=== PATIENT | female | born 1990 | race Caucasian/White ===

== ENCOUNTER 2016-05-13 10:51 | Emergency (ER) | payer OTHER ==
[~2016-05-13 10:51] MED LIST: ACET50TAOT PO; ANUS2.5C2 TOP; BREO1INH INH; DIPH50CA PO; DOCU10ELUD PO; IBUP600T26 PO; MOM30SS PO; MOTR200T44 PO; PROA1AER INH; TYLE325T5 PO; VALT500T PO
[2016-05-13] MEDS ORDERED: NORCO, ANEXSIA 5/325MG TABLET (HYDROcodone/ACETAMINOPHEN) As Ordered ONE (11:38)
--- NOTE | 2016-05-13 12:38 | REP ---
THORACIC SPINE, FOUR VIEWS: HISTORY: Trauma. There is no acute fracture or subluxation. The intervertebral discs are normal in height. There is minimal scoliosis of the upper thoracic spine convex to the right. IMPRESSION: There is no acute fracture or subluxation. Signed by Brett Arshad MD 05/13/2016 12:50 P
--- NOTE | 2016-05-13 12:51 | EDDOCDS ---
Physician Documentation [facility] Name: Matilde Anguiano Age: 25 yrs Sex: Female : 1990 Arrival Date: 05/13/2016 Time: 10:51 Bed PD Private MD: Xiao Black Disposition: 05/13/16 12:44 Discharged to Home/Self Care. Impression: Fall due to ice and snow, Contusion of back wall of thorax. - Condition is Stable. - Discharge Instructions: Contusion. - Prescriptions for Ultram 50 mg Oral Tablet - take 1 tablet by ORAL route every 6 hours As needed MDD: 4 tabs; 12 tablet. - Medication Reconciliation, Work Release Form - 1 day form. - Follow up: Xiao Black; When: Call to arrange an appointment; Reason: Wound/Symptom Recheck, Recheck today's complaints, Worsening of conditions, Continuance of care. - Problem is new. - Symptoms have improved. Historical: - Allergies: Amoxicillin (Rash); Cefzil (Rash); Pediazole (Rash); Suprax (Rash); - Home Meds: 1. albuterol sulfate 90 mcg/actuation Inhl HFAA 2 puffs every 4-6 hours as needed 2. Arnuity Ellipta inhalation Unknown inhalation - PMHx: Asthma; Herpes; - PSHx: Appendectomy; - Social history: Smoking status: Patient uses tobacco products, current every day smoker. No barriers to communication noted, The patient speaks fluent Greenlandic, Speaks appropriately for age. - Family history: Not pertinent. - : The pt / caregiver states he / she is not on anticoagulants. Home medication list is obtained from the patient. - Exposure Risk Screening:: None identified. 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 6 in. (167.64 cm) (R); Pain 6/10; 10:52 Body Mass Index 38.74 (108.86 kg, 167.64 cm) ct3 MDM: 11:32 HYDROcodone-acetaminophen 5 mg-325 mg 2 tabs PO once ordered. cc10 11:33 Spine, Thoracic 3 Views Ordered. EDMS 11:46 Financial registration complete. va Administered Medications: 11:40 Drug: HYDROcodone-acetaminophen 2 tabs [hydrocodone 5 mg-acetaminophen 325 mg tablet (2 yanethk tabs)] Route: PO; Signatures: Dispatcher [employer] EDND [place]io Anne RN RN ml6 Kylah Chase RN RN Kit Beasley PA-C PATiffanie cc10 Glenny Aiken Jean RN jmk MTDD
--- NOTE | 2016-05-13 12:51 | EDDOCDS ---
Nurse's Notes [facility] Name: Matilde Anguiano Age: 25 yrs Sex: Female : 1990 Arrival Date: 05/13/2016 Time: 10:51 Bed PD Private MD: Xiao Black Diagnosis: Fall due to ice and snow;Contusion of back wall of thorax Presentation: 05/13 11:02 Presenting complaint: Patient states: "I fell on my back in my driveway this morning." ead pt c/o upper back pain that radiates down. Denies hitting head or LOC with fall. Acute neurological deficits are not present. Mechanism of Injury: Fall fell from standing. Adult Sepsis Screening: The patient does not have new or worsening altered mentation. Patient's respiratory rate is less than 22. Systolic blood pressure is greater than 100. Patient has a qSOFA score of 0- Negative Sepsis Screen. Suicide/Homicide risk assessment- the patient denies having any suicidal and/or homicidal ideations and does not present with any other emotional, behavioral or mental health complaints. Status: Patient is not a supervisor volunteer services or dependent. Transition of care: patient was not received from another setting of care. 11:02 Acuity: ANGELICA Level 4 ead 11:02 Method Of Arrival: Walkin/Carried/Asstd ead Triage Assessment: 11:04 General: Appears in no apparent distress, Behavior is appropriate for age, cooperative. ead Pain: Location: back Pain currently is 6 out of 10 on a pain scale. HIV screening NA for this visit Offered previously. Neurological: Level of Consciousness is awake, alert, obeys commands, Oriented to person, place, time. Respiratory: Airway is patent Respiratory effort is even, unlabored. Musculoskeletal: Reports pain in back. 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 albuterol sulfate 90 mcg/actuation Inhl HFAA 2 puffs every 4-6 hours as needed 2. Arnuity Ellipta inhalation Unknown inhalation - PMHx: Asthma; Herpes; - PSHx: Appendectomy; - Social history: Smoking status: Patient uses tobacco products, current every day smoker. No barriers to communication noted, The patient speaks fluent Trinidadian, Speaks appropriately for age. - Family history: Not pertinent. - : The pt / caregiver states he / she is not on anticoagulants. Home medication list is obtained from the patient. - Exposure Risk Screening:: None identified. Screenin:49 Screening information is obtained from the patient. Fall risk: No risks identified. ml6 Assistance ADL's: requires no assistance with activities of daily living. Abuse/DV Screen: The patient / caregiver reports he/she is: not in a situation that causes fear, pain or injury. Nutritional screening: No deficits noted. Advance Directives: Currently, there is no health care proxy. home support is adequate. Assessment: 12:48 General: Appears in no apparent distress, Behavior is appropriate for age, cooperative. ml6 Pain: Denies pain. Neurological: No deficits noted. Level of Consciousness is awake, alert, Oriented to person, place, time, Blasting Contract Miner are equal bilaterally Moves all extremities. Gait is steady. Cardiovascular: No deficits noted. Capillary refill < 3 seconds is brisk in bilateral fingers toes Heart tones S1 S2 present. Respiratory: No deficits noted. Airway is patent Respiratory effort is even, unlabored, Respiratory pattern is regular, symmetrical, Breath sounds are clear bilaterally. GI: No deficits noted. Vital Signs: 10:52 BP 143 / 63; Pulse 79; Resp 18; Temp 98.6(O); Pulse Ox 100% on R/A; Weight 108.86 kg ct3 (R); Height 5 ft. 6 in. (167.64 cm) (R); Pain 6/10; 10:52 Body Mass Index 38.74 (108.86 kg, 167.64 cm) ct3 Vitals: 10:52 Log In Time: May 13, 2016 at 10:50. ct3 ED Course: 10:52 Patient visited by Chelo Chakraborty PCA. ct3 10:52 Xiao Black is Private Physician. ct3 10:52 Patient moved to Waiting ct3 10:53 Patient moved to Pre RCE ct3 11:03 Triage Initiated ead 11:05 Patient moved to Triage 3 ead 11:27 [facility] cc10 11:27 Trevon Flynn MD is Attending Physician. cc10 11:27 Patient visited by Kit Brown PA-C. cc10 11:27 Patient visited by Kit Brown PA-C. cc10 11:40 Patient moved to TR1 ar3 12:36 Patient moved to PD2 / ml6 12:39 Spine, Thoracic 3 Views Returned. EDMS 12:43 Xiao Black is Referral Physician. cc10 12:49 The patient / caregiver is instructed regarding the plan of care and ED course. ml6 12:49 No IV's were initiated during this patient's visit. No procedures done that require ml6 assistance. Administered Medications: 11:40 Drug: HYDROcodone-acetaminophen 2 tabs [hydrocodone 5 mg-acetaminophen 325 mg tablet (2 jmk tabs)] Route: PO; Order Results: Radiology Order: Spine, Thoracic 3 Views Test: Spine, Thoracic 3 Views REASON FOR EXAMINATION: Trauma; ; THORACIC SPINE, FOUR VIEWS:; ; HISTORY: Trauma.; ; There is no acute fracture or subluxation. The intervertebral discs are normal in; height. There is minimal scoliosis of the upper thoracic spine convex to the; right.; ; IMPRESSION:; There is no acute fracture or subluxation.; ; ; ; Unreviewed; Outcome: 12:44 Discharge ordered by Provider. cc10 12:49 Discharge Assessment: patient administered narcotics - no. The following High Risk ml6 Discharge criteria are identified: None. Discharged to home ambulatory, with friend. Condition: stable. Discharge instructions given to. No special radiology studies were completed. Property :Personal belongings accompany Pt. 12:51 Patient left the ED. ml6 Signatures: Dispatcher [employer] EDNV Tom Tuttle RN RN jmk Lowe, Matthew, RN RN ml6 Liset Estrella, ANALYTICS SENIOR MANAGER ANALYTICS SENIOR MANAGER ar3 Chelo Chakraborty, ANALYTICS SENIOR MANAGER ANALYTICS SENIOR MANAGER ct3 Kylah Chase,RN Kit Manning PA-C PA-C cc10 MTDD
--- NOTE | 2016-05-15 13:52 | EDDOCDS ---
Physician Documentation [facility] Name: Matilde Anguiano Age: 25 yrs Sex: Female : 1990 Arrival Date: 05/13/2016 Time: 10:51 Bed PD Private MD: Xiao Black Disposition: 05/13/16 12:44 Discharged to Home/Self Care. Impression: Fall due to ice and snow, Contusion of back wall of thorax. - Condition is Stable. - Discharge Instructions: Contusion. - Prescriptions for Ultram 50 mg Oral Tablet - take 1 tablet by ORAL route every 6 hours As needed MDD: 4 tabs; 12 tablet. - Medication Reconciliation, Work Release Form - 1 day form. - Follow up: Xiao Black; When: Call to arrange an appointment; Reason: Wound/Symptom Recheck, Recheck today's complaints, Worsening of conditions, Continuance of care. - Problem is new. - Symptoms have improved. Historical: - Allergies: Amoxicillin (Rash); Cefzil (Rash); Pediazole (Rash); Suprax (Rash); - Home Meds: 1. albuterol sulfate 90 mcg/actuation Inhl HFAA 2 puffs every 4-6 hours as needed 2. Arnuity Ellipta inhalation Unknown inhalation - PMHx: Asthma; Herpes; - PSHx: Appendectomy; - Social history: Smoking status: Patient uses tobacco products, current every day smoker. No barriers to communication noted, The patient speaks fluent Luxembourger, Speaks appropriately for age. - Family history: Not pertinent. - : The pt / caregiver states he / she is not on anticoagulants. Home medication list is obtained from the patient. - Exposure Risk Screening:: None identified. LICENSED FINAL EXPENSE AGENTS: 05/13 11:04 LMP 04/22/2016 ead Vital Signs: 10:52 BP 143 / 63; Pulse 79; Resp 18; Temp 98.6(O); Pulse Ox 100% on R/A; Weight 108.86 kg / ct3 240 lbs (R); Height 5 ft. 6 in. (167.64 cm) (R); Pain 6/10; 10:52 Body Mass Index 38.74 (108.86 kg, 167.64 cm) ct3 MDM: 11:32 HYDROcodone-acetaminophen 5 mg-325 mg 2 tabs PO once ordered. cc10 11:33 Spine, Thoracic 3 Views Ordered. EDMS 11:46 Financial registration complete. az 13:23 [facility] Payment Agreement was scanned into [employer] and attached to record. az 15:39 T-Sheet-- Draft Copy was scanned into [employer] and attached to record. klr Administered Medications: 11:40 Drug: HYDROcodone-acetaminophen 2 tabs [hydrocodone 5 mg-acetaminophen 325 mg tablet (2 jmk tabs)] Route: PO; Signatures: Dispatcher [employer] EDGA [place] Anne, RN RN ml6 Kylah Chase RN RN Kit Beasley, PA-C PA-C cc10 Glenny Aiken Kathie klr Knapp, Jean RN jmk The chart was reviewed and I authenticate all verbal orders and agree with the evaluation and treatment provided.Attachments: 13:23 [facility] Payment Agreement az 15:39 T-Sheet-- Draft Copy klr Chart Complete MTDD
--- NOTE | 2016-05-15 13:52 | EDDOCDS ---
Nurse's Notes [facility] Name: Matilde Anguiano Age: 25 yrs Sex: Female : 1990 Arrival Date: 05/13/2016 Time: 10:51 Bed PD Private MD: Xiao Black Diagnosis: Fall due to ice and snow;Contusion of back wall of thorax Presentation: 05/13 11:02 Presenting complaint: Patient states: "I fell on my back in my driveway this morning." ead pt c/o upper back pain that radiates down. Denies hitting head or LOC with fall. Acute neurological deficits are not present. Mechanism of Injury: Fall fell from standing. Adult Sepsis Screening: The patient does not have new or worsening altered mentation. Patient's respiratory rate is less than 22. Systolic blood pressure is greater than 100. Patient has a qSOFA score of 0- Negative Sepsis Screen. Suicide/Homicide risk assessment- the patient denies having any suicidal and/or homicidal ideations and does not present with any other emotional, behavioral or mental health complaints. Status: Patient is not a legal service specialist or dependent. Transition of care: patient was not received from another setting of care. 11:02 Acuity: ANGELICA Level 4 ead 11:02 Method Of Arrival: Walkin/Carried/Asstd ead Triage Assessment: 11:04 General: Appears in no apparent distress, Behavior is appropriate for age, cooperative. ead Pain: Location: back Pain currently is 6 out of 10 on a pain scale. HIV screening NA for this visit Offered previously. Neurological: Level of Consciousness is awake, alert, obeys commands, Oriented to person, place, time. Respiratory: Airway is patent Respiratory effort is even, unlabored. Musculoskeletal: Reports pain in back. 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 albuterol sulfate 90 mcg/actuation Inhl HFAA 2 puffs every 4-6 hours as needed 2. Arnuity Ellipta inhalation Unknown inhalation - PMHx: Asthma; Herpes; - PSHx: Appendectomy; - Social history: Smoking status: Patient uses tobacco products, current every day smoker. No barriers to communication noted, The patient speaks fluent Macedonian, Speaks appropriately for age. - Family history: Not pertinent. - : The pt / caregiver states he / she is not on anticoagulants. Home medication list is obtained from the patient. - Exposure Risk Screening:: None identified. Screenin:49 Screening information is obtained from the patient. Fall risk: No risks identified. ml6 Assistance ADL's: requires no assistance with activities of daily living. Abuse/DV Screen: The patient / caregiver reports he/she is: not in a situation that causes fear, pain or injury. Nutritional screening: No deficits noted. Advance Directives: Currently, there is no health care proxy. home support is adequate. Assessment: 12:48 General: Appears in no apparent distress, Behavior is appropriate for age, cooperative. ml6 Pain: Denies pain. Neurological: No deficits noted. Level of Consciousness is awake, alert, Oriented to person, place, time, Physical Design Engineer are equal bilaterally Moves all extremities. Gait is steady. Cardiovascular: No deficits noted. Capillary refill < 3 seconds is brisk in bilateral fingers toes Heart tones S1 S2 present. Respiratory: No deficits noted. Airway is patent Respiratory effort is even, unlabored, Respiratory pattern is regular, symmetrical, Breath sounds are clear bilaterally. GI: No deficits noted. Vital Signs: 10:52 BP 143 / 63; Pulse 79; Resp 18; Temp 98.6(O); Pulse Ox 100% on R/A; Weight 108.86 kg ct3 (R); Height 5 ft. 6 in. (167.64 cm) (R); Pain 6/10; 10:52 Body Mass Index 38.74 (108.86 kg, 167.64 cm) ct3 Vitals: 10:52 Log In Time: May 13, 2016 at 10:50. ct3 ED Course: 10:52 Patient visited by Chelo Chakraborty PCA. ct3 10:52 Xiao Black is Private Physician. ct3 10:52 Patient moved to Waiting ct3 10:53 Patient moved to Pre RCE ct3 11:03 Triage Initiated ead 11:05 Patient moved to Triage 3 ead 11:27 Kit [facility] cc10 11:27 Trevon Flynn MD is Attending Physician. cc10 11:27 Patient visited by Kit Brown PA-C. cc10 11:27 Patient visited by Kit Brown PA-C. cc10 11:40 Patient moved to TR1 ar3 12:36 Patient moved to PD2 / ml6 12:39 Spine, Thoracic 3 Views Returned. EDMS 12:43 Xiao Black is Referral Physician. cc10 12:49 The patient / caregiver is instructed regarding the plan of care and ED course. ml6 12:49 No IV's were initiated during this patient's visit. No procedures done that require ml6 assistance. 13:23 [facility] Payment Agreement was scanned into [employer] and attached to record. de 15:39 T-Sheet-- Draft Copy was scanned into [employer] and attached to record. klr Administered Medications: 11:40 Drug: HYDROcodone-acetaminophen 2 tabs [hydrocodone 5 mg-acetaminophen 325 mg tablet (2 jmk tabs)] Route: PO; Order Results: Radiology Order: Spine, Thoracic 3 Views Test: Spine, Thoracic 3 Views REASON FOR EXAMINATION: Trauma; THORACIC SPINE, FOUR VIEWS:; ; HISTORY: Trauma.; ; There is no acute fracture or subluxation. The intervertebral discs are normal in; height. There is minimal scoliosis of the upper thoracic spine convex to the; right.; ; IMPRESSION:; ; There is no acute fracture or subluxation.; ; ; Signed by; Brett Arshad MD 05/13/2016 12:50 P; Outcome: 12:44 Discharge ordered by Provider. cc10 12:49 Discharge Assessment: patient administered narcotics - no. The following High Risk ml6 Discharge criteria are identified: None. Discharged to home ambulatory, with friend. Condition: stable. Discharge instructions given to. No special radiology studies were completed. Property :Personal belongings accompany Pt. 12:51 Patient left the ED. ml6 Signatures: [facility]patcher [facility] ED[facility] Tom Tuttle RN RN jmk Lowe, Matthew, RN RN ml6 Liset Estrella, SUPERVISOR TUBING SUPERVISOR TUBING ar3 Chelo Chakraborty, SUPERVISOR TUBING SUPERVISOR TUBING ct3 Kylah Chase RN RN ead Coniski, Colin, PA-C PA-C cc10 Glenny Aiken Kathie klr Chart Complete MTDD
--- NOTE | 2016-05-15 13:52 | EDDOCDS ---
Physician Documentation [facility] Name: Matilde Anguiano Age: 25 yrs Sex: Female : 1990 Arrival Date: 05/13/2016 Time: 10:51 Bed PD Private MD: Xiao Black Disposition: 05/13/16 12:44 Discharged to Home/Self Care. Impression: Fall due to ice and snow, Contusion of back wall of thorax. - Condition is Stable. - Discharge Instructions: Contusion. - Prescriptions for Ultram 50 mg Oral Tablet - take 1 tablet by ORAL route every 6 hours As needed MDD: 4 tabs; 12 tablet. - Medication Reconciliation, Work Release Form - 1 day form. - Follow up: Xiao Black; When: Call to arrange an appointment; Reason: Wound/Symptom Recheck, Recheck today's complaints, Worsening of conditions, Continuance of care. - Problem is new. - Symptoms have improved. Historical: - Allergies: Amoxicillin (Rash); Cefzil (Rash); Pediazole (Rash); Suprax (Rash); - Home Meds: 1. albuterol sulfate 90 mcg/actuation Inhl HFAA 2 puffs every 4-6 hours as needed 2. Arnuity Ellipta inhalation Unknown inhalation - PMHx: Asthma; Herpes; - PSHx: Appendectomy; - Social history: Smoking status: Patient uses tobacco products, current every day smoker. No barriers to communication noted, The patient speaks fluent Salvadorean, Speaks appropriately for age. - Family history: Not pertinent. - : The pt / caregiver states he / she is not on anticoagulants. Home medication list is obtained from the patient. - Exposure Risk Screening:: None identified. 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 6 in. (167.64 cm) (R); Pain 6/10; 10:52 Body Mass Index 38.74 (108.86 kg, 167.64 cm) ct3 MDM: 11:32 HYDROcodone-acetaminophen 5 mg-325 mg 2 tabs PO once ordered. cc10 11:33 Spine, Thoracic 3 Views Ordered. EDMS 11:46 Financial registration complete. az 13:23 [facility] Payment Agreement was scanned into [employer] and attached to record. az 15:39 T-Sheet-- Draft Copy was scanned into [employer] and attached to record. klr Administered Medications: 11:40 Drug: HYDROcodone-acetaminophen 2 tabs [hydrocodone 5 mg-acetaminophen 325 mg tablet (2 jmk tabs)] Route: PO; Signatures: Dispatcher [employer] EDWA [place] Anne, RN RN ml6 Kylah Chase RN RN Kit Beasley, PA-C PA-C cc10 Glenny Aiken Kathie klr Knapp, Jean RN jmk The chart was reviewed and I authenticate all verbal orders and agree with the evaluation and treatment provided.Attachments: 13:23 [facility] Payment Agreement az 15:39 T-Sheet-- Draft Copy klr Chart Complete MTDD
== END 2016-05-13 12:51 | disposition home or self-care (01) ==
LOC: M ED 10:51
DX: S20.229A Contusion of unspecified back wall of thorax, initial encounter (principal); W00.0XXA Fall on same level due to ice and snow, initial encounter; Y92.019 Unspecified place in single-family (private) house as the place of occurrence of the external cause; Y93.9 Activity, unspecified; Y99.9 Unspecified external cause status; J45.909 Unspecified asthma, uncomplicated; Z72.0 Tobacco use; Z88.0 Allergy status to penicillin; Z88.1 Allergy status to other antibiotic agents

== ENCOUNTER → 2016-05-20 | Outpatient (CLI) | payer OTHER ==
--- NOTE | 2016-05-20 13:20 | REP ---
Clinical: Lower back pain. Technique: AP and lateral views of the lumbosacral spine. Findings: Alignment and lordosis maintained. Mild hypertrophic facet changes at the L5-S1 level cannot be excluded and underlying spondylolysis cannot be excluded. There is no evidence for acute fracture / compression injury or subluxation. Impression: Hypertrophic facet changes at L5-S1 may reflect underlying chronic spondylolysis. Otherwise normal alignment and lordosis. Signed by Jose Ribeiro MD 05/20/2016 01:11 P
== END ==
LOC: M RAD 12:38
PROVIDERS: ATTEND Nurse Practitioner Adult Health
DX: S30.0XXD Contusion of lower back and pelvis, subsequent encounter (principal); M54.5 Low back pain; M25.551 Pain in right hip; M51.36 Other intervertebral disc degeneration, lumbar region; Y92.9 Unspecified place or not applicable; Y93.89 Activity, other specified; Y99.8 Other external cause status; X58.XXXD Exposure to other specified factors, subsequent encounter

== ENCOUNTER → 2016-05-31 | Outpatient (CLI) | payer OTHER ==
--- NOTE | 2016-06-01 08:57 | REP ---
LUMBAR SPINE WITHOUT CONTRAST: HISTORY: Back pain. There is no disc bulge or herniation at the L1-2 through L3-4 and L5-S1 levels. The nerves exit the neural foramina without compression. A diffuse disc bulge and small central disc protrusion are present at the L4-5 level. There is minimal compression of the thecal sac. The L4 nerves exit the neural foramina without compression. The conus medullaris is normal in appearance terminating at the level of the L1-2 intervertebral disc. Normal signal intensity is present in the lumbar intervertebral discs and vertebral bodies. A 1.5 cm cyst is present in the right kidney. A cystic structure is present in the left pelvis. This is incompletely visualized. IMPRESSION: 1. Diffuse disc bulge and small central disc protrusion at the L4-5 level with minimal thecal sac compression. 2. 1.5 cm right renal cyst. 3. There is a cystic structure in the left pelvis that is incompletely seen. Ultrasound of the kidneys and pelvis may be helpful for further evaluation. Signed by Brett Arshad MD 06/03/2016 08:41 A
== END ==
LOC: M RAD 14:33
PROVIDERS: ATTEND Nurse Practitioner Adult Health
DX: S30.0XXD Contusion of lower back and pelvis, subsequent encounter (principal); M54.5 Low back pain; M25.551 Pain in right hip; N28.1 Cyst of kidney, acquired; N94.89 Other specified conditions associated with female genital organs and menstrual cycle

== ENCOUNTER 2016-07-09 12:20 | Emergency (ER) | payer OTHER ==
[~2016-07-09] VITALS: Ht 167.6 cm; Wt 108.9 kg
[2016-07-09 16:19] VITALS: BP 155/72
[2016-07-09] MEDS ORDERED: ZANA4CAP PO (16:29)
[2016-07-09] MEDS ORDERED: MOBI7.5T10 PO (16:29)
[2016-07-09] MEDS ORDERED: PRED20TA PO (16:29)
[2016-07-09] MEDS ORDERED: PERC5TAB6 PO (16:29)
[2016-07-09] MEDS ORDERED: NAPROXEN 250 MG TAB PO ONE (16:30)
== END 2016-07-09 16:39 | disposition home or self-care (01) ==
LOC: M ED 13:24
DX: M54.5 Low back pain (principal); G89.29 Other chronic pain; J45.909 Unspecified asthma, uncomplicated; F17.200 Nicotine dependence, unspecified, uncomplicated; Z88.1 Allergy status to other antibiotic agents; Z88.0 Allergy status to penicillin; Z88.8 Allergy status to other drugs, medicaments and biological substances; Z79.51 Long term (current) use of inhaled steroids

== ENCOUNTER → 2016-08-02 | Outpatient (CLI) | payer OTHER ==
[~2016-08-02] MED LIST changes: +MOBI7.5T10 PO; +PERC5TAB6 PO; +PRED20TA PO; +ZANA4CAP PO
--- NOTE | 2016-08-13 01:44 | ECWPNPC ---
PATIENT NAME: CEDRICK QUARLES : 1990 GENDER: FEMALE VISIT DATE: 08/02/2016 DISCHARGE DATE: 08/02/16 1306 VISIT LOCKED DATE TIME: PHYSICIAN: TRUDY LOUIS RESOURCE: TRUDY LOUIS REASON FOR APPOINTMENT 1. LOW BACK PAIN HISTORY OF PRESENT ILLNESS 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 OF NIXON TRAORE NP FOR LOW BACK PAIN THAT RADIATES DOWN RIGHT POSTERIOR LEG.THIS BEGAN AFTER FALLING ON ICE GOING DOWN STAIRS IN MAY 2016.DESCRIBES PAIN CONSTANT LOW BACK ACHE WITH INTERMITTENT RIGHT POSTERIOR LEG PAIN.PAIN IS AGGREVATED BY PROLONGED SITTING,WALKING AND LIFTING.PAIN IS RELIEVED BY LAYING DOWN AND IBUPROFEN OR TYLENOL.NO PRIOR TREATMENTS.RATING PAIN VAS 8/10.NO BOWEL OR BLADDER INCONTINENCE .NO RECENT FEVER ,ILLNESS OR SUDDEN WEIGHT LOSS. SCREENING :NO FALLS IN THE PAST YEAR PAIN SCREENING: PATIENT HAS A COMPLAINT OF ACUTE OR CHRONIC PAIN :YES CURRENT MEDICATIONS TAKING VENTOLIN HFA 108 (90 BASE) MCG/ACT AEROSOL SOLUTION 2 PUFFS NEEDED INHALATION EVERY 4 HRS TAKING ARNUITY ELLIPTA 200 MCG/ACT AEROSOL POWDER BREATH ACTIVATED 1 PUFF INHALATION ONCE A DAY TAKING FLUTICASONE FUROATE 200 MCG/ACT AEROSOL POWDER BREATH ACTIVATED 1 PUFF INHALATION ONCE A DAY PRN TAKING IBUPROFEN 800 MG TABLET 1 TABLET WITH FOOD OR MILK ORALLY THREE TIMES DAILY NEEDED TAKING TYLENOL EXTRA STRENGTH 500 MG TABLET 2 TABLETS NEEDED ORALLY EVERY 6 HRS DISCONTINUED VALTREX 500 MG TABLET 2 TABLETS ORALLY EVERY 12 HRS DISCONTINUED METAMUCIL 0.52 GM CAPSULE 2 CAPSULES WITH 8 OUNCES OF LIQUID ORALLY THREE TIMES A DAY DISCONTINUED VALACYCLOVIR HCL 500 MG TABLET 2 TABLETS ORALLY EVERY 12 HRS DISCONTINUED CETIRIZINE HCL 10 MG TABLET 1 TABLET ORALLY ONCE A DAY DISCONTINUED PSYLLIUM 0.52 GM CAPSULE 2 CAPSULES WITH 8 OUNCES OF LIQUID ORALLY BID DISCONTINUED METHOCARBAMOL 750 MG TABLET 1 TABLET ORALLY BEFORE BEDTIME DISCONTINUED HYDROCODONE-ACETAMINOPHEN 5-325 MG TABLET 1 TABLET NEEDED ORALLY EVERY 6 HRS DISCONTINUED TIZANIDINE HCL 4 MG TABLET 1 TABLET NEEDED ORALLY THREE TIMES A DAY DISCONTINUED NABUMETONE 500 MG TABLET ORALLY BID MEDICATION LIST REVIEWED AND RECONCILED WITH THE PATIENT PAST MEDICAL HISTORY BACK AND NECK PAIN VAGINAL HERPIES ASTHMA ALLERGIES CEFZIL: RASH: ALLERGY SUPRAX: RASH: ALLERGY AMOXICILLIN: RASH: ALLERGY PEDIZOLE: RASH: ALLERGY SURGICAL HISTORY APPENDECTOMY 2004 FAMILY HISTORY FATHER: ALIVE 62 YRS, DIAGNOSED WITH DIABETES, OTHER MOTHER: ALIVE 46 YRS, DIAGNOSED WITH OTHER 3 SON(S) , 1 DAUGHTER(S) - HEALTHY. FATHER--ASTHMAMOTHER--ASTHMAOLDEST SON--ADHD. SOCIAL HISTORY GENERAL: TOBACCO USE ARE YOU A:CURRENT SMOKER HOW MANY CIGARETTES A DAY DO YOU SMOKE?6-10 HOW SOON AFTER YOU WAKE UP DO YOU SMOKE YOUR FIRST CIGARETTE?31-60 MIN HOW OFTEN DO YOU SMOKE CIGARETTES?EVERY DAY PATIENT COUNSELED ON THE DANGERS OF TOBACCO USE AND URGED TO QUIT:08/02/2016 ARE YOU INTERESTED IN QUITTING?NOT READY TO QUIT COUNSELED THE PATIENT ON SMOKING EFFECTS, EDUCATION [id number]/2017 ALCOHOL SCREENING POINTS0 INTERPRETATIONNEGATIVE RECREATIONAL DRUG USE DRUG USE?YES HOW OFTEN AND HOW MUCH? MARIJUANA-- 1 Q NIGHT CAFFEINE CAFFEINE USE?YES HOW OFTEN AND HOW MUCH? 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 EXERCISE: NO REGULAR EXERCISE. MARITAL STATUS: . OTHERS AT HOME: SPOUSE, CHILDREN. PETS: NONE. YARSANI [id number] SCIENTOLOGY LANGUAGE LANGUAGES SPOKEN:[place] ISLANDER EDUCATION LEVEL OF EDUCATION: GED LEARNING BARRIERS / SPECIAL NEEDS BARRIERS TO LEARNING?NO HEARING IMPAIRED?NO VISION IMPAIRED?YES :CORRECTIVE LENSES COGNITIVELY IMPAIRED?NO READINESS TO LEARN?YES LEARNING PREFERENCES?NO LEARNING CAPABILITIES PRESENT?YES EMOTIONAL BARRIERS?NO SPECIAL DEVICES?NO TROLLEY CAR OPERATOR NEEDED?NO PAIN CLINIC PFS, CLERGY, PUBLIC HEALTH REFERRALS PFS REFERRAL NEEDED?NO CLERGY REFERRAL NEEDED?NO PUBLIC HEALTH REFERRAL NEEDED?NO ADVANCED DIRECTIVES HEALTH CARE PROXY?NO WOULD YOU LIKE MORE INFORMATION?NO DO YOU HAVE A DNR?NO WOULD YOU LIKE MORE INFORMATION?NO LIVING WILL?NO WOULD YOU LIKE MORE INFORMATION?NO POWER OF DESIGN VERIFICATION ENGINEER?NO WOULD YOU LIKE MORE INFORMATION?NO PLAN OF CARE FOR THE PAIN CENTER REVIEWED WITH PT. AND SHE VERBALIZED UNDERSTANDING. HOSPITALIZATION/MAJOR DIAGNOSTIC PROCEDURE PNEUMONIA-SEVERAL TIMES CHILD APPENDECTOMY 2004 REVIEW OF SYSTEMS CONSTITUTIONAL: ANY CHANGE IN YOUR MEDICAL CONDITION? NO . CHILLS NO . FEVER NO . INFECTION: DO YOU HAVE NEW INFECTIONS? NO . DO YOU HAVE HISTORY OF MRSA? NO . MUSCULOSKELETAL: ANY NEW PATTERNS OF PAIN OR NUMBNESS? YES, PAST WEEK HAS NOTICED STIFFNESS IN HER NECK--THIS GETS BETTER THE DAY GOES ON. NUMBNESS IN RIGHT ARM--SHE FEELS THIS IS RELATED TO THE WAY SHE SLEEPS . SYTEMIC LUPUS NO . GASTROENTEROLOGY: ANY NEW CHANGE IN BOWEL CONTROL? NO . BARRETTS ESOPHAGUS NO . CIRRHOSIS NO . HEPATITIS NO . LIVER FAILURE NO . ACID REFLUX NO . UNEXPLAINED WEIGHT LOSS NO . GENITOURINARY: ANY NEW CHANGE IN BLADDER CONTROL? NO . IS THERE A CHANCE YOU COULD BE ? NO . HEMATOLOGY/LYMPH: DO YOU TAKE ANY BLOOD THINNERS? (FOR EXAMPLE- COUMADIN, PLAVIX, AGGRENOX, PLATEL, PRADAXA, OR XARELTO) NO . WHEN WAS YOUR LAST DOSE? DATE: TIME: . LOW PLATELET COUNT NO . SICKLE CELL DISEASE NO . VON WILLIEBRANDS NO . FACTOR V LEIDEN NO . THALLASEMIA NO . ANEMIA NO . EASY BRUISING NO . NEUROLOGY: HAVE YOU FALLEN IN THE PAST 6 MONTHS? YES, IN MAY. SLIPPED ON ICE SINCE THAT TIME SHE HAS BACK PAIN. . ANY NEW EXTREMITY NUMBNESS OR WEAKNESS? NO . HEAD INJURY NO . DEMENTIA NO . CEREBRAL PALSY NO . MULTIPLE SCLEROSIS NO . DIZZINESS NO . HEADACHE HISTORY OF MIGRAINES A TEENAGER . STROKES NO . VERTIGO NO . CARDIOLOGY: DO YOU HAVE A PACEMAKER OR DEFIBRILLATOR? NO . ANGINA NO . HEART ATTACK NO . HEART SURGERY NO . CONGESTIVE HEART FAILURE/FLUID OVERLOAD NO . CHEST PAIN NO . HIGH BLOOD PRESSURE NO . IRREGULAR HEART BEAT NO . RESPIRATORY: HAVE YOU BEEN SICK IN THE PAST WEEK? NO . FEVER NO . FLU LIKE SYMPTOMS? NO . CPAP NO . BYPAP NO . ASTHMA YES . EMPHYSEMA NO . CHRONIC LUNG DISEASES NO . SHORTNESS OF BREATH ON EXERTION NO . COUGH NO . SNORING YES, NEVER BEEN TESTED FOR JAMES . INTEGUMENTARY: DO YOU HAVE ANY RASHES OR OPEN SORES? NO . ALLERGIC/IMMUNO: ARE YOU ALLERGIC TO SHELLFISH OR IV DYE? NO . ANY NEW ALLERGIES? NO . PSYCHIATRIC: DO YOU HAVE THOUGHTS OF HURTING YOURSELF OR SOMEONE ELSE? NO . ARE YOU ABUSED, NEGLECTED, OR IN AN UNSAFE ENVIRONMENT? NO . ENDOCRINOLOGY: ARE YOU DIABETIC? NO . THYROID DISORDER NO . OTHER: DO YOU NEED ANY PRESCRIPTIONS? NO . IF YES, PLEASE LIST: ____ . ANY NEW PROBLEMS WITH YOUR MEDICATIONS? NO . WHEN DID YOU LAST EAT? ____ . WHEN DID YOU LAST DRINK? ____ . WHAT DID YOU LAST DRINK? ____ . NAME OF PERSON DRIVING YOU HOME? ____ . DO YOU HAVE ANY OTHER QUESTIONS OR CONCERNS WANTS SOMETHING FOR PAIN RELIEF . REVIEWED BY: PROVIDER: TRUDY LOGAN . VITAL SIGNS WT 257.2 LBS, HT 67", BMI 40.28 INDEX, BP 134/61 MM HG, HR 92 /MIN, RR 18 /MIN, TEMP 98.1 F, OXYGEN SAT % 98%, NA INITIALS TL 1136, REVIEWED BY: AD. EXAMINATION GENERAL EXAMINATION: GENERAL APPEARANCE:NO ACUTE DISTRESS. HEENT:PUPILS EQUAL, ROUND, REACTIVE TO LIGHT (PERRL), CLEAR CONJUCTIVA, NORMOCEPHALIC. LUNGS:LUNG [place] ARE CLEAR TO AUSCULTATION BILATERALLY. GOOD MOVEMENT OF AIR. HEART:HEART SOUNDS ARE NORMAL, RHYTHM IS REGULAR, NO MURMUR. ABDOMEN:NORMAL WITHOUT TENDERNESS, MASSES, OR MEGALY. DIAGNOSTIC DATA-MRI L/S [id number]-REVIEWED. LUMBAR SPINE/LOWER BACK: INSPECTION:NORMAL CURVATURE OF SPINE. PALPATION:VERTEBRAL SPINE TENDERNESS, MODERATE SI JOINT TENDERNESS. MOTOR SYSTEM:5/5 BLE. SENSORY EXAM:NORMAL BILATERAL LE. GAIT:NORMAL. ASSESSMENTS PROTRUSION OF LUMBAR INTERVERTEBRAL DISC - M51.26 (PRIMARY) LUMBAR RADICULOPATHY - M54.16 TREATMENT PROTRUSION OF LUMBAR INTERVERTEBRAL DISC CAUDAL/LUMBAR EPIDURALTRUDY LOUIS 08/02/2016 12:55:29 PM > LESI L4/5 NOTES: WHAT IS LUMBAR EPIDURAL INJECTION? MATERIAL WAS PRINTED,LUMBAR EPIDURAL INJECTION: YOUR PROCEDURE MATERIAL WAS PRINTED,LUMBAR EPIDURAL INJECTION: YOUR PROCEDURE MATERIAL WAS PRINTED. OTHERS NOTES: LUMBAR EPIDURAL INJECTION: RECOVERY AT HOME MATERIAL WAS PRINTED,WHAT IS LUMBAR EPIDURAL INJECTION? MATERIAL WAS PRINTED,LUMBAR EPIDURAL INJECTION: YOUR PROCEDURE MATERIAL WAS PRINTED. PREVENTIVE MEDICINE PAIN CLINIC TEACHING: PROCEDURE TEACHING LUMBAR EPIDURAL STEROID INJECTION INSTRUCTIONS REVIEWED WITH PT. VERBALIZED UNDERSTANDING.. PROCEDURE CODES FA211 ESTABILISHED PATIENT [facility] FACILITY CHARGE DISPOSITION & COMMUNICATION FOLLOW UP 2WK POST (REASON: L4/5 LESI) ELECTRONICALLY SIGNED BY DESMOND BROWN ON 08/12/2016 AT 01:49 PM EDT DISCLAIMER : THIS IS A VISIT SUMMARY EXTRACTED FROM THE [employer] CHART. IT IS NOT A COPY OF THE [employer] PROGRESS NOTE. MARIA EUGENIA
== END | disposition home or self-care (01) ==
LOC: M PAIN 11:20
PROVIDERS: ATTEND Nurse Practitioner Family
DX: G89.29 Other chronic pain (principal); M51.26 Other intervertebral disc displacement, lumbar region; M54.16 Radiculopathy, lumbar region; J45.909 Unspecified asthma, uncomplicated; A60.09 Herpesviral infection of other urogenital tract; Z79.899 Other long term (current) drug therapy; Z79.51 Long term (current) use of inhaled steroids; Z88.0 Allergy status to penicillin; Z88.1 Allergy status to other antibiotic agents; Z88.8 Allergy status to other drugs, medicaments and biological substances; F17.210 Nicotine dependence, cigarettes, uncomplicated

== ENCOUNTER → 2016-08-05 | Outpatient (CLI) | payer OTHER ==
--- NOTE | 2016-08-06 03:52 | REP ---
Clinical: Possible ovarian cyst . Technique: Transabdominal pelvic ultrasound followed by transvaginal examination for better evaluation of the endometrium and adnexa with color Doppler evaluation of the ovaries. Findings: Bladder is unremarkable and measures 11.9 x 10.2 x 7.1 cm . Normal anteverted uterus measures 11.1 x 4.1 x 5.4 cm . The endometrial complex measures 2.4 mm thickness. No discrete uterine or endometrial abnormalities are appreciated. Bilateral ovaries are normal in appearance and vascularity without evidence for torsion. Right ovary measures 2.9 x 1.3 x 3.57 ; R I = 0.48. Left ovary measures the 2.6 x 1.9 x 1.8; R I = 0.58. No pelvic fluid or adnexal mass lesions per . Impression: 1. Normal pelvic ultrasound. No ovarian cysts. Signed by Jose Ribeiro MD 08/06/2016 03:42 A
--- NOTE | 2016-08-06 04:05 | REP ---
Clinical: Right renal cyst. Technique: Real time kinney scale ultrasound examination using curved array transducer. Findings: Bilateral kidneys are normal in contour, size, echogenicity, and reniform shape without hydronephrosis, nephrolithiasis, or mass lesion. No perinephric fluid collections are identified. Right kidney measures 11.4 x 6.5 x 4.5 cm with 1.4 relatively simple appearing lower pole cyst. Left kidney measures 11.0 x 5.7 x 6.2 cm without cyst. Bladder is collapsed. Impression: 1.4 cm simple appearing right lower pole cyst Signed by Jose Ribeiro MD 08/06/2016 03:56 A
== END ==
LOC: M RAD 09:11
PROVIDERS: ATTEND Nurse Practitioner Adult Health
DX: N28.1 Cyst of kidney, acquired (principal); I89.8 Other specified noninfective disorders of lymphatic vessels and lymph nodes

== ENCOUNTER → 2016-08-16 | Outpatient (CLI) | payer OTHER ==
[~2016-08-16] MED LIST changes: +ISOVUE-M 300 61% 15ML VIAL (Q9967) As Ordered ONE; +LIDOCAINE 1% SDV INJ 30 ML VIAL As Ordered ONE; +diazePAM 5 MG TAB As Ordered ONE; +methylPREDNISolone SUSP 40 MG/ML (DEPO-medrol) VIAL (J1030) As Ordered ONE; +oxyCODONE 5MG TAB As Ordered ONE
--- NOTE | 2016-08-16 14:00 | REP ---
PARTIAL LUMBAR SPINE SERIES: Six views. HISTORY: Injection procedure for pain. 17 seconds of fluoroscopy time is reported. FINDINGS: A sequence of six fluoroscopically obtained last image hold spot radiographs of the lumbosacral junction document needle position and contrast injection associated with lumbar spine injection procedure. Signed by Jose David Guadalupe MD 08/16/2016 03:06 P
--- NOTE | 2016-08-24 23:36 | ECWPNPC ---
PATIENT NAME: CEDRICK QUARLES : 1990 GENDER: FEMALE VISIT DATE: 08/16/2016 DISCHARGE DATE: 08/16/16 1315 VISIT LOCKED DATE TIME: PHYSICIAN: JOYCE SANCHEZ RESOURCE: JOYCE SANCHEZ REASON FOR APPOINTMENT 1. LE HISTORY OF PRESENT ILLNESS HISTORY OF PRESENT ILLNESS: PAIN THE PATIENT DESCRIBES THE PAIN... FALL RISK SCREENING: SCREENING :ONE FALL WITHOUT INJURY IN THE PAST YEAR CURRENT MEDICATIONS TAKING VENTOLIN HFA 108 (90 BASE) MCG/ACT AEROSOL SOLUTION 2 PUFFS NEEDED INHALATION EVERY 4 HRS, NOTES: @2100 TAKING ARNUITY ELLIPTA 200 MCG/ACT AEROSOL POWDER BREATH ACTIVATED 1 PUFF INHALATION ONCE A DAY, NOTES: 0130 TAKING FLUTICASONE FUROATE 200 MCG/ACT AEROSOL POWDER BREATH ACTIVATED 1 PUFF INHALATION ONCE A DAY PRN, NOTES: FEW MONTHS AGO TAKING IBUPROFEN 800 MG TABLET 1 TABLET WITH FOOD OR MILK ORALLY THREE TIMES DAILY NEEDED, NOTES: 08/15/16@0900 TAKING TYLENOL EXTRA STRENGTH 500 MG TABLET 2 TABLETS NEEDED ORALLY EVERY 6 HRS, NOTES: 3 DAYS AGO MEDICATION LIST REVIEWED AND RECONCILED WITH THE PATIENT PAST MEDICAL HISTORY BACK AND NECK PAIN VAGINAL HERPIES ASTHMA ALLERGIES CEFZIL: RASH: ALLERGY SUPRAX: RASH: ALLERGY AMOXICILLIN: RASH: ALLERGY PEDIZOLE: RASH: ALLERGY REVIEW OF SYSTEMS CONSTITUTIONAL: ANY CHANGE IN YOUR MEDICAL CONDITION? NO . CHILLS NO . FEVER NO . INFECTION: DO YOU HAVE NEW INFECTIONS? NO . DO YOU HAVE HISTORY OF MRSA? NO . MUSCULOSKELETAL: ANY NEW PATTERNS OF PAIN OR NUMBNESS? NO . GASTROENTEROLOGY: ANY NEW CHANGE IN BOWEL CONTROL? NO . GENITOURINARY: ANY NEW CHANGE IN BLADDER CONTROL? NO . IS THERE A CHANCE YOU COULD BE ? NO . HEMATOLOGY/LYMPH: DO YOU TAKE ANY BLOOD THINNERS? (FOR EXAMPLE- COUMADIN, PLAVIX, AGGRENOX, PLATEL, PRADAXA, OR XARELTO) NO . WHEN WAS YOUR LAST DOSE? DATE: TIME: . NEUROLOGY: HAVE YOU FALLEN IN THE PAST 6 MONTHS? YES . ANY NEW EXTREMITY NUMBNESS OR WEAKNESS? NO . CARDIOLOGY: DO YOU HAVE A PACEMAKER OR DEFIBRILLATOR? NO . RESPIRATORY: HAVE YOU BEEN SICK IN THE PAST WEEK? NO . FEVER NO . FLU LIKE SYMPTOMS? NO . COUGH NO . INTEGUMENTARY: DO YOU HAVE ANY RASHES OR OPEN SORES? NO . ALLERGIC/IMMUNO: ARE YOU ALLERGIC TO SHELLFISH OR IV DYE? NO . ANY NEW ALLERGIES? NO . PSYCHIATRIC: DO YOU HAVE THOUGHTS OF HURTING YOURSELF OR SOMEONE ELSE? NO . ARE YOU ABUSED, NEGLECTED, OR IN AN UNSAFE ENVIRONMENT? NO . ENDOCRINOLOGY: ARE YOU DIABETIC? NO . OTHER: DO YOU NEED ANY PRESCRIPTIONS? NO . IF YES, PLEASE LIST: ____ . ANY NEW PROBLEMS WITH YOUR MEDICATIONS? NO . WHEN DID YOU LAST EAT? ____0100 . WHEN DID YOU LAST DRINK? ____0100 . WHAT DID YOU LAST DRINK? ____COKE A . NAME OF PERSON DRIVING YOU HOME? ____FATHER . DO YOU HAVE ANY OTHER QUESTIONS OR CONCERNS [place] . REVIEWED BY: PROVIDER: . VITAL SIGNS WT 259.8 LBS, HT 67", BMI 40.69 INDEX, BP 120/69 MM HG, HR 90 /MIN, RR 18 /MIN, TEMP 97.6 F, OXYGEN SAT % 99%, NA INITIALS TL 1107, REVIEWED BY: VD. ASSESSMENTS INTERVERTEBRAL DISC DISORDERS WITH RADICULOPATHY, LUMBAR REGION - M51.16 (PRIMARY) PROCEDURES PRE PROCEDURE DIAGNOSIS LUMBAR DISC DISORDER WITH RADICULOPATHY POST PROCEDURE DIAGNOSIS LUMBAR DISC DISORDER WITH RADICULOPATHY PROCEDURE LUMBAR EPIDURAL STEROID INJECTION UNDER FLUOROSCOPIC GUIDANCE SURGEON DR. JOYCE SANCHEZ UNIFORM MAKER NONE ANESTHESIA LOCAL PRE PROCEDURE NOTE THE PATIENT HAS A HISTORY OF CHRONIC LOW BACK PAIN. I EVALUATE THE PATIENT AND REVIEWED THE CHART. I WENT OVER THE RISKS, ALTERNATIVES, AND BENEFITS ASSOCIATED WITH THIS PROCEDURE. THE PATIENT WOULD LIKE TO PROCEED AND GIVE CONSENT TO PERFORMED THE PROCEDURE. THE PATIENT DENIES UNEXPLAINABLE WEIGHT LOSS, FEVER, CHILLS, OR NEW CHANGES IN URINARY OR BOWEL CONTROL DESCRIPTION OF PROCEDURE THE PATIENT WAS BROUGHT TO THE PROCEDURE ROOM AND PLACED IN THE PRONE POSITION. THE LUMBOSACRAL AREA WAS CLEANED WITH BETADINE SOLUTION AND DRAPED ASEPTICALLY. THE PROCEDURE WAS DONE UNDER STERILE CONDITIONS. I CHECKED LATERALITY AND THE LEVEL WHERE THE PROCEDURE WAS GOING TO BE PERFORMED WITH THE PATIENT AND THE SUPPORTING STAFF AT THE MOMENT OF THE TIME OUT IN THE PROCEDURE ROOM. UNDER FLUOROSCOPIC GUIDANCE, THE TARGET POINT WAS SELECTED AT THE INTERLAMINAR LEVEL OF L4-L5. LIDOCAINE WAS USED TO NUMB THE SKIN AND THE SUBCUTANEOUS TISSUE BELOW IT. EPIDURAL TUOHY NEEDLE, 17-GAUGE, WAS ADVANCED UNDER FLUOROSCOPIC GUIDANCE AND FOLLOWING PATIENT FEEDBACK UNTIL THE EPIDURAL SPACE WAS REACHED, 7 CM DEEP INTO THE SKIN BY THE LOSS OF RESISTANCE TECHNIQUE. ISOVUE M DYE 30%, 0.25 ML, WAS INJECTED SHOWING ADEQUATE SPREAD OF THE DYE. THEN, A SOLUTION OF 3 ML OF NORMAL SALINE WITH DEPO-MEDROL 60 MG WAS INJECTED SLOWLY FOLLOWING PATIENT FEEDBACK. THERE WAS NO EVIDENCE OF BLOOD, PARESTHESIA OR CEREBROSPINAL FLUID DURING THE PROCEDURE. THE PATIENT WAS SENT TO THE RECOVERY ROOM. THE PATIENT WAS MOVING THE EXTREMITIES AND DOING WELL. THERE WAS NO COMPLICATION DURING THE PROCEDURE. FLUOROSCOPY TIME WAS 17 SECONDS POST PROCEDURE NOTE THE PATIENT WILL BE SEEN IN A FOLLOW UP IN THE NEXT FEW WEEKS. INSTRUCTIONS WERE GIVEN, QUESTIONS WERE ANSWERED, AND THE PATIENT EXPRESSED UNDERSTANDING AND AGREES WITH THE PLAN. I, LITA FARRELL, DOCUMENTED THE ABOVE INFORMATION ACTING A SCRIBE FOR DR. SANCHEZ. I HAVE REVIEWED THE ABOVE DOCUMENT, WRITTEN BY LITA FARRELL SCRIBE AND I VERIFY THAT IT IS ACCURATE DIAGNOSTIC IMAGING [facility] FLUORO GUIDE SPINE INJECTION (PAIN)[id number] PROCEDURE CODES 31384 LUMBAR/SACRAL W/ IMAGING 6045F RADXPS IN END [id number] PXD DISPOSITION & COMMUNICATION FOLLOW UP 3 WEEKS ELECTRONICALLY SIGNED BY JOYCE SANCHEZ MD ON 08/24/2016 AT 07:04 PM EDT DISCLAIMER : THIS IS A VISIT SUMMARY EXTRACTED FROM THE [employer] CHART. IT IS NOT A COPY OF THE [employer] PROGRESS NOTE. MTDD
== END | disposition home or self-care (01) ==
LOC: M PAIN 11:00
PROVIDERS: ATTEND Anesthesiology
DX: G89.29 Other chronic pain (principal); M51.16 Intervertebral disc disorders with radiculopathy, lumbar region; J45.909 Unspecified asthma, uncomplicated; A60.09 Herpesviral infection of other urogenital tract; Z79.899 Other long term (current) drug therapy; Z79.51 Long term (current) use of inhaled steroids; Z88.0 Allergy status to penicillin; Z88.1 Allergy status to other antibiotic agents; Z88.8 Allergy status to other drugs, medicaments and biological substances
CPT/HCPCS: 62323; J1030; Q9967

== ENCOUNTER → 2016-08-20 | Outpatient (CLI) | payer OTHER ==
[~2016-08-20] MED LIST changes: -ISOVUE-M 300 61% 15ML VIAL (Q9967) As Ordered ONE; -LIDOCAINE 1% SDV INJ 30 ML VIAL As Ordered ONE; -diazePAM 5 MG TAB As Ordered ONE; -methylPREDNISolone SUSP 40 MG/ML (DEPO-medrol) VIAL (J1030) As Ordered ONE; -oxyCODONE 5MG TAB As Ordered ONE
--- NOTE | 2016-08-20 23:17 | ECWPNPC ---
PATIENT NAME: CEDRICK QUARLES : 1990 GENDER: FEMALE VISIT DATE: 08/20/2016 DISCHARGE DATE: 08/20/16 09 VISIT LOCKED DATE TIME: PHYSICIAN: TRUDY LOUIS RESOURCE: TRUDY LOUIS REASON FOR APPOINTMENT 1. RIGHT FOOT NUMBENSS HISTORY OF PRESENT ILLNESS HISTORY OF PRESENT ILLNESS: PAIN THE PATIENT DESCRIBES THE PAIN... 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 FOR LOW BACK PAIN THAT RADIATES DOWN RIGHT POSTERIOR LEG.BEING SEEN ON AN URGENT BASIS.HAD LESI 5 DAYS AGO HERE.DID GOOD FOR 24HR THEN PAIN RETURNED.ALSO DESRIBES RIGHT FOOT NUMBNESS.NO FEVER OR BOWEL OR BLADDER INCONTINENCE.RATING PAIN VAS 8/10.THIS BEGAN AFTER FALLING ON ICE GOING DOWN STAIRS IN MAY 2016.DESCRIBES PAIN CONSTANT LOW BACK ACHE WITH INTERMITTENT RIGHT POSTERIOR LEG PAIN.PAIN IS AGGREVATED BY PROLONGED SITTING,WALKING AND LIFTING.PAIN IS RELIEVED BY LAYING DOWN AND IBUPROFEN OR TYLENOL.NO PRIOR TREATMENTS.RATING PAIN VAS 8/10.NO BOWEL OR BLADDER INCONTINENCE .NO RECENT FEVER ,ILLNESS OR SUDDEN WEIGHT LOSS. SCREENING :NO FALLS IN THE PAST YEAR :NO FALLS IN THE PAST YEAR CURRENT MEDICATIONS TAKING VENTOLIN HFA 108 (90 BASE) MCG/ACT AEROSOL SOLUTION 2 PUFFS NEEDED INHALATION EVERY 4 HRS, NOTES: @2100 TAKING ARNUITY ELLIPTA 200 MCG/ACT AEROSOL POWDER BREATH ACTIVATED 1 PUFF INHALATION ONCE A DAY, NOTES: 0130 TAKING FLUTICASONE FUROATE 200 MCG/ACT AEROSOL POWDER BREATH ACTIVATED 1 PUFF INHALATION ONCE A DAY PRN, NOTES: FEW MONTHS AGO TAKING IBUPROFEN 800 MG TABLET 1 TABLET WITH FOOD OR MILK ORALLY THREE TIMES DAILY NEEDED, NOTES: 08/15/16@0900 TAKING TYLENOL EXTRA STRENGTH 500 MG TABLET 2 TABLETS NEEDED ORALLY EVERY 6 HRS, NOTES: 3 DAYS AGO MEDICATION LIST REVIEWED AND RECONCILED WITH THE PATIENT PAST MEDICAL HISTORY BACK AND NECK PAIN VAGINAL HERPIES ASTHMA ALLERGIES CEFZIL: RASH: ALLERGY SUPRAX: RASH: ALLERGY AMOXICILLIN: RASH: ALLERGY PEDIZOLE: RASH: ALLERGY SURGICAL HISTORY APPENDECTOMY 2005 HOSPITALIZATION/MAJOR DIAGNOSTIC PROCEDURE PNEUMONIA-SEVERAL TIMES CHILD APPENDECTOMY 2004 REVIEW OF SYSTEMS CONSTITUTIONAL: ANY CHANGE IN YOUR MEDICAL CONDITION? NO . CHILLS NO . FEVER NO . INFECTION: DO YOU HAVE NEW INFECTIONS? NO . DO YOU HAVE HISTORY OF MRSA? NO . MUSCULOSKELETAL: ANY NEW PATTERNS OF PAIN OR NUMBNESS? YES. PT STATES SHE HAD A LE ON 08/16/16 HERE WITH US. SINCE THEN PT REPORTS NEW NUMBNESS IN HER RIGHT FOOT. PAINIS THE SAME IN RIGHT LEG 11/14. . GASTROENTEROLOGY: ANY NEW CHANGE IN BOWEL CONTROL? NO . GENITOURINARY: ANY NEW CHANGE IN BLADDER CONTROL? NO . IS THERE A CHANCE YOU COULD BE ? NO . HEMATOLOGY/LYMPH: DO YOU TAKE ANY BLOOD THINNERS? (FOR EXAMPLE- COUMADIN, PLAVIX, AGGRENOX, PLATEL, PRADAXA, OR XARELTO) NO . WHEN WAS YOUR LAST DOSE? DATE: TIME: . NEUROLOGY: HAVE YOU FALLEN IN THE PAST 6 MONTHS? YES. PT REPORTS FALLING ON ICE 05/2016 . ANY NEW EXTREMITY NUMBNESS OR WEAKNESS? NO . CARDIOLOGY: DO YOU HAVE A PACEMAKER OR DEFIBRILLATOR? NO . RESPIRATORY: HAVE YOU BEEN SICK IN THE PAST WEEK? NO . FEVER NO . FLU LIKE SYMPTOMS? NO . COUGH NO . INTEGUMENTARY: DO YOU HAVE ANY RASHES OR OPEN SORES? NO . ALLERGIC/IMMUNO: ARE YOU ALLERGIC TO SHELLFISH OR IV DYE? NO . ANY NEW ALLERGIES? NO . PSYCHIATRIC: DO YOU HAVE THOUGHTS OF HURTING YOURSELF OR SOMEONE ELSE? NO . ARE YOU ABUSED, NEGLECTED, OR IN AN UNSAFE ENVIRONMENT? NO . ENDOCRINOLOGY: ARE YOU DIABETIC? NO . OTHER: DO YOU NEED ANY PRESCRIPTIONS? NO . IF YES, PLEASE LIST: ____ . ANY NEW PROBLEMS WITH YOUR MEDICATIONS? NO . WHEN DID YOU LAST EAT? ____ . WHEN DID YOU LAST DRINK? ____ . WHAT DID YOU LAST DRINK? ____ . NAME OF PERSON DRIVING YOU HOME? ____ . DO YOU HAVE ANY OTHER QUESTIONS OR CONCERNS NO . REVIEWED BY: PROVIDER: TRUDY LOGAN . VITAL SIGNS WT 250 LBS, HT 67", BMI 39.15 INDEX, BP 124/67 MM HG, HR 84 /MIN, RR 16 /MIN, TEMP 97.1 F, OXYGEN SAT % 100%, SAFE IN ENV? (Y/N) Y, NA INITIALS SC 09:00, REVIEWED BY: EM. EXAMINATION GENERAL EXAMINATION: GENERAL APPEARANCE:NO ACUTE DISTRESS. HEENT:PUPILS EQUAL, ROUND, REACTIVE TO LIGHT (PERRL), CLEAR CONJUCTIVA, NORMOCEPHALIC. LUNGS:LUNG [place] ARE CLEAR TO AUSCULTATION BILATERALLY. GOOD MOVEMENT OF AIR. HEART:HEART SOUNDS ARE NORMAL, RHYTHM IS REGULAR, NO MURMUR. ABDOMEN:NORMAL WITHOUT TENDERNESS, MASSES, OR MEGALY. DIAGNOSTIC DATA-MRI L/S [id number]-REVIEWED. ASSESSMENTS PROTRUSION OF LUMBAR INTERVERTEBRAL DISC - M51.26 (PRIMARY) LUMBAR RADICULOPATHY - M54.16 SACROILIAC JOINT PAIN - M53.3 TREATMENT PROTRUSION OF LUMBAR INTERVERTEBRAL DISC NOTES: I WILL REQUEST RIGHT SIJ. PROCEDURE CODES FA211 ESTABILISHED PATIENT [facility] CHARGE DISPOSITION & COMMUNICATION FOLLOW UP 2WK POST CX MY F/U (REASON: I WILL REQUEST RIGHT SIJI WILL REQUEST RIGHT SIJ) ELECTRONICALLY SIGNED BY DESMOND BROWN ON 08/20/2016 AT 03:17 PM EDT DISCLAIMER : THIS IS A VISIT SUMMARY EXTRACTED FROM THE [employer] CHART. IT IS NOT A COPY OF THE [employer] PROGRESS NOTE. MARIA EUGENIA
== END | disposition home or self-care (01) ==
LOC: M PAIN 08:40
PROVIDERS: ATTEND Nurse Practitioner Family
DX: G89.29 Other chronic pain (principal); M51.26 Other intervertebral disc displacement, lumbar region; M54.16 Radiculopathy, lumbar region; M53.3 Sacrococcygeal disorders, not elsewhere classified; J45.909 Unspecified asthma, uncomplicated; A60.09 Herpesviral infection of other urogenital tract; Z88.0 Allergy status to penicillin; Z88.8 Allergy status to other drugs, medicaments and biological substances

== ENCOUNTER 2016-09-03 12:31 | Outpatient (RCR) | payer MEDICAID, OTHER, SELFPAY ==
[~2016-09-03 12:31] MED LIST changes: +MOBI4TAB PO; -MOBI7.5T10 PO; +PERC5TAB12 PO; -PERC5TAB6 PO; -PROA1AER INH; +PROAAER10 INH
[2017-02-11] MEDS ORDERED: IBUP-1022 PO (09:31)
[2017-02-11] MEDS ORDERED: VALT500T PO (09:31)
[2017-02-11] MEDS ORDERED: ARNU1INH3 IN (09:31)
[2017-02-11] MEDS ORDERED: ACET30TAB PO (09:51)
[2017-02-11] MEDS ORDERED: CLEO300C2 PO (09:51)
[2017-02-11] MEDS ORDERED: VALA1TAB2 PO (09:51)
[2017-02-11] MEDS ORDERED: GABA-282 PO (09:51)
== END 2016-09-04 ==
LOC: M PT 12:31
PROVIDERS: ATTEND Nurse Practitioner Adult Health
DX: Z51.89 Encounter for other specified aftercare (principal); M54.5 Low back pain

== ENCOUNTER 2016-10-02 13:45 | Outpatient (RCR) | payer MEDICAID ==
[2017-02-11] MEDS ORDERED: VALT500T PO (09:31)
[2017-02-11] MEDS ORDERED: IBUP-1022 PO (09:31)
[2017-02-11] MEDS ORDERED: ARNU1INH3 IN (09:31)
[2017-02-11] MEDS ORDERED: CLEO300C2 PO (09:51)
[2017-02-11] MEDS ORDERED: GABA-282 PO (09:51)
[2017-02-11] MEDS ORDERED: VALA1TAB2 PO (09:51)
[2017-02-11] MEDS ORDERED: ACET30TAB PO (09:51)
== END 2016-10-04 ==
LOC: M PT 13:45
PROVIDERS: ATTEND Nurse Practitioner Adult Health
DX: Z51.89 Encounter for other specified aftercare (principal); S30.0XXA Contusion of lower back and pelvis, initial encounter; X58.XXXA Exposure to other specified factors, initial encounter; Y92.89 Other specified places as the place of occurrence of the external cause; Y93.89 Activity, other specified; Y99.8 Other external cause status

== ENCOUNTER → 2016-10-03 | Outpatient (CLI) | payer MEDICAID, OTHER ==
[~2016-10-03] MED LIST changes: +ACET30TAB PO; +ARNU1INH3 IN; +CLEO300C2 PO; +GABA-282 PO; +IBUP-1022 PO; +ISOVUE-M 300 61% 15ML VIAL (Q9967) As Ordered ONE; +LIDOCAINE 1% SDV INJ 30 ML VIAL As Ordered ONE; +VALA1TAB2 PO; +diazePAM 5 MG TAB As Ordered ONE; +methylPREDNISolone SUSP 40 MG/ML (DEPO-medrol) VIAL (J1030) As Ordered ONE; +oxyCODONE 5MG TAB As Ordered ONE
--- NOTE | 2016-10-03 13:37 | REP ---
PARTIAL LUMBAR SPINE SERIES: Two views. HISTORY: Back pain. 17 seconds of fluoroscopy time is reported. FINDINGS: A sequence of two last image hold fluoro spot images of the lumbosacral junction document needle position and contrast injection associated with lumbar epidural injection procedure. Signed by Jose David Guadalupe MD 10/03/2016 03:34 P
--- NOTE | 2016-10-08 23:23 | ECWPNPC ---
PATIENT NAME: CEDRICK QUARLES : 1990 GENDER: FEMALE VISIT DATE: 10/03/2016 DISCHARGE DATE: 10/03/16 1203 VISIT LOCKED DATE TIME: PHYSICIAN: JOYCE SANCHEZ RESOURCE: JOYCE SANCHEZ REASON FOR APPOINTMENT 1. SIJ HISTORY OF PRESENT ILLNESS HISTORY OF PRESENT ILLNESS: PAIN THE PATIENT DESCRIBES THE PAIN... FALL RISK SCREENING: SCREENING :NO FALLS IN THE PAST YEAR CURRENT MEDICATIONS TAKING VENTOLIN HFA 108 (90 BASE) MCG/ACT AEROSOL SOLUTION 2 PUFFS NEEDED INHALATION EVERY 4 HRS, NOTES: 10/02/16 2300 TAKING ARNUITY ELLIPTA 200 MCG/ACT AEROSOL POWDER BREATH ACTIVATED 1 PUFF INHALATION ONCE A DAY, NOTES: 10/02/16 2300 TAKING FLUTICASONE FUROATE 200 MCG/ACT AEROSOL POWDER BREATH ACTIVATED 1 PUFF INHALATION ONCE A DAY PRN, NOTES: FEW MONTHS AGO TAKING IBUPROFEN 800 MG TABLET 1 TABLET WITH FOOD OR MILK ORALLY THREE TIMES DAILY NEEDED, NOTES: 09/30/16 1200 TAKING TYLENOL EXTRA STRENGTH 500 MG TABLET 2 TABLETS NEEDED ORALLY EVERY 6 HRS, NOTES: LAST WEEK MEDICATION LIST REVIEWED AND RECONCILED WITH THE PATIENT PAST MEDICAL HISTORY BACK AND NECK PAIN VAGINAL HERPIES ASTHMA ALLERGIES CEFZIL: RASH: ALLERGY SUPRAX: RASH: ALLERGY AMOXICILLIN: RASH: ALLERGY PEDIZOLE: RASH: ALLERGY SURGICAL HISTORY APPENDECTOMY 2004 HOSPITALIZATION/MAJOR DIAGNOSTIC PROCEDURE PNEUMONIA-SEVERAL TIMES CHILD APPENDECTOMY 2004 REVIEW OF SYSTEMS REVIEWED BY: PROVIDER: . CONSTITUTIONAL: ANY CHANGE IN YOUR MEDICAL CONDITION? NO . CHILLS NO . FEVER NO . INFECTION: DO YOU HAVE NEW INFECTIONS? NO . DO YOU HAVE HISTORY OF MRSA? NO . MUSCULOSKELETAL: ANY NEW PATTERNS OF PAIN OR NUMBNESS? NO . GASTROENTEROLOGY: ANY NEW CHANGE IN BOWEL CONTROL? NO . GENITOURINARY: ANY NEW CHANGE IN BLADDER CONTROL? NO . IS THERE A CHANCE YOU COULD BE ? NO . HEMATOLOGY/LYMPH: DO YOU TAKE ANY BLOOD THINNERS? (FOR EXAMPLE- COUMADIN, PLAVIX, AGGRENOX, PLATEL, PRADAXA, OR XARELTO) NO . WHEN WAS YOUR LAST DOSE? DATE: TIME: . NEUROLOGY: HAVE YOU FALLEN IN THE PAST 6 MONTHS? YES, FELL ON ICE . ANY NEW EXTREMITY NUMBNESS OR WEAKNESS? NO . CARDIOLOGY: DO YOU HAVE A PACEMAKER OR DEFIBRILLATOR? NO . RESPIRATORY: HAVE YOU BEEN SICK IN THE PAST WEEK? NO . FEVER NO . FLU LIKE SYMPTOMS? NO . COUGH NO . INTEGUMENTARY: DO YOU HAVE ANY RASHES OR OPEN SORES? NO . ALLERGIC/IMMUNO: ARE YOU ALLERGIC TO SHELLFISH OR IV DYE? NO . ANY NEW ALLERGIES? NO . PSYCHIATRIC: DO YOU HAVE THOUGHTS OF HURTING YOURSELF OR SOMEONE ELSE? NO . ARE YOU ABUSED, NEGLECTED, OR IN AN UNSAFE ENVIRONMENT? NO . ENDOCRINOLOGY: ARE YOU DIABETIC? NO . OTHER: DO YOU NEED ANY PRESCRIPTIONS? NO . IF YES, PLEASE LIST: ____ . ANY NEW PROBLEMS WITH YOUR MEDICATIONS? NO . WHEN DID YOU LAST EAT? 10/02/162299 . WHEN DID YOU LAST DRINK? 10/02/162299 . WHAT DID YOU LAST DRINK? COKE . NAME OF PERSON DRIVING YOU HOME? JULY . DO YOU HAVE ANY OTHER QUESTIONS OR CONCERNS NO . VITAL SIGNS WT 266.2 LBS, HT 67", BMI 41.69 INDEX, BP 120/76 MM HG, HR 93 /MIN, RR 16 /MIN, TEMP 96.5 F, OXYGEN SAT % 98%, NA INITIALS TL 1034. ASSESSMENTS INTERVERTEBRAL DISC DISORDERS WITH RADICULOPATHY, LUMBOSACRAL REGION - M51.17 (PRIMARY) PROCEDURES PRE PROCEDURE DIAGNOSIS LUMBOSACRAL DISC DISORDER WITH RADICULOPATHY, LUMBOSACRAL RADICULOPATHY POST PROCEDURE DIAGNOSIS LUMBOSACRAL DISC DISORDER WITH RADICULOPATHY , LUMBOSACRAL RADICULOPATHY PROCEDURE L5-S1 LUMBAR EPIDURAL STEROID INJECTION UNDER FLUOROSCOPIC GUIDANCE SURGEON DR. JOYCE SANCHEZ CHIEF OF FIELD OPERATIONS NONE ANESTHESIA LOCAL PRE PROCEDURE NOTE THE PATIENT HAS A HISTORY OF CHRONIC LOW BACK PAIN. I EVALUATE THE PATIENT AND REVIEWED THE CHART. I WENT OVER THE RISKS, ALTERNATIVES, AND BENEFITS ASSOCIATED WITH THIS PROCEDURE. THE PATIENT WOULD LIKE TO PROCEED AND GIVE CONSENT TO PERFORMED THE PROCEDURE. THE PATIENT DENIES UNEXPLAINABLE WEIGHT LOSS, FEVER, CHILLS, OR NEW CHANGES IN URINARY OR BOWEL CONTROL. DESCRIPTION OF PROCEDURE THE PATIENT WAS BROUGHT TO THE PROCEDURE ROOM AND PLACED IN THE PRONE POSITION. THE LUMBOSACRAL AREA WAS CLEANED WITH BETADINE SOLUTION AND DRAPED ASEPTICALLY. THE PROCEDURE WAS DONE UNDER STERILE CONDITIONS. I CHECKED LATERALITY AND THE LEVEL WHERE THE PROCEDURE WAS GOING TO BE PERFORMED WITH THE PATIENT AND THE SUPPORTING STAFF AT THE MOMENT OF THE TIME OUT IN THE PROCEDURE ROOM. UNDER FLUOROSCOPIC GUIDANCE, THE TARGET POINT WAS SELECTED AT THE INTERLAMINAR LEVEL OF L5-S1. LIDOCAINE WAS USED TO NUMB THE SKIN AND THE SUBCUTANEOUS TISSUE BELOW IT. EPIDURAL TUOHY NEEDLE, 17-GAUGE, WAS ADVANCED UNDER FLUOROSCOPIC GUIDANCE AND FOLLOWING PATIENT FEEDBACK UNTIL THE EPIDURAL SPACE WAS REACHED, 7 CM DEEP INTO THE SKIN BY THE LOSS OF RESISTANCE TECHNIQUE. ISOVUE M DYE 30%, 0.25 ML, WAS INJECTED SHOWING ADEQUATE SPREAD OF THE DYE. THEN, A SOLUTION OF 3 ML OF NORMAL SALINE WITH DEPO-MEDROL 60 MG WAS INJECTED SLOWLY FOLLOWING PATIENT FEEDBACK. THERE WAS NO EVIDENCE OF BLOOD, PARESTHESIA OR CEREBROSPINAL FLUID DURING THE PROCEDURE. THE PATIENT WAS SENT TO THE RECOVERY ROOM. THE PATIENT WAS MOVING THE EXTREMITIES AND DOING WELL. THERE WAS NO COMPLICATION DURING THE PROCEDURE. FLUOROSCOPY TIME WAS 17 SECONDS. POST PROCEDURE NOTE THE PATIENT WILL BE SEEN IN A FOLLOW UP IN THE NEXT FEW WEEKS. INSTRUCTIONS WERE GIVEN, QUESTIONS WERE ANSWERED, AND THE PATIENT EXPRESSED UNDERSTANDING AND AGREES WITH THE PLAN. I, NICKY MESSER, DOCUMENTED THE ABOVE INFORMATION ACTING A SCRIBE FOR DR. SANCHEZ. I HAVE REVIEWED THE ABOVE DOCUMENT, WRITTEN BY NICKY MESSER SCRIBE AND I VERIFY THAT IT IS ACCURATE DIAGNOSTIC IMAGING [facility] FLUORO GUIDE SPINE INJECTION (PAIN)[id number] PROCEDURE CODES 50963 LUMBAR/SACRAL W/ IMAGING 6045F RADXPS IN END [id number] PXD DISPOSITION & COMMUNICATION FOLLOW UP 3 WEEKS ELECTRONICALLY SIGNED BY JOYCE SANCHEZ MD ON 10/08/2016 AT 09:54 PM EDT DISCLAIMER : THIS IS A VISIT SUMMARY EXTRACTED FROM THE [employer] CHART. IT IS NOT A COPY OF THE [employer] PROGRESS NOTE. MTDD
== END | disposition home or self-care (01) ==
LOC: M PAIN 10:20
PROVIDERS: ATTEND Anesthesiology
DX: G89.29 Other chronic pain (principal); M51.17 Intervertebral disc disorders with radiculopathy, lumbosacral region; J45.909 Unspecified asthma, uncomplicated; A60.09 Herpesviral infection of other urogenital tract; Z79.899 Other long term (current) drug therapy; Z88.0 Allergy status to penicillin; Z88.8 Allergy status to other drugs, medicaments and biological substances

== ENCOUNTER → 2016-10-03 | Outpatient (CLI) | payer MEDICAID, OTHER ==
[~2016-10-03] MED LIST changes: -ISOVUE-M 300 61% 15ML VIAL (Q9967) As Ordered ONE; -LIDOCAINE 1% SDV INJ 30 ML VIAL As Ordered ONE; -diazePAM 5 MG TAB As Ordered ONE; -methylPREDNISolone SUSP 40 MG/ML (DEPO-medrol) VIAL (J1030) As Ordered ONE; -oxyCODONE 5MG TAB As Ordered ONE
--- NOTE | 2016-10-08 23:02 | ECWPNPC ---
PATIENT NAME: CEDRICK QUARLES : 1990 GENDER: FEMALE VISIT DATE: 10/03/2016 DISCHARGE DATE: 10/03/16 1343 VISIT LOCKED DATE TIME: PHYSICIAN: JOYCE SANCHEZ RESOURCE: JOYCE SANCHEZ REASON FOR APPOINTMENT 1. LOW BACK PAIN HISTORY OF PRESENT ILLNESS HISTORY OF PRESENT ILLNESS: PAIN THE PATIENT DESCRIBES THE PAIN... 26 YEAR OLD FEMALE PATIENT WITH HISTORY OF CHRONIC LOW BACK PAIN. PATIENT DESCRIBES THE PAIN ACHING, STANDING, SITTING AND HAVING IT ALL THE TIME WITH A PAIN SCORE OF 7/10. PATIENT STATES THAT SHE HAS PAIN THAT RADIATES DOWN THE LEGS. MRS. QUARLES REPORTS THAT SHE HAS HAD A LUMBAR EPIDURAL IN THE PAST WHERE THE PAIN INCREASED FOR A WEEK BUT THEN DECREASED SIGNIFICANTLY AFTER. PATIENT IS CURRENTLY USING IBUPROFEN FOR PAIN MANAGEMENT. PATIENT DENIES UNEXPLAINABLE WEIGHT LOSS, FEVER, CHILLS, NEW CHANGES ON HER URINARY OR BOWEL CONTROL. FALL RISK SCREENING: SCREENING :NO FALLS IN THE PAST YEAR CURRENT MEDICATIONS TAKING VENTOLIN HFA 108 (90 BASE) MCG/ACT AEROSOL SOLUTION 2 PUFFS NEEDED INHALATION EVERY 4 HRS, NOTES: 10/02/16 2300 TAKING ARNUITY ELLIPTA 200 MCG/ACT AEROSOL POWDER BREATH ACTIVATED 1 PUFF INHALATION ONCE A DAY, NOTES: 10/02/16 2300 TAKING FLUTICASONE FUROATE 200 MCG/ACT AEROSOL POWDER BREATH ACTIVATED 1 PUFF INHALATION ONCE A DAY PRN, NOTES: FEW MONTHS AGO TAKING IBUPROFEN 800 MG TABLET 1 TABLET WITH FOOD OR MILK ORALLY THREE TIMES DAILY NEEDED, NOTES: 09/30/16 1200 TAKING TYLENOL EXTRA STRENGTH 500 MG TABLET 2 TABLETS NEEDED ORALLY EVERY 6 HRS, NOTES: LAST WEEK MEDICATION LIST REVIEWED AND RECONCILED WITH THE PATIENT PAST MEDICAL HISTORY BACK AND NECK PAIN VAGINAL HERPIES ASTHMA ALLERGIES CEFZIL: RASH: ALLERGY SUPRAX: RASH: ALLERGY AMOXICILLIN: RASH: ALLERGY PEDIZOLE: RASH: ALLERGY REVIEW OF SYSTEMS REVIEWED BY: PROVIDER: . CONSTITUTIONAL: ANY CHANGE IN YOUR MEDICAL CONDITION? NO . CHILLS NO . FEVER NO . INFECTION: DO YOU HAVE NEW INFECTIONS? NO . DO YOU HAVE HISTORY OF MRSA? NO . MUSCULOSKELETAL: ANY NEW PATTERNS OF PAIN OR NUMBNESS? NO . GASTROENTEROLOGY: ANY NEW CHANGE IN BOWEL CONTROL? NO . GENITOURINARY: ANY NEW CHANGE IN BLADDER CONTROL? NO . IS THERE A CHANCE YOU COULD BE ? NO . HEMATOLOGY/LYMPH: DO YOU TAKE ANY BLOOD THINNERS? (FOR EXAMPLE- COUMADIN, PLAVIX, AGGRENOX, PLATEL, PRADAXA, OR XARELTO) NO . WHEN WAS YOUR LAST DOSE? DATE: TIME: . NEUROLOGY: HAVE YOU FALLEN IN THE PAST 6 MONTHS? YES . ANY NEW EXTREMITY NUMBNESS OR WEAKNESS? NO . CARDIOLOGY: DO YOU HAVE A PACEMAKER OR DEFIBRILLATOR? NO . RESPIRATORY: HAVE YOU BEEN SICK IN THE PAST WEEK? NO . FEVER NO . FLU LIKE SYMPTOMS? NO . COUGH NO . INTEGUMENTARY: DO YOU HAVE ANY RASHES OR OPEN SORES? NO . ALLERGIC/IMMUNO: ARE YOU ALLERGIC TO SHELLFISH OR IV DYE? NO . ANY NEW ALLERGIES? NO . PSYCHIATRIC: DO YOU HAVE THOUGHTS OF HURTING YOURSELF OR SOMEONE ELSE? NO . ARE YOU ABUSED, NEGLECTED, OR IN AN UNSAFE ENVIRONMENT? NO . ENDOCRINOLOGY: ARE YOU DIABETIC? NO . OTHER: DO YOU NEED ANY PRESCRIPTIONS? NO . IF YES, PLEASE LIST: ____ . ANY NEW PROBLEMS WITH YOUR MEDICATIONS? NO . WHEN DID YOU LAST EAT? ____ . WHEN DID YOU LAST DRINK? ____ . WHAT DID YOU LAST DRINK? ____ . NAME OF PERSON DRIVING YOU HOME? ____ . DO YOU HAVE ANY OTHER QUESTIONS OR CONCERNS NO . VITAL SIGNS WT 262.2 LBS, HT 67", BMI 41.06 INDEX, BP 120/76 MM HG, HR 93 /MIN, RR 16 /MIN, TEMP 97.0 F, OXYGEN SAT % 98%, NA INITIALS TL 1220. EXAMINATION : PATIENT IS ALERT O X 3 AND COOPERATIVE. TENDERNESS IN THE LOWER BACK AND THE PARASPINAL MUSCLE GROUP. MRI DONE ON 05/31/16 OF THE LUMBAR SPINE SHOWS A DISC PROTRUSION L4-L5. ASSESSMENTS INTERVERTEBRAL DISC DISORDERS WITH RADICULOPATHY, LUMBAR REGION - M51.16 (PRIMARY) TREATMENT INTERVERTEBRAL DISC DISORDERS WITH RADICULOPATHY, LUMBAR REGION START HYDROCODONE-ACETAMINOPHEN TABLET, 5-325 MG, 1 TABLET NEEDED, ORALLY, DAILY MDD1, 7 DAY(S), 7, REFILLS 0 NOTES: WE DISCUSSED SEVERAL ISSUES WITH MRS. QUARLES'S PAIN MANAGEMENT CASE. AT THIS TIME THE PATIENT REPORTS HAVING GOOD RELIEF FROM THE LUMBAR EPIDURAL BUT HAD A WEEK OF SEVERE PAIN IMMEDIATELY AFTER THE INJECTION. I WOULD LIKE TO PROCEED WITH A LUMBAR EPIDURAL DUE TO THE DISC PROTRUSION AND LEG PAIN. PATIENT WILL RECEIVE A WEEK OF HYDROCODONE FOR THE POST PROCEDURE PAIN. WE REVIEWED THE ISTOP. PATIENT DENIES ABUSE OF ANY MEDICATION, DENIES USE OF ILLEGAL SUBSTANCES, AND STATES SHE IS ONLY USING THE MEDICATION FOR PAIN MANAGEMENT. MRS. QUARLES WILL RETURN IN 3 WEEKS TO DISCUSS HOW THE INJECTION WENT WITH TRUDY LOGAN. INSTRUCTIONS WERE GIVEN, QUESTIONS WERE ANSWERED, PATIENT REPORTS UNDERSTANDING AND AGREES WITH THE PLAN. I, LITA FARRELL, DOCUMENTED THE ABOVE INFORMATION ACTING A SCRIBE FOR DR. SANCHEZ. I HAVE REVIEWED THE ABOVE DOCUMENT, WRITTEN BY LITA GUERREROIBGiorgi AND I VERIFY THAT IT IS ACCURATE. PROCEDURE CODES FA211 ESTABILISHED PATIENT [facility] FACILITY CHARGE G8427 DOC MEDS VERIFIED W/PT OR RE G8730 PAIN ASSESS POS TOOL F/U PLAN DOC DISPOSITION & COMMUNICATION FOLLOW UP 3 WEEKS ELECTRONICALLY SIGNED BY JOYCE SANCHEZ MD ON 10/08/2016 AT 09:37 PM EDT DISCLAIMER : THIS IS A VISIT SUMMARY EXTRACTED FROM THE [employer] CHART. IT IS NOT A COPY OF THE [employer] PROGRESS NOTE. MARIA EUGENIA
== END | disposition home or self-care (01) ==
LOC: M PAIN 12:00
PROVIDERS: ATTEND Anesthesiology
DX: G89.29 Other chronic pain (principal); M51.16 Intervertebral disc disorders with radiculopathy, lumbar region; J45.909 Unspecified asthma, uncomplicated; A60.09 Herpesviral infection of other urogenital tract; Z79.899 Other long term (current) drug therapy; Z88.0 Allergy status to penicillin; Z88.8 Allergy status to other drugs, medicaments and biological substances

== ENCOUNTER → 2016-10-18 | Outpatient (CLI) | payer OTHER ==
--- NOTE | 2016-11-07 00:41 | ECWPNPC ---
PATIENT NAME: CEDRICK QUARLES : 1990 GENDER: FEMALE VISIT DATE: 10/18/2016 DISCHARGE DATE: 10/18/16 1531 VISIT LOCKED DATE TIME: PHYSICIAN: TRUDY LOUIS RESOURCE: TRUDY LOUIS REASON FOR APPOINTMENT 1. POST LESI HISTORY OF PRESENT ILLNESS HISTORY OF PRESENT ILLNESS: PAIN THE PATIENT DESCRIBES THE PAIN... HERE FOR POST PROCEDURE F/U.HAD LESI ON 10-03-16.REPORTING >50% IMPROVEMENT IN LOW BACK PAIN AND RESOLUTION OF RIGHT LEG PAIN.RATING PAIN VAS 4/10.DESCRIBES PAIN INTERMITTENT SHARP AND ACHING PAIN. FALL RISK SCREENING: SCREENING :NO FALLS IN THE PAST YEAR CURRENT MEDICATIONS TAKING VENTOLIN HFA 108 (90 BASE) MCG/ACT AEROSOL SOLUTION 2 PUFFS NEEDED INHALATION EVERY 4 HRS, NOTES: 10/02/16 2300 TAKING ARNUITY ELLIPTA 200 MCG/ACT AEROSOL POWDER BREATH ACTIVATED 1 PUFF INHALATION ONCE A DAY, NOTES: 10/02/16 2300 TAKING FLUTICASONE FUROATE 200 MCG/ACT AEROSOL POWDER BREATH ACTIVATED 1 PUFF INHALATION ONCE A DAY PRN, NOTES: FEW MONTHS AGO TAKING IBUPROFEN 800 MG TABLET 1 TABLET WITH FOOD OR MILK ORALLY THREE TIMES DAILY NEEDED, NOTES: 09/30/16 1200 TAKING TYLENOL EXTRA STRENGTH 500 MG TABLET 2 TABLETS NEEDED ORALLY EVERY 6 HRS, NOTES: LAST WEEK NOT-TAKING HYDROCODONE-ACETAMINOPHEN 5-325 MG TABLET 1 TABLET NEEDED ORALLY DAILY MDD1 MEDICATION LIST REVIEWED AND RECONCILED WITH THE PATIENT PAST MEDICAL HISTORY BACK AND NECK PAIN VAGINAL HERPIES ASTHMA ALLERGIES CEFZIL: RASH: ALLERGY SUPRAX: RASH: ALLERGY AMOXICILLIN: RASH: ALLERGY PEDIZOLE: RASH: ALLERGY SURGICAL HISTORY APPENDECTOMY 2004 HOSPITALIZATION/MAJOR DIAGNOSTIC PROCEDURE PNEUMONIA-SEVERAL TIMES CHILD APPENDECTOMY 2004 REVIEW OF SYSTEMS REVIEWED BY: PROVIDER: TRUDY LOGAN . CONSTITUTIONAL: ANY CHANGE IN YOUR MEDICAL CONDITION? NO . CHILLS NO . FEVER NO . INFECTION: DO YOU HAVE NEW INFECTIONS? NO . DO YOU HAVE HISTORY OF MRSA? NO . MUSCULOSKELETAL: ANY NEW PATTERNS OF PAIN OR NUMBNESS? YES, LEFT LEG PAIN. PT STATES LESI DOEN 10/03/16. PRE PROCEDURE PAIN WAS 6/10 AND PAIN RADIATED DOWN RIGHT LEG. POST PROCEDURE PAIN 0/10, SLOWLY CREEPING TO 4/10 WITH PAIN RADIATING DOWN LEFT LEG INSTEAD OF RIGHT. . GASTROENTEROLOGY: ANY NEW CHANGE IN BOWEL CONTROL? NO . GENITOURINARY: ANY NEW CHANGE IN BLADDER CONTROL? NO . IS THERE A CHANCE YOU COULD BE ? NO . HEMATOLOGY/LYMPH: DO YOU TAKE ANY BLOOD THINNERS? (FOR EXAMPLE- COUMADIN, PLAVIX, AGGRENOX, PLATEL, PRADAXA, OR XARELTO) NO . WHEN WAS YOUR LAST DOSE? DATE: TIME: . NEUROLOGY: HAVE YOU FALLEN IN THE PAST 6 MONTHS? YES, ON ICE . ANY NEW EXTREMITY NUMBNESS OR WEAKNESS? NO . CARDIOLOGY: DO YOU HAVE A PACEMAKER OR DEFIBRILLATOR? NO . RESPIRATORY: HAVE YOU BEEN SICK IN THE PAST WEEK? NO . FEVER NO . FLU LIKE SYMPTOMS? NO . COUGH NO . INTEGUMENTARY: DO YOU HAVE ANY RASHES OR OPEN SORES? NO . ALLERGIC/IMMUNO: ARE YOU ALLERGIC TO SHELLFISH OR IV DYE? NO . ANY NEW ALLERGIES? NO . PSYCHIATRIC: DO YOU HAVE THOUGHTS OF HURTING YOURSELF OR SOMEONE ELSE? NO . ARE YOU ABUSED, NEGLECTED, OR IN AN UNSAFE ENVIRONMENT? NO . ENDOCRINOLOGY: ARE YOU DIABETIC? NO . OTHER: DO YOU NEED ANY PRESCRIPTIONS? NO . IF YES, PLEASE LIST: ____ . ANY NEW PROBLEMS WITH YOUR MEDICATIONS? NO . WHEN DID YOU LAST EAT? ____ . WHEN DID YOU LAST DRINK? ____ . WHAT DID YOU LAST DRINK? ____ . NAME OF PERSON DRIVING YOU HOME? ____ . DO YOU HAVE ANY OTHER QUESTIONS OR CONCERNS NO . VITAL SIGNS WT 265.6 LBS, HT 67", BMI 41.59 INDEX, BP 134/69 MM HG, HR 97 /MIN, RR 16 /MIN, TEMP 97.5 F, OXYGEN SAT % 99%, SAFE IN ENV? (Y/N) Y, NA INITIALS TL 1506, REVIEWED BY: EM. EXAMINATION GENERAL EXAMINATION: GENERAL APPEARANCE:NO ACUTE DISTRESS. HEENT:PUPILS EQUAL, ROUND, REACTIVE TO LIGHT (PERRL), CLEAR CONJUCTIVA, NORMOCEPHALIC. LUNGS:LUNG CHINCHILLA ARE CLEAR TO AUSCULTATION BILATERALLY. GOOD MOVEMENT OF AIR. HEART:HEART SOUNDS ARE NORMAL, RHYTHM IS REGULAR, NO MURMUR. BACK:NO TENDERNESS, UNREMARKABLE. DIAGNOSTIC DATA-MRI L/S [id number]-REVIEWED. ASSESSMENTS PROTRUSION OF LUMBAR INTERVERTEBRAL DISC - M51.26 (PRIMARY) LUMBAR RADICULOPATHY - M54.16 TREATMENT PROTRUSION OF LUMBAR INTERVERTEBRAL DISC NOTES: PATIENT WAS ADVISED TO START A WALKING PROGRAM TO STRENGTHEN LUMBAR PARASPINAL MUSCLES AND IMPROVE MOBILITY. THEY WERE ADVISED THAT THIS WILL IMPROVE WEIGHT LOSS AND ALSO DEPRESSION/FIBROMYALGIA SYMPTOMS. ADVISED TO WALK 10 MINUTES EVERY OTHER DAY ON A FLAT SURFACE. EMPHASIZED THE IMPORTANCE OF DOING THIS CONSISTANTLY AND NOT SPORATICALLY TO AVOID INJURY. STRONG ADVISED NOT TO DO MORE THAN 10 MINUTES EVERY OTHER DAY FOR THE FIRST 4 WEEKS. PROCEDURE CODES FA211 ESTABILISHED PATIENT [facility] CHARGE DISPOSITION & COMMUNICATION FOLLOW UP 2 MONTHS ELECTRONICALLY SIGNED BY DESMOND BROWN ON 11/06/2016 AT 07:14 PM EDT DISCLAIMER : THIS IS A VISIT SUMMARY EXTRACTED FROM THE [employer] CHART. IT IS NOT A COPY OF THE [employer] PROGRESS NOTE. MARIA EUGENIA
== END | disposition home or self-care (01) ==
LOC: M PAIN 15:00
PROVIDERS: ATTEND Nurse Practitioner Family
DX: G89.29 Other chronic pain (principal); M51.26 Other intervertebral disc displacement, lumbar region; M54.16 Radiculopathy, lumbar region; J45.909 Unspecified asthma, uncomplicated; A60.09 Herpesviral infection of other urogenital tract; Z79.899 Other long term (current) drug therapy; Z79.51 Long term (current) use of inhaled steroids; Z88.0 Allergy status to penicillin; Z88.8 Allergy status to other drugs, medicaments and biological substances

== ENCOUNTER 2016-10-29 15:15 | Outpatient (RCR) | payer OTHER ==
[~2016-10-29 15:15] MED LIST changes: -ACET30TAB PO; -ARNU1INH3 IN; -CLEO300C2 PO; -GABA-282 PO; -IBUP-1022 PO; -VALA1TAB2 PO
[2017-02-11] MEDS ORDERED: ARNU1INH3 IN (09:31)
[2017-02-11] MEDS ORDERED: IBUP-1022 PO (09:31)
[2017-02-11] MEDS ORDERED: VALT500T PO (09:31)
[2017-02-11] MEDS ORDERED: GABA-282 PO (09:51)
[2017-02-11] MEDS ORDERED: ACET30TAB PO (09:51)
[2017-02-11] MEDS ORDERED: VALA1TAB2 PO (09:51)
[2017-02-11] MEDS ORDERED: CLEO300C2 PO (09:51)
== END 2016-11-04 ==
LOC: M PT 15:15
PROVIDERS: ATTEND Nurse Practitioner Adult Health
DX: Z51.89 Encounter for other specified aftercare (principal); S30.0XXD Contusion of lower back and pelvis, subsequent encounter; S20.221D Contusion of right back wall of thorax, subsequent encounter; X58.XXXA Exposure to other specified factors, initial encounter; Y92.89 Other specified places as the place of occurrence of the external cause; Y99.8 Other external cause status

== ENCOUNTER → 2017-02-07 | Outpatient (CLI) | payer OTHER ==
[~2017-02-07] MED LIST changes: +ACET30TAB PO; +ARNU1INH3 IN; +CLEO300C2 PO; +GABA-282 PO; +IBUP-1022 PO; +VALA1TAB2 PO
--- NOTE | 2017-02-25 02:10 | ECWPNPC ---
PATIENT NAME: CEDRICK QUARLES : 1990 GENDER: FEMALE VISIT DATE: 02/07/2017 DISCHARGE DATE: 02/07/17 1040 VISIT LOCKED DATE TIME: PHYSICIAN: TRUDY LOUIS RESOURCE: TRUDY LOUIS REASON FOR APPOINTMENT 1. BACK HISTORY OF PRESENT ILLNESS HISTORY OF PRESENT ILLNESS: HERE FOR F/U OF CHRONIC LOW BACK PAIN WITH LEFT LEG RADICULAR SYMPTOMS.PAIN HAS RETURNED AND HAS BEEN WORSE LATELY.SHE IS HAVING TO DO ALOT OF WORK AROUND HOUSE.RATING PAIN VAS 6/10.DESCRIBES PAIN CONSTANT,BURNING AND ACHING.DISCUSSED MEDICATION AND TREATMENT OPTIONS. PAIN THE PATIENT DESCRIBES THE PAIN... FALL RISK SCREENING: SCREENING :NO FALLS IN THE PAST YEAR CURRENT MEDICATIONS TAKING VENTOLIN HFA 108 (90 BASE) MCG/ACT AEROSOL SOLUTION 2 PUFFS NEEDED INHALATION EVERY 4 HRS TAKING ARNUITY ELLIPTA 200 MCG/ACT AEROSOL POWDER BREATH ACTIVATED 1 PUFF INHALATION ONCE A DAY TAKING FLUTICASONE FUROATE 200 MCG/ACT AEROSOL POWDER BREATH ACTIVATED 1 PUFF INHALATION ONCE A DAY PRN TAKING IBUPROFEN 800 MG TABLET 1 TABLET WITH FOOD OR MILK ORALLY THREE TIMES DAILY NEEDED TAKING TYLENOL EXTRA STRENGTH 500 MG TABLET 2 TABLETS NEEDED ORALLY EVERY 6 HRS TAKING VALTREX 500 MG TABLET 2 TABLETS ORALLY EVERY 12 HRS UNKNOWN HYDROCODONE-ACETAMINOPHEN 5-325 MG TABLET 1 TABLET NEEDED ORALLY DAILY MDD1 MEDICATION LIST REVIEWED AND RECONCILED WITH THE PATIENT PAST MEDICAL HISTORY BACK AND NECK PAIN VAGINAL HERPIES ASTHMA ALLERGIES CEFZIL: RASH: ALLERGY SUPRAX: RASH: ALLERGY AMOXICILLIN: RASH: ALLERGY PEDIZOLE: RASH: ALLERGY SURGICAL HISTORY APPENDECTOMY 2004 SOCIAL HISTORY GENERAL: TOBACCO USE ARE YOU A:CURRENT SMOKER ARE YOU INTERESTED IN QUITTING?NOT READY TO QUIT COUNSELED THE PATIENT ON SMOKING EFFECTS, EDUCATION [id number]/28/2017 HOW MANY CIGARETTES A DAY DO YOU SMOKE?6-10 HOW SOON AFTER YOU WAKE UP DO YOU SMOKE YOUR FIRST CIGARETTE?31-60 MIN HOW OFTEN DO YOU SMOKE CIGARETTES?EVERY DAY PATIENT COUNSELED ON THE DANGERS OF TOBACCO USE AND URGED TO QUIT:02/07/2017 GAVE INFO ON THE NEXT NO SMOKING CLASS IN NOV ALCOHOL SCREENING DID YOU HAVE A DRINK CONTAINING ALCOHOL IN THE PAST YEAR?NO POINTS0 INTERPRETATIONNEGATIVE RECREATIONAL DRUG USE DRUG USE?YES HOW OFTEN AND HOW MUCH? MARIJUANA-- 1 Q NIGHT CAFFEINE CAFFEINE USE?YES HOW OFTEN AND HOW MUCH? 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 EXERCISE: NO REGULAR EXERCISE. MARITAL STATUS: . OTHERS AT HOME: SPOUSE, CHILDREN. PETS: NONE. DENOMINATIONAL [id number] MU-ISM LANGUAGE LANGUAGES SPOKEN:MALTESE EDUCATION LEVEL OF EDUCATION: GED LEARNING BARRIERS / SPECIAL NEEDS BARRIERS TO LEARNING?NO HEARING IMPAIRED?NO VISION IMPAIRED?YES :CORRECTIVE LENSES COGNITIVELY IMPAIRED?NO READINESS TO LEARN?YES LEARNING PREFERENCES?NO LEARNING CAPABILITIES PRESENT?YES EMOTIONAL BARRIERS?NO SPECIAL DEVICES?NO FURNITURE ASSEMBLY SUPERVISOR NEEDED?NO PAIN CLINIC PFS, CLERGY, PUBLIC HEALTH REFERRALS PFS REFERRAL NEEDED?NO CLERGY REFERRAL NEEDED?NO PUBLIC HEALTH REFERRAL NEEDED?NO ADVANCE DIRECTIVES HEALTH CARE PROXY?NO WOULD YOU LIKE MORE INFORMATION?NO DO YOU HAVE A DNR?NO WOULD YOU LIKE MORE INFORMATION?NO LIVING WILL?NO WOULD YOU LIKE MORE INFORMATION?NO POWER OF MANUFACTURING PROJECT ENGINEER?NO WOULD YOU LIKE MORE INFORMATION?NO HOSPITALIZATION/MAJOR DIAGNOSTIC PROCEDURE PNEUMONIA-SEVERAL TIMES CHILD APPENDECTOMY 2004 REVIEW OF SYSTEMS REVIEWED BY: PROVIDER: TRUDY LOGAN . CONSTITUTIONAL: ANY CHANGE IN YOUR MEDICAL CONDITION? FEELS THAT HER BACK HAS CHANGED SINCE OCTOBER AND SHE HAS TO DO ALL THE LABOR AROUND THE HOUSE . CHILLS NO . FEVER NO . INFECTION: DO YOU HAVE NEW INFECTIONS? NO . DO YOU HAVE HISTORY OF MRSA? NO . MUSCULOSKELETAL: ANY NEW PATTERNS OF PAIN OR NUMBNESS? YES, PAIN HAS MOVED INTO THE LEFT SIDE NOW WITH CONSTANT BURNING AND THROBBING . GASTROENTEROLOGY: ANY NEW CHANGE IN BOWEL CONTROL? NO . GENITOURINARY: ANY NEW CHANGE IN BLADDER CONTROL? NO . IS THERE A CHANCE YOU COULD BE ? NO . HEMATOLOGY/LYMPH: DO YOU TAKE ANY BLOOD THINNERS? (FOR EXAMPLE- COUMADIN, PLAVIX, AGGRENOX, PLATEL, PRADAXA, OR XARELTO) NO . WHEN WAS YOUR LAST DOSE? DATE: TIME: . NEUROLOGY: HAVE YOU FALLEN IN THE PAST 6 MONTHS? NO . ANY NEW EXTREMITY NUMBNESS OR WEAKNESS? NO . CARDIOLOGY: DO YOU HAVE A PACEMAKER OR DEFIBRILLATOR? NO . RESPIRATORY: HAVE YOU BEEN SICK IN THE PAST WEEK? NO . FEVER NO . FLU LIKE SYMPTOMS? NO . COUGH NO . INTEGUMENTARY: DO YOU HAVE ANY RASHES OR OPEN SORES? NO . ALLERGIC/IMMUNO: ARE YOU ALLERGIC TO SHELLFISH OR IV DYE? NO . ANY NEW ALLERGIES? NO . PSYCHIATRIC: DO YOU HAVE THOUGHTS OF HURTING YOURSELF OR SOMEONE ELSE? NO . ARE YOU ABUSED, NEGLECTED, OR IN AN UNSAFE ENVIRONMENT? NO . ENDOCRINOLOGY: ARE YOU DIABETIC? NO . OTHER: DO YOU NEED ANY PRESCRIPTIONS? NO . IF YES, PLEASE LIST: ____ . ANY NEW PROBLEMS WITH YOUR MEDICATIONS? NO . WHEN DID YOU LAST EAT? ____ . WHEN DID YOU LAST DRINK? ____ . WHAT DID YOU LAST DRINK? ____ . NAME OF PERSON DRIVING YOU HOME? ____ . DO YOU HAVE ANY OTHER QUESTIONS OR CONCERNS YES, WANTS SOMETHING TO MANAGE THE PAIN THRU THE DAY . VITAL SIGNS WT 270 LBS, HT 67", BMI 42.28 INDEX, BP 132/63 MM HG, HR 89 /MIN, RR 16 /MIN, TEMP 97.0 F, OXYGEN SAT % 98%, NA INITIALS TL 1003, REVIEWED BY: NL. EXAMINATION GENERAL EXAMINATION: GENERAL APPEARANCE:NO ACUTE DISTRESS. HEENT:PUPILS EQUAL, ROUND, REACTIVE TO LIGHT (PERRL), CLEAR CONJUCTIVA, NORMOCEPHALIC. LUNGS:LUNG CHINCHILLA ARE CLEAR TO AUSCULTATION BILATERALLY. GOOD MOVEMENT OF AIR. HEART:HEART SOUNDS ARE NORMAL, RHYTHM IS REGULAR, NO MURMUR. BACK:MULTIPLE AREAS OF TENDER SPOTS OVER PARASPINALS WITH WORSE AREA OVER L/S SPINE. DIAGNOSTIC DATA-MRI L/S [id number]-REVIEWED. ASSESSMENTS PROTRUSION OF LUMBAR INTERVERTEBRAL DISC - M51.26 (PRIMARY) LUMBAR RADICULOPATHY - M54.16 TREATMENT PROTRUSION OF LUMBAR INTERVERTEBRAL DISC START CYMBALTA CAPSULE DELAYED RELEASE PARTICLES, 30 MG, 1 CAPSULE, ORALLY, ONCE A DAY, 30 DAY(S), 30 CAPSULE, REFILLS 1 PROCEDURE CODES FA211 ESTABILISHED PATIENT [facility] CHARGE DISPOSITION & COMMUNICATION FOLLOW UP 6 WEEKS ELECTRONICALLY SIGNED BY DESMOND BROWN ON 02/24/2017 AT 12:29 PM EST DISCLAIMER : THIS IS A VISIT SUMMARY EXTRACTED FROM THE [employer] CHART. IT IS NOT A COPY OF THE [facility] PROGRESS NOTE. MARIA EUGENIA
== END ==
LOC: M PAIN 09:45
PROVIDERS: ATTEND Nurse Practitioner Family
DX: G89.29 Other chronic pain (principal); M51.26 Other intervertebral disc displacement, lumbar region; M54.16 Radiculopathy, lumbar region; J45.909 Unspecified asthma, uncomplicated; F17.210 Nicotine dependence, cigarettes, uncomplicated; Z88.1 Allergy status to other antibiotic agents; Z88.8 Allergy status to other drugs, medicaments and biological substances; Z79.899 Other long term (current) drug therapy

== ENCOUNTER → 2017-03-21 | Outpatient (REF) | payer OTHER | LOC: M LAB REF 17:26 | PROVIDERS: ATTEND Advanced Practice Midwife | DX: Z12.4 Encounter for screening for malignant neoplasm of cervix (principal) ==

== ENCOUNTER → 2017-04-11 | Outpatient (CLI) | payer OTHER | LOC: M PAIN 09:30 | DX: M51.26 Other intervertebral disc displacement, lumbar region (principal); M54.16 Radiculopathy, lumbar region; M53.3 Sacrococcygeal disorders, not elsewhere classified; G89.29 Other chronic pain; J45.909 Unspecified asthma, uncomplicated; F17.210 Nicotine dependence, cigarettes, uncomplicated; Z79.899 Other long term (current) drug therapy; Z88.0 Allergy status to penicillin; Z88.1 Allergy status to other antibiotic agents; Z88.8 Allergy status to other drugs, medicaments and biological substances | CPT/HCPCS: G0463 ==

== ENCOUNTER → 2017-06-05 | Outpatient (CLI) | payer OTHER ==
[~2017-06-05] MED LIST changes: -ACET30TAB PO; -ACET50TAOT PO; -ANUS2.5C2 TOP; -ARNU1INH3 IN; -BREO1INH INH; +BUPIVACAINE HCL 0.25% 30 ML VIAL As Ordered; -CLEO300C2 PO; -DIPH50CA PO; -DOCU10ELUD PO; -GABA-282 PO; -IBUP-1022 PO; -IBUP600T26 PO; +ISOVUE-M 300 61% 15ML VIAL (Q9967) As Ordered; +LIDOCAINE 1% SDV INJ 30 ML VIAL As Ordered; -MOBI4TAB PO; -MOM30SS PO; -MOTR200T44 PO; -PERC5TAB12 PO; -PRED20TA PO; -PROAAER10 INH; +TRIAMCINOLONE ACETONIDE SUSP 40 MG/ML VIAL (J3301) As Ordered; -TYLE325T5 PO; -VALA1TAB2 PO; -VALT500T PO; -ZANA4CAP PO; +diazePAM 5 MG TAB As Ordered; +oxyCODONE 5MG TAB As Ordered
== END | disposition home or self-care (01) ==
LOC: M PAIN 09:30
DX: G89.29 Other chronic pain (principal); M46.1 Sacroiliitis, not elsewhere classified; J45.909 Unspecified asthma, uncomplicated; A60.09 Herpesviral infection of other urogenital tract; Z79.899 Other long term (current) drug therapy; Z79.51 Long term (current) use of inhaled steroids; Z88.0 Allergy status to penicillin; Z88.1 Allergy status to other antibiotic agents; Z88.8 Allergy status to other drugs, medicaments and biological substances; F17.210 Nicotine dependence, cigarettes, uncomplicated
CPT/HCPCS: J3301

== ENCOUNTER 2017-06-26 09:52 | Emergency (ER) | payer OTHER | END 2017-06-26 11:50 | disposition home or self-care (01) | LOC: M ED 09:52 | DX: S29.012A Strain of muscle and tendon of back wall of thorax, initial encounter (principal); X58.XXXA Exposure to other specified factors, initial encounter; Y92.89 Other specified places as the place of occurrence of the external cause; M62.830 Muscle spasm of back; J45.909 Unspecified asthma, uncomplicated; F17.210 Nicotine dependence, cigarettes, uncomplicated; Z79.51 Long term (current) use of inhaled steroids | CPT/HCPCS: 99282 ==

== ENCOUNTER → 2018-09-22 | Outpatient (CLI) | payer OTHER ==
[~2018-09-22] MED LIST changes: +ACET-716 PO; +ACET500T15 PO; +ANUS2.5C2 TOP; +ARNU1INH3 IN; +BREO1INH INH; -BUPIVACAINE HCL 0.25% 30 ML VIAL As Ordered; +CLEO300C2 PO; +DIPH50CA PO; +DOCU5LIQ PO; +GABA-843 PO; +IBUP-1022 PO; +IBUP600T26 PO; -ISOVUE-M 300 61% 15ML VIAL (Q9967) As Ordered; -LIDOCAINE 1% SDV INJ 30 ML VIAL As Ordered; +MOBI4TAB PO; +MOM30SS PO; +MOTR200T44 PO; +PERC5TAB12 PO; +PRED20TA PO; +PROAAER10 INH; +ROBA500T PO; -TRIAMCINOLONE ACETONIDE SUSP 40 MG/ML VIAL (J3301) As Ordered; +TYLE325T5 PO; +VALA1TAB2 PO; +VALT500T PO; +ZANA4CAP PO; -diazePAM 5 MG TAB As Ordered; -oxyCODONE 5MG TAB As Ordered
--- NOTE | 2018-09-22 14:07 | REP ---
First trimester obstetric ultrasound for dating and viability, stat request: There is an intrauterine gestational sac with a pole. There is cardiac activity. heart rate is 169 beats per minute. There is no subchorionic hematoma. The pole crown-rump length is 1.9 cm corresponding to 8 weeks 3 days gestational age/HENRIK 05/01/2019. Gestational age by LMP is 7 weeks 6 days/HENRIK 05/05/2019. Right ovary: The right ovary is normal size measuring 2.4 x 3.2 x 2.3 cm. There is no dominant mass or cyst. There is vascular flow with the Doppler resistive index of the parenchymal arteries measuring 0.52 Left ovary: The left ovary is normal size measuring 2.9 by a 3.5 x 1.7 cm. There is vascular flow in the left ovary with the Doppler resistive index of the parenchymal arteries measuring 0.65. There is no free fluid in the pelvis. Electronically Signed by Hernandez Liu MD 09/22/2018 01:59 P
== END ==
LOC: M RAD 13:01
PROVIDERS: ATTEND Nurse Practitioner Adult Health
DX: Z36.89 Encounter for other specified antenatal screening (principal); Z3A.08 8 weeks gestation of pregnancy

== ENCOUNTER 2018-10-17 13:37 | Emergency (ER) | payer OTHER ==
[~2018-10-17] VITALS: Ht 167.6 cm; Wt 113.6 kg
[2018-10-17 14:41] LABS: BASO % 0.5 % (0.0-1.0); EOS # 0.3 10^3/uL (0.0-0.50); EOS % 3.9 % (0.0-3.0); HEMATOCRIT 41.6 % (36.0-47.0); LYMPH # 1.8 10^3/uL (1.5-6.5); LYMPH % 21.9 % (24.0-44.0); MEAN CORPUSCULAR HEMOGLOBIN 30.2 pg (27.0-33.0); MEAN CORPUSCULAR HGB CONC 33.7 g/dl (32.0-36.5); MEAN CORPUSCULAR VOLUME 89.7 fl (80.0-96.0); MONO # 0.3 10^3/uL (0.0-0.8); MONO % 4.1 % (0.0-5.0); NEUTROPHILS # 5.8 10^3/uL (1.8-7.7); NEUTROPHILS % 69.2 % (36.0-66.0); PLATELET COUNT, AUTOMATED 316 10^3/uL (150-450); RED BLOOD COUNT 4.64 10^6/uL (4.00-5.40); WHITE BLOOD COUNT 8.3 10^3/uL (4.0-10.0)
[2018-10-17 15:05] LABS: BLOOD UREA NITROGEN 10 MG/DL (7-18); CALCIUM LEVEL 9.3 MG/DL (8.5-10.1); CARBON DIOXIDE LEVEL 27 MEQ/L (21-32); CHLORIDE LEVEL 108 MEQ/L (98-107); CREATININE FOR GFR 0.82 MG/DL (0.55-1.30); GLOMERULAR FILTRATION RATE > 60.0 (>60); GLUCOSE, FASTING 83 MG/DL (70-100); HCG, SERUM QUANTITATIVE 321 MIU/ML; POTASSIUM SERUM 3.5 MEQ/L (3.5-5.1); SODIUM LEVEL 142 MEQ/L (136-145)
[2018-10-17 17:15] VITALS: BP 128/83
--- NOTE | 2018-10-18 07:37 | REP ---
Pelvic sonography: History: Vaginal bleeding. Status post . Question retained products of conception. Findings: Transabdominal and transvaginal scanning are performed. Uterine dimensions are 10.7 x 6.1 x 6.8 cm. Endometrial echo is 2.6 cm thick and heterogeneous. There is hyperemic flow surrounding the heterogeneous endometrium. There are cystic changes in the fundal endometrium. We cannot exclude retained products of conception here. Visualized bladder otto are smooth. No myometrial mass is observed. The left ovary could not be visualized either transabdominally or transvaginally. Right ovarian dimensions are normal at 2.7 x 1.6 x 1.5 cm. Right ovary is high within the pelvis. Its Doppler flow is normal, resistive index is 0.58. Impression: Hyperemic Doppler flow around heterogeneously thickened fundal endometrium. Cannot exclude retained products of conception. Electronically Signed by Jose David Guadalupe MD 10/18/2018 09:39 A
--- NOTE | 2018-10-19 12:01 | ED PDOC ---
Post-Departure Follow-Up dr wilhelm faxed formal report of pelvic us Trevon Mckeon MD Oct 19, 2018 12:01
== END 2018-10-17 17:16 | disposition home or self-care (01) ==
LOC: M ED 13:37
DX: N93.8 Other specified abnormal uterine and vaginal bleeding (principal); Z87.59 Personal history of other complications of pregnancy, childbirth and the puerperium; M54.9 Dorsalgia, unspecified; Z72.0 Tobacco use; Z79.899 Other long term (current) drug therapy; Z88.8 Allergy status to other drugs, medicaments and biological substances; Z88.0 Allergy status to penicillin

== ENCOUNTER 2018-10-21 10:05 | Day surgery (SDC) | payer OTHER ==
[~2018-10-21] VITALS: Ht 167.6 cm; Wt 114.0 kg
[2018-10-21] MEDS ORDERED: LR 1,000 ML IV ONE (10:45)
[2018-10-21] MEDS ORDERED: MIDAZOLAM INJ 2 MG/2 ML VIAL (J2250) As Ordered ONE (11:22)
[2018-10-21] MEDS ORDERED: fentaNYL 100 MCG/2 ML INJECTION (J3010) As Ordered ONE (11:22)
[2018-10-21] MEDS ORDERED: PROPOFOL 500 MG/50 ML VIAL As Ordered ONE (11:22)
[2018-10-21] MEDS ORDERED: ONDANSETRON 4MG/2ML VIAL (J2405) As Ordered ONE (12:15)
[2018-10-21] MEDS ORDERED: LIDOCAINE 2% INJ 100 MG/5 ML SDV (FOR ANES.) As Ordered ONE (12:15)
[2018-10-21] MEDS ORDERED: KETAMINE HCL 200 MG/20 ML VIAL As Ordered ONE (13:08)
[2018-10-21] MEDS ORDERED: LIDOCAINE 1% MDV 20ML VIAL As Ordered ONE (13:13)
[2018-10-21] MEDS ORDERED: IBUP-1022 PO (13:53)
[2018-10-21] MEDS ORDERED: ORTH1TAB8 PO (13:53)
[2018-10-21] MEDS ORDERED: PERCOCET 5MG/325MG TAB As Ordered ONE (14:09)
[2018-10-21] MEDS ORDERED: PERCOCET 5MG/325MG TAB PO PRN (14:15)
[2018-10-21] MEDS ORDERED: fentaNYL 100 MCG/2 ML INJECTION (J3010) IV PRN (14:15)
[2018-10-21] MEDS ORDERED: LR 1,000 ML IV SCH (14:15)
[2018-10-21] MEDS ORDERED: ONDANSETRON 4MG/2ML VIAL (J2405) IV PRN (14:15)
[2018-10-21] MEDS ORDERED: HYDROMORPHONE HCL 0.5 MG/ 0.5 ML SYRINGE (J1170 PER 1) IV PRN (14:15)
[2018-10-21 14:49] VITALS: BP 135/63
[2018-10-21] MEDS ORDERED: DOXYCYCLINE HYCLATE 100 MG TAB PO ONE (15:00)
--- NOTE | 2018-10-22 14:44 | RO ---
DATE OF PROCEDURE: 10/21/2018 PREPROCEDURE DIAGNOSIS: Retained products of conception. POSTPROCEDURE DIAGNOSIS: Retained products of conception. PROCEDURE: Suction dilation and curettage. SURGEON: Dr. Bertha Faye. INTERNATIONAL CONTROLLER: Dr. Kylah Holloway, PGY-3 ANESTHESIA: Monitored anesthesia care (MAC) plus local. FLUIDS: 600 mL. ESTIMATED BLOOD LOSS: 50 mL. URINE OUTPUT: 200 mL. SPECIMENS: Products of conception. COMPLICATIONS: None. FINDINGS: Normal vagina, cervix, uterus and ovaries and tubes. Uterus sounded to approximately 9 cm; gritty uterine texture noted at the end of the case. INDICATION: This is a 28-year-old G6, P4, who underwent a medication approximately 3 weeks ago. She had presented for followup with persistent vaginal bleeding and an ultrasound demonstrates likely retained products of conception, so she presents for a dilation and curettage. DESCRIPTION OF PROCEDURE: The patient was met and greeted in the preoperative holding area where all questions were answered and informed consent was reviewed. She was then taken to the operating room where MAC anesthesia was administered and found to be adequate. She was prepped and draped in the normal sterile fashion in the dorsal lithotomy position. A time-out procedure was performed. A sterile speculum was inserted into the vagina with good visualization of the cervix. A single-tooth tenaculum was used to grasped the anterior lip of the cervix. A cervical block was performed with 10 mL of lidocaine injected at both the 4 -o'clock and 8 -o'clock positions. The cervix was then dilated sequentially using the Ignacio dilators and an 8 mm cannula was inserted and suction curettage was performed until a gritty texture was noted. Several passes were also made with a sharp curet prior to completion. The tenaculum was removed from the cervix and hemostasis was excellent. All instruments were removed from the vagina. The patient was awakened from anesthesia without difficulty and tolerated the procedure well. She was transferred to the recovery room in stable condition. All counts were correct. Dr. Faye was present and scrubbed for the entire procedure. [facility]
== END 2018-10-21 14:53 | disposition home or self-care (01) ==
LOC: M SDC 10:05
PROVIDERS: ATTEND Obstetrics & Gynecology
DX: O73.1 Retained portions of placenta and membranes, without hemorrhage (principal); J45.909 Unspecified asthma, uncomplicated; F17.210 Nicotine dependence, cigarettes, uncomplicated; Z88.0 Allergy status to penicillin
CPT/HCPCS: 59820; 88305; J2250; J2405; J3010

== ENCOUNTER → 2019-02-12 | Outpatient (CLI) | payer OTHER ==
[~2019-02-12] MED LIST changes: +ORTH1TAB8 PO
[2019-02-12 17:30] LABS: BASO % 0.4 % (0.0-1.0); EOS # 0.2 10^3/uL (0.0-0.5); EOS % 2.7 % (0.0-3.0); HEMATOCRIT 35.8 % (36.0-47.0); HEMOGLOBIN 11.4 g/dl (12.0-15.5); LYMPH # 1.8 10^3/uL (1.5-5.0); LYMPH % 21.3 % (24.0-44.0); MEAN CORPUSCULAR HEMOGLOBIN 27.7 pg (27.0-33.0); MEAN CORPUSCULAR HGB CONC 31.8 g/dl (32.0-36.5); MEAN CORPUSCULAR VOLUME 87.1 fl (80.0-96.0); MONO # 0.6 10^3/uL (0.0-0.8); MONO % 6.9 % (0.0-5.0); NEUTROPHILS # 5.8 10^3/uL (1.5-8.5); NEUTROPHILS % 68.3 % (36.0-66.0); PLATELET COUNT, AUTOMATED 306 10^3/uL (150-450); RED BLOOD COUNT 4.11 10^6/uL (4.00-5.40); WHITE BLOOD COUNT 8.5 10^3/uL (4.0-10.0)
[2019-02-12 18:41] LABS: CHLAMYDIA DNA AMPLIFICATION NEGATIVE (NEGATIVE); GC DNA AMPLIFICATION NEGATIVE (NEGATIVE)
[2019-02-15 14:01] LABS: HEPATITIS C VIRUS ABY INDEX 0.1 INDEX (<0.8); HIV 1&2 SCREEN CENTAUR NEGATIVE (NEGATIVE); RUBELLA IgG QUALITATIVE IMMUNE (IMMUNE)
== END ==
LOC: M SMT 14:15
PROVIDERS: ATTEND Advanced Practice Midwife
DX: Z34.81 Encounter for supervision of other normal pregnancy, first trimester (principal)

== ENCOUNTER 2019-02-17 09:14 | Emergency (ER) | payer OTHER ==
[~2019-02-17] VITALS: Ht 167.6 cm; Wt 116.2 kg
[2019-02-17 09:14] VITALS: BP 145/69
[2019-02-17] MEDS ORDERED: QVAR40AE12 (09:18)
[2019-02-17] MEDS ORDERED: LIDOCAINE W/EPINEPHRINE 1% 20ML VIAL SC ONE (09:45)
[2019-02-17] MEDS ORDERED: CLEO300C2 PO (09:56)
== END 2019-02-17 10:12 | disposition home or self-care (01) ==
LOC: M ED 09:14
DX: O99.711 Diseases of the skin and subcutaneous tissue complicating pregnancy, first trimester (principal); L02.416 Cutaneous abscess of left lower limb; O99.511 Diseases of the respiratory system complicating pregnancy, first trimester; J45.909 Unspecified asthma, uncomplicated; O99.89 Other specified diseases and conditions complicating pregnancy, childbirth and the puerperium; M54.9 Dorsalgia, unspecified; Z3A.12 12 weeks gestation of pregnancy; O99.331 Smoking (tobacco) complicating pregnancy, first trimester; F17.210 Nicotine dependence, cigarettes, uncomplicated; Z88.0 Allergy status to penicillin; Z88.1 Allergy status to other antibiotic agents; Z79.51 Long term (current) use of inhaled steroids

== ENCOUNTER → 2019-02-22 | Outpatient (REF) | payer OTHER ==
[~2019-02-22] MED LIST changes: +QVAR40AE12
== END ==
LOC: M LAB REF 13:34
PROVIDERS: ATTEND Advanced Practice Midwife
DX: O99.331 Smoking (tobacco) complicating pregnancy, first trimester (principal)

== ENCOUNTER → 2019-03-22 | Outpatient (CLI) | payer OTHER ==
[~2019-03-22] MED LIST changes: -VALA1TAB2 PO; +VALA1TAB64 PO
== END ==
LOC: M PLALAB 11:13
PROVIDERS: ATTEND Advanced Practice Midwife
DX: Z13.79 Encounter for other screening for genetic and chromosomal anomalies (principal)

== ENCOUNTER → 2019-03-29 | Outpatient (CLI) | payer OTHER ==
--- NOTE | 2019-03-29 12:17 | REP ---
OB ULTRASOUND: Real-time sonographic evaluation of the gravid uterus performed. There is a single living intrauterine gestation with an estimated gestational age 18 weeks 2 days, EDC 08/28/2019. Today's measurements indicate appropriate growth. Biometry and Growth: BPD 36 mm = 17 weeks 1 day, 5th percentile HC 149 mm = 18 weeks 0 days, 38th percentile AC 131 mm = 18 weeks 4 days, 56th percentile FL 27 mm = 18 weeks 0 days, 44th percentile HC/AC ratio 1.14 within normal range. Estimated weight 232 grams 45th percentile. SEEN/GROSSLY UNREMARKABLE Lateral ventricles Yes Posterior fossa Yes Upper lip No Four-chamber heart No LVOT No RVOT No Stomach Yes Cord insertion Yes Three vessel cord Yes Kidneys Yes Bladder Yes Spine Yes Cervical length: Closed and measures 3.8 cm in length. heart rate: 143 beats per minute. position: Breech. Placenta: Posterior and grade 1 with no previa or abruption. Amniotic fluid: Within normal limits. Electronically Signed by Hernandez Hou MD 03/29/2019 01:24 P
== END ==
LOC: M RAD 10:08
PROVIDERS: ATTEND Advanced Practice Midwife
DX: Z34.91 Encounter for supervision of normal pregnancy, unspecified, first trimester (principal)

== ENCOUNTER → 2019-04-20 | Outpatient (CLI) | payer OTHER | LOC: M WHC 10:38 | PROVIDERS: ATTEND Advanced Practice Midwife | DX: Z34.92 Encounter for supervision of normal pregnancy, unspecified, second trimester (principal) ==

== ENCOUNTER 2019-04-29 14:59 | Emergency (ER) | payer OTHER ==
[~2019-04-29] VITALS: Ht 167.6 cm; Wt 116.8 kg
[2019-04-29 14:59] VITALS: BP 147/67
[2019-04-29] MEDS ORDERED: TYLENOL 1000 MG (15:07)
[2019-04-29] MEDS ORDERED: PRENTAB9 PO (17:24)
== END 2019-04-29 17:07 | disposition admitted as inpatient to this hospital (09) ==
LOC: M ED 14:59
DX: M54.5 Low back pain (principal); Z53.21 Procedure and treatment not carried out due to patient leaving prior to being seen by health care provider

== ENCOUNTER 2019-04-29 17:09 | Outpatient (CLI) | payer OTHER ==
[~2019-04-29] VITALS: Ht 167.6 cm; Wt 117.4 kg
[~2019-04-29 17:09] MED LIST changes: +TYLENOL 1000 MG
[2019-04-29] MEDS ORDERED: PRENTAB9 PO (17:24)
[2019-04-29 17:34] VITALS: BP 105/55
[2019-04-29] MEDS ORDERED: ACETAMINOPHEN 500 MG TAB As Ordered ONE (20:07)
[2019-04-29] MEDS ORDERED: ACETAMINOPHEN 500 MG TAB PO ONE (20:15)
== END 2019-04-29 20:00 | disposition home or self-care (01) ==
LOC: M LDO 17:09
PROVIDERS: ATTEND Obstetrics & Gynecology
DX: O26.892 Other specified pregnancy related conditions, second trimester (principal); R10.2 Pelvic and perineal pain; M54.9 Dorsalgia, unspecified; Z3A.22 22 weeks gestation of pregnancy

== ENCOUNTER → 2019-05-11 | Outpatient (CLI) | payer OTHER ==
[~2019-05-11] MED LIST changes: +PRENTAB9 PO
--- NOTE | 2019-05-12 05:35 | REP ---
Clinical: Anatomical evaluation. Comparison: 03/29/2019 . Findings: Examination demonstrates a single live intrauterine in breech/transverse presentation. motion is identified by technologist. Placenta is noted posterior and grade I without evidence for placenta previa or abruption. Amniotic fluid volume is normal. Cervix measures 5.7 cm in length and appears closed. No evidence for nuchal cord. Gestational age by LMP 24 weeks 3 days with HENRIK 08/28/2019 . Gestational age by current measurements 24 weeks 3 day with HENRIK 08/28/2019 . FHR equals 152 beats per minute. Estimated weight 753 grams ( 60th percentile). Anatomical assessment demonstrates normal structures including facial features, lungs, four-chamber heart/ventricular outflow tracts. Impression: Single live intrauterine in breech/transverse presentation demonstrating appropriate interval growth. 2. In conjunction with prior examination anatomical assessment is complete and normal. Electronically Signed by Jose Ribeiro MD 05/12/2019 05:26 A
== END ==
LOC: M RAD 09:01
PROVIDERS: ATTEND Advanced Practice Midwife
DX: Z34.92 Encounter for supervision of normal pregnancy, unspecified, second trimester (principal)

== ENCOUNTER → 2019-06-08 | Outpatient (CLI) | payer OTHER ==
[~2019-06-08] MED LIST changes: +VALA1TAB5 PO; -VALA1TAB64 PO
[2019-06-08 14:42] LABS: HEMATOCRIT 32.3 % (36.0-47.0); HEMOGLOBIN 10.5 g/dl (12.0-15.5); MEAN CORPUSCULAR HEMOGLOBIN 27.8 pg (27.0-33.0); MEAN CORPUSCULAR HGB CONC 32.5 g/dl (32.0-36.5); MEAN CORPUSCULAR VOLUME 85.4 fl (80.0-96.0); PLATELET COUNT, AUTOMATED 312 10^3/uL (150-450); RED BLOOD COUNT 3.78 10^6/uL (4.00-5.40); WHITE BLOOD COUNT 8.8 10^3/uL (4.0-10.0)
== END ==
LOC: M LAB 12:36
PROVIDERS: ATTEND Advanced Practice Midwife
DX: Z34.82 Encounter for supervision of other normal pregnancy, second trimester (principal)

== ENCOUNTER → 2019-07-27 | Outpatient (REF) | payer OTHER | LOC: M SFHCWAGY 16:51 | PROVIDERS: ATTEND Advanced Practice Midwife | DX: Z3A.35 35 weeks gestation of pregnancy (principal) ==

== ENCOUNTER → 2019-07-30 | Outpatient (REF) | payer OTHER | LOC: M PLALAB 15:22 | PROVIDERS: ATTEND Advanced Practice Midwife | DX: Z3A.35 35 weeks gestation of pregnancy (principal) ==

== ENCOUNTER → 2019-08-03 | Outpatient (CLI) | payer OTHER ==
--- NOTE | 2019-08-03 18:16 | REP ---
Clinical: Growth evaluation. Comparison: 05/11/2019 . Findings: Examination demonstrates a single live intrauterine in cephalic presentation. motion is identified by technologist. Placenta is noted posterior and grade I I without evidence for placenta previa or abruption. Amniotic fluid volume is normal. Cervix measures 3.3 cm in length and appears closed. No evidence for nuchal cord. Gestational age by LMP 36 weeks 3 days with HENRIK 08/28/2019 . Gestational age by current measurements 37 weeks 3 days with HENRIK 08/21/2019 . FHR equals 138 beats per minute. Estimated weight by current biometrical measurements 3405 grams (82nd percentile). Anatomical assessment demonstrates no obvious abnormalities. Impression: Single live advanced gestation in cephalic presentation demonstrating appropriate interval growth and estimated weight. No gross abnormalities are identified.
== END ==
LOC: M WHC 08:30
PROVIDERS: ATTEND Advanced Practice Midwife
DX: O99.213 Obesity complicating pregnancy, third trimester (principal); E66.9 Obesity, unspecified; Z3A.36 36 weeks gestation of pregnancy

== ENCOUNTER 2019-08-21 10:56 | Inpatient (IN) | payer OTHER ==
[~2019-08-21] VITALS: Ht 167.6 cm; Wt 121.4 kg
[2019-08-21] VITALS (34 sets, daily range): BP systolic 105–132; BP diastolic 54–72
[2019-08-21] MEDS ORDERED: ARNU1INH PO (11:26)
[2019-08-21] MEDS ORDERED: LACTATED RINGER'S 1000 ML IV STA (11:29)
[2019-08-21] MEDS ORDERED: OXYTOCIN DRIP 30 UNITS in IV 1 EA IV SCH (12:00)
[2019-08-21 12:15] LABS: HEMATOCRIT 30.5 % (36.0-47.0); HEMOGLOBIN 9.8 g/dl (12.0-15.5); MEAN CORPUSCULAR HEMOGLOBIN 26.1 pg (27.0-33.0); MEAN CORPUSCULAR HGB CONC 32.1 g/dl (32.0-36.5); MEAN CORPUSCULAR VOLUME 81.3 fl (80.0-96.0); PLATELET COUNT, AUTOMATED 306 10^3/uL (150-450); RED BLOOD COUNT 3.75 10^6/uL (4.00-5.40)
[2019-08-21] MEDS: LR 1,000 ML IV SCH ×2 (12:34→17:01)
[2019-08-21] MEDS ORDERED: VALT500T PO (12:55)
[2019-08-21] MEDS ORDERED: FENTANYL 2MCG/ML ROPIVACAINE 0.2% IN 0.9% NACL 100ML IVBAG As Ordered ONE (19:15)
[2019-08-21] MEDS ORDERED: ONDANSETRON 4MG/2ML VIAL IV PRN (20:10)
[2019-08-21] MEDS ORDERED: EPIDURAL/PCA KEYS XX PRN (20:10)
[2019-08-21] MEDS ORDERED: FENTANYL/ROPIVACAINE/NACL BAG 100 ML EPIDURAL SCH (20:10)
[2019-08-21] MEDS ORDERED: diphenhydrAMINE 50MG/ML VIAL (J1200) IV PRN (20:10)
[2019-08-21] MEDS ORDERED: LACTATED RINGER'S 1000 ML IV PRN (20:10)
[2019-08-21] MEDS ORDERED: ePHEDrine SULFATE 25 MG/5 ML(5MG/ML) SYRINGE IV PRN (20:10)
[2019-08-21] MEDS ORDERED: REFRIGERATOR IV KEYS XX PRN (20:10)
[2019-08-21] MEDS ORDERED: EPIDURAL COMMENT XX SCH (20:10)
[2019-08-21] MEDS ORDERED: NALOXONE INJ 0.4MG/1ML VIAL (J2310 PER 1MG) IV PRN (20:10)
[2019-08-22] VITALS (11 sets, daily range): BP systolic 98–133; BP diastolic 56–64
[2019-08-22] MEDS ORDERED: OXYTOCIN DRIP 30 UNITS in IV 1 EA IV SCH (01:46)
[2019-08-22] MEDS: LR 1,000 ML IV SCH ×2 (01:46→09:46)
[2019-08-22] MEDS ORDERED: ACETAMINOPHEN TAB 650MG DOSE (2X325MG) PO PRN (02:00)
[2019-08-22] MEDS ORDERED: MEASLES,MUMPS,RUBELLA VACCINE INJ (MMR-II) (90707) SC SCH (02:00)
[2019-08-22] MEDS ORDERED: DIBUCAINE 1% OINTMENT 30GM TOP PRN (02:00)
[2019-08-22] MEDS ORDERED: PROMETHAZINE 25 MG TAB PO PRN (02:00)
[2019-08-22] MEDS ORDERED: IBUPROFEN 600 MG TAB PO PRN (02:00)
[2019-08-22] MEDS ORDERED: IBUPROFEN 800 MG TAB PO PRN (02:00)
[2019-08-22] MEDS ORDERED: ONDANSETRON 4MG/2ML VIAL IV PRN (02:00)
[2019-08-22] MEDS ORDERED: DOCUSATE SODIUM 100 MG CAP PO PRN (02:00)
[2019-08-22] MEDS ORDERED: RHOGAM 300 MCG (1500 IU) INJ (J2790) IM SCH (02:00)
[2019-08-22] MEDS ORDERED: diphenhydrAMINE 50MG/ML VIAL (J1200) IV ONE (02:00)
[2019-08-22] MEDS: ACETAMINOPHEN 500 MG TAB PO PRN ×2 (03:05→14:36)
[2019-08-22] MEDS: PRENATAL VITAMINS CHEWABLE TABLET PO SCH (09:49)
[2019-08-23 06:00] VITALS: BP 124/62
[2019-08-23] MEDS ORDERED: ACET-683 PO (07:14)
[2019-08-23] MEDS: PRENATAL VITAMINS CHEWABLE TABLET PO SCH (07:58)
[2019-08-23] MEDS ORDERED: INFLUENZA QUADRIVALENT PF VACCINE 0.5ML SYRINGE (90686) IM ONE (09:00)
== END 2019-08-23 12:30 | disposition home or self-care (01) | DRG 560 ==
LOC: M LDI 10:56 → M OBS 08-22 03:41
PROVIDERS: ADMIT Obstetrics & Gynecology; ATTEND Obstetrics & Gynecology
PROC: 10907ZC Drainage of Amniotic Fluid, Therapeutic from Products of Conception, Via Natural or Artificial Opening (ICD-10-PCS; 2019-08-21)
PROC: 3E033VJ Introduction of Other Hormone into Peripheral Vein, Percutaneous Approach (ICD-10-PCS; 2019-08-21)
PROC: 10E0XZZ Delivery of Products of Conception, External Approach (ICD-10-PCS; principal; 2019-08-22)
DX: O98.32 Other infections with a predominantly sexual mode of transmission complicating childbirth (principal); Z3A.39 39 weeks gestation of pregnancy; O99.334 Smoking (tobacco) complicating childbirth; F17.210 Nicotine dependence, cigarettes, uncomplicated; Z37.0 Single live birth

== ENCOUNTER 2019-11-05 08:55 | Day surgery (SDC) | payer OTHER ==
[~2019-11-05 08:55] MED LIST changes: +ACET-683 PO; +ARNU1INH PO; +HYDROmorphone HCL 2 MG/ML 1ML VIAL (J1170) As Ordered ONE; +KETOROLAC 60MG 2ML VIAL As Ordered ONE; +LIDOCAINE 2% 100MG/5ML SDV (FOR ANES.) As Ordered ONE; +MIDAZOLAM INJ 2MG/2ML VIAL (J2250 PER 1MG) As Ordered ONE; +ONDANSETRON 4MG/2ML VIAL As Ordered ONE; +ROCURONIUM BROMIDE 50 MG/5 ML VIAL As Ordered ONE; +dexameTHASONE 4 MG/ML 1ML VIAL (J1100 PER 1MG) As Ordered ONE; +fentaNYL 100 MCG/2 ML INJECTION (J3010) As Ordered ONE; +propofoL 200 MG/20 ML VIAL As Ordered ONE
[2019-11-05] MEDS ORDERED: BUPIVACAINE HCL 0.25% 10ML VIAL As Ordered ONE (09:47)
[2019-11-05] MEDS ORDERED: ACETAMINOPHEN 1000MG 100ML IV BTL (OFIRMEV) (J0131 PER 10MG) As Ordered ONE (10:05)
[2019-11-05] MEDS ORDERED: SUGAMMADEX SODIUM 500 MG/5 ML VIAL (BRIDION) As Ordered ONE (10:07)
[2019-11-05] MEDS ORDERED: oxyCODONE 5MG TAB As Ordered ONE (11:08)
[2019-11-05] MEDS ORDERED: fentaNYL 100 MCG/2 ML INJECTION (J3010) As Ordered ONE (11:08)
[2019-12-11 07:35] LABS: HEMATOCRIT 40.2 % (36.0-47.0); HEMOGLOBIN 12.7 g/dl (12.0-15.5); MEAN CORPUSCULAR HEMOGLOBIN 27.3 pg (27.0-33.0); MEAN CORPUSCULAR HGB CONC 31.6 g/dl (32.0-36.5); MEAN CORPUSCULAR VOLUME 86.3 fl (80.0-96.0); PLATELET COUNT, AUTOMATED 344 10^3/uL (150-450); RED BLOOD COUNT 4.66 10^6/uL (4.00-5.40); WHITE BLOOD COUNT 7.2 10^3/uL (4.0-10.0)
--- NOTE | 2020-01-14 06:48 | RO ---
Date of Operation: 11/05/2019 PREOPERATIVE DIAGNOSIS: Satisfied parity. POSTOPERATIVE DIAGNOSIS: Satisfied parity. PROCEDURE PERFORMED: Laparoscopic bilateral opportunistic salpingectomy. SURGEON: Usman Head DO INSOLE BOTTOM FILLER: None. ANESTHESIA: General endotracheal. SPECIMENS: Bilateral fallopian tubes. ESTIMATED BLOOD LOSS: 10 mL. FLUIDS PLACED: 1000 mL of lactated ringers. DRAINS: In and out catheter with 20 mL of urine output. COMPLICATIONS: None. PREOPERATIVE ANTIBIOTICS: None indicated. INTRAOPERATIVE FINDINGS: Normal uterus and bilateral adnexa/ovaries. No adhesion/intraabdominal scar tissue. INDICATIONS FOR PROCEDURE: The patient expressed 100% satisfied parity requesting permanent tubal sterilization after review of all of her control options. DESCRIPTION OF PROCEDURE: The patient was counseled and consented on the risks, benefits, indications, and alternatives of the procedure. Informed consent was obtained. She was taken to the operating room with an IV ready and placed on the operating room table in the dorsal supine position. General anesthesia was administered and the airway secured without any difficulty. She was then placed in the low lying lithotomy position. She was prepared and draped in the normal sterile fashion. A timeout was performed per protocol. Attention was first turned to the vagina. A sterile catheter was used to drain the bladder. A sterile speculum was placed into the vagina with good visualization of the cervix. The anterior lip of the cervix was grasped with a single-tooth tenaculum and gentle retraction was applied. The ZUMI uterine manipulator was then placed without any difficulties. The single-tooth tenaculum was removed. The vacuum sites were noted to be hemostatic. Sterile speculum was removed and glove switch was performed. Attention was turned to the abdomen. A 0.25% Marcaine approximately 5 mL injected into the umbilicus. An 11-blade was used to make a 5-mm incision in the umbilicus. Through this incision a Veress needle was placed into the intraperitoneal cavity. Intraperitoneal placement was confirmed with easy flow of normal saline, positive drop test, and negative return on aspiration. The abdomen was then insufflation with 2 L of gas. The Veress needle was removed. A size 5-mm XL laparoscopic trocar was placed into the intraperitoneal cavity without any difficulty. No incidental bleeding or injury was noted. The patient was then placed in steep Trendelenburg. Two additional laparoscopic trocars were placed in the left lower abdomen through 5-mm incisions, and under direct laparoscopic visualization, these trocars were placed. Attention was first turned to the right fallopian tube. The right fallopian tube was followed out to the fimbriated end. The right fallopian tube was grasped and elevated. The underlying mesosalpinx was sequentially clamp coagulated and transected using the 5-mm LigaSure device. This was sequentially done to the level of the cornu. At the level of the cornu, the fallopian tube was clamped, coagulated, and transected with the LigaSure device; thus, amputating the right fallopian tube. The right fallopian tube was brought through the 8-mm cannula without any difficulty and sent to pathology for permanent section. Attention was then turned to the left fallopian tube. The left fallopian tube was followed out to the fimbriated end. The fimbriated end and fallopian tube were grasped, elevated, and the underlying mesosalpinx was sequentially clamped, coagulated, and transected with the 5-mm LigaSure device to the level of the cornu. At the level of the cornu, the fallopian tube was clamped, coagulated, and transected; thus, amputating the left fallopian tube. The left fallopian tube was brought the 8-mm cannula. Both left and right surgical sites were noted to be completely hemostatic. The decision was made to conclude the procedure. The patient was taken out of Trendelenburg. The gas was released from the abdomen. The cannulas were removed. The skin incisions were closed with 4-0 Monocryl in subcuticular fashion and reinforced with Dermabond. Attention was turned back to the vagina. The uterine manipulator was removed in its entirety and noted to be intact. All instruments were removed from the vagina. The sponge, needle, and instrument count were correct per protocol. The patient tolerated the entire procedure well. She was transferred to the PACU in good and stable condition. MARIA EUGENIA
== END 2019-11-05 12:16 | disposition home or self-care (01) ==
LOC: M SDC 08:55
PROVIDERS: ATTEND Obstetrics & Gynecology
DX: Z30.2 Encounter for sterilization (principal); J45.909 Unspecified asthma, uncomplicated; F17.218 Nicotine dependence, cigarettes, with other nicotine-induced disorders; Z79.899 Other long term (current) drug therapy; Z88.0 Allergy status to penicillin; Z88.1 Allergy status to other antibiotic agents
CPT/HCPCS: 58661; 85027; 86850; 86900; 86901; 88302; J0131; J1100; J1170; J1885; J2250; J2405; J3010

== ENCOUNTER → 2020-05-10 | Outpatient (CLI) | payer OTHER ==
[~2020-05-10] MED LIST changes: +GABA-282 PO; -GABA-843 PO; -HYDROmorphone HCL 2 MG/ML 1ML VIAL (J1170) As Ordered ONE; -KETOROLAC 60MG 2ML VIAL As Ordered ONE; -LIDOCAINE 2% 100MG/5ML SDV (FOR ANES.) As Ordered ONE; -MIDAZOLAM INJ 2MG/2ML VIAL (J2250 PER 1MG) As Ordered ONE; -ONDANSETRON 4MG/2ML VIAL As Ordered ONE; -ROCURONIUM BROMIDE 50 MG/5 ML VIAL As Ordered ONE; -dexameTHASONE 4 MG/ML 1ML VIAL (J1100 PER 1MG) As Ordered ONE; -fentaNYL 100 MCG/2 ML INJECTION (J3010) As Ordered ONE; -propofoL 200 MG/20 ML VIAL As Ordered ONE
[2020-05-10 13:53] LABS: BASO # 0.1 10^3/uL (0.0-0.2); BASO % 0.9 % (0.0-1.0); EOS # 0.5 10^3/uL (0.0-0.5); EOS % 8.1 % (0.0-3.0); HEMATOCRIT 41.8 % (36.0-47.0); HEMOGLOBIN 13.1 g/dl (12.0-15.5); LYMPH # 1.7 10^3/uL (1.5-5.0); LYMPH % 25.2 % (24.0-44.0); MEAN CORPUSCULAR HEMOGLOBIN 27.9 pg (27.0-33.0); MEAN CORPUSCULAR HGB CONC 31.3 g/dl (32.0-36.5); MEAN CORPUSCULAR VOLUME 88.9 fl (80.0-96.0); MONO # 0.5 10^3/uL (0.0-0.8); NEUTROPHILS # 3.8 10^3/uL (1.5-8.5); NEUTROPHILS % 58.3 % (36.0-66.0); PLATELET COUNT, AUTOMATED 343 10^3/uL (150-450); WHITE BLOOD COUNT 6.5 10^3/uL (4.0-10.0)
[2020-05-10 14:21] LABS: HEMOGLOBIN A1c 5.9 %
[2020-05-10 14:33] LABS: ALBUMIN 3.6 GM/DL (3.2-5.2); ALT/SGPT 28 U/L (12-78); BILIRUBIN,TOTAL 0.5 MG/DL (0.2-1.0); BLOOD UREA NITROGEN 12 MG/DL (7-18); CARBON DIOXIDE LEVEL 31 MEQ/L (21-32); CHLORIDE LEVEL 106 MEQ/L (98-107); CHOLESTEROL LEVEL 152 MG/DL (<200); CHOLESTEROL RISK RATIO 3.619 (<5); CREATININE FOR GFR 0.75 MG/DL (0.55-1.30); GLOMERULAR FILTRATION RATE > 60.0 (>60); GLUCOSE, FASTING 95 MG/DL (70-100); HDL CHOLESTEROL 42 MG/DL (>40); LDL CHOLESTEROL 99 MG/DL (<100); NON-HDL-C 110 MG/DL; POTASSIUM SERUM 4.7 MEQ/L (3.5-5.1); SODIUM LEVEL 140 MEQ/L (136-145); TOTAL PROTEIN 7.2 GM/DL (6.4-8.2); TRIGLYCERIDES LEVEL 53 MG/DL (<150)
== END ==
LOC: M PLALAB 10:03
PROVIDERS: ATTEND Family Medicine
DX: F41.9 Anxiety disorder, unspecified (principal)

== ENCOUNTER → 2020-08-11 | Outpatient (CLI) | payer OTHER ==
[2020-08-11 12:07] LABS: BASO # 0.1 10^3/uL (0.0-0.2); BASO % 0.8 % (0.0-1.0); EOS # 0.4 10^3/uL (0.0-0.5); EOS % 5.3 % (0.0-3.0); HEMATOCRIT 41.1 % (36.0-47.0); HEMOGLOBIN 12.8 g/dl (12.0-15.5); LYMPH # 1.4 10^3/uL (1.5-5.0); MEAN CORPUSCULAR HEMOGLOBIN 28.3 pg (27.0-33.0); MEAN CORPUSCULAR HGB CONC 31.1 g/dl (32.0-36.5); MEAN CORPUSCULAR VOLUME 90.9 fl (80.0-96.0); MONO # 0.6 10^3/uL (0.0-0.8); MONO % 7.4 % (2.0-8.0); NEUTROPHILS # 5.1 10^3/uL (1.5-8.5); PLATELET COUNT, AUTOMATED 316 10^3/uL (150-450); RED BLOOD COUNT 4.52 10^6/uL (4.00-5.40); WHITE BLOOD COUNT 7.6 10^3/uL (4.0-10.0)
[2020-08-11 12:37] LABS: HEMOGLOBIN A1c 5.7 %
[2020-08-11 12:52] LABS: ALBUMIN 3.8 GM/DL (3.2-5.2); ALT/SGPT 27 U/L (12-78); BILIRUBIN,TOTAL 0.3 MG/DL (0.2-1.0); BLOOD UREA NITROGEN 13 MG/DL (7-18); CALCIUM LEVEL 9.2 MG/DL (8.5-10.1); CARBON DIOXIDE LEVEL 29 MEQ/L (21-32); CHLORIDE LEVEL 108 MEQ/L (98-107); CREATININE FOR GFR 0.75 MG/DL (0.55-1.30); GLOMERULAR FILTRATION RATE > 60.0 (>60); GLUCOSE, FASTING 115 MG/DL (70-100); POTASSIUM SERUM 4.8 MEQ/L (3.5-5.1); SODIUM LEVEL 142 MEQ/L (136-145); THYROID STIMULATING HORMONE 0.733 uIU/ML (0.358-3.740); TOTAL PROTEIN 6.9 GM/DL (6.4-8.2)
== END ==
LOC: M PLALAB 09:39
PROVIDERS: ATTEND Nurse Practitioner Adult Health
DX: R73.03 Prediabetes (principal); E78.00 Pure hypercholesterolemia, unspecified; E66.9 Obesity, unspecified; Z79.899 Other long term (current) drug therapy

== ENCOUNTER 2021-02-26 19:27 | Emergency (ER) | payer OTHER ==
[~2021-02-26] VITALS: Ht 167.6 cm; Wt 103.2 kg
[2021-02-26 23:30] LABS: VENOUS BASE EXCESS 0.1 (-2.0-2.0); VENOUS HCO3 25.6 MEQ/L (23.0-27.0); VENOUS O2 SATURATION 71.1 % (60.0-80.0); VENOUS PARTIAL PRESSURE CO2 44.8 mmHg (38.0-50.0); VENOUS PARTIAL PRESSURE O2 34.9 mmHg (30.0-50.0); VENOUS PH 7.375 UNITS (7.330-7.430); VENOUS STANDARD HCO3 23.9 MEQ/L
[2021-02-26 23:42] LABS: BASO # 0.1 10^3/uL (0.0-0.2); BASO % 0.9 % (0.0-1.0); EOS # 0.3 10^3/uL (0.0-0.5); EOS % 3.4 % (0.0-3.0); HEMATOCRIT 39.8 % (36.0-47.0); HEMOGLOBIN 13.5 g/dl (12.0-15.5); LYMPH # 2.5 10^3/uL (1.5-5.0); LYMPH % 32.3 % (24.0-44.0); MEAN CORPUSCULAR HGB CONC 33.9 g/dl (32.0-36.5); MEAN CORPUSCULAR VOLUME 85.4 fl (80.0-96.0); MONO # 0.5 10^3/uL (0.0-0.8); NEUTROPHILS # 4.3 10^3/uL (1.5-8.5); NEUTROPHILS % 56.1 % (36.0-66.0); PLATELET COUNT, AUTOMATED 283 10^3/uL (150-450); RED BLOOD COUNT 4.66 10^6/uL (4.00-5.40); WHITE BLOOD COUNT 7.6 10^3/uL (4.0-10.0)
[2021-02-26 23:53] LABS: HEMOGLOBIN A1c 8.7 %
[2021-02-26 23:54] LABS: OSMOLALITY SERUM 293 MOSM/KG (275-295)
[2021-02-26 23:58] LABS: ACETONE/KETONE 3.37 MG/DL (<2.81); ALBUMIN 4.1 GM/DL (3.2-5.2); ALT/SGPT 29 U/L (12-78); BILIRUBIN,DIRECT 0.2 MG/DL (0.0-0.2); BILIRUBIN,TOTAL 0.7 MG/DL (0.2-1.0); BLOOD UREA NITROGEN 12 MG/DL (7-18); CALCIUM LEVEL 9.2 MG/DL (8.5-10.1); CARBON DIOXIDE LEVEL 27 MEQ/L (21-32); CHLORIDE LEVEL 104 MEQ/L (98-107); CREATININE FOR GFR 0.78 MG/DL (0.55-1.30); GLOMERULAR FILTRATION RATE > 60.0 (>60); GLUCOSE, FASTING 237 MG/DL (70-100); LIPASE 59 U/L (73-393); POTASSIUM SERUM 3.8 MEQ/L (3.5-5.1); SODIUM LEVEL 138 MEQ/L (136-145); TOTAL PROTEIN 7.6 GM/DL (6.4-8.2)
[2021-02-27] MEDS ORDERED: metFORMIN (GLUCOPHAGE) 500MG TAB PO ONE (00:40)
[2021-02-27] MEDS ORDERED: METF500T13 PO (01:16)
--- OUTSIDE RECORDS SUMMARY | 2021-02-27 01:24 | CCD | Continuity of Care Document ---
Author Author Matilde DAY [employer] Organization Unknown Address [address] [place] [address] Phone [phone] Care Team Providers Care Fund Raiser Name Role Phone Tanya Day AUTM [phone] Problems Active Problems Provider Date Asthma without status asthmaticus PATTI Rivera, PNP On set: 11/18/2019 Pure hypercholesterolemia PATTI Rivera, PNP Onset: Vitamin D deficiency PATTI Rivera, PNP Onset: 11/18/19 20 Genital herpes simplex PATTI Rivera, PNP Onset: 2019 Lumbar radiculopathy PATTI Rivera, PNP Onset: 11/18/19 20 Prediabetes PATTI Rivera, PNP Onset: 0 Obesity PATTI Rivera, PNP Onset: 0 Taking medication PATTI Rivera PNP Onset: 0 Body mass index 40+ - severely obese PATTI Rivera PNP Onset: 11/18/2019 Social History Type Date Description Comments Sex Unknown Tobacco Use Start: Unknown Current Cigarette Smoker 1/2 Pac k Daily Tobacco Use Start: Unknown Never Smoked Cigars Tobacco Use Start: Unknown Never Smoked A Pipe Tobacco Use Start: Unknown Never Used Smokeless Tobacco ETOH Use Denies alcohol use Tobacco Use Start: Unknown Patient is a current smoker, smo kes every day Recreational Drug Use Denies Drug Use Allergies and adverse reactions Active Allergies Criticality Reaction | Severity Comments Date Cefzil Unable to assess criticality 11/18/2019 Erythromycin Unable to assess criticality 11/18/2019 Suprax Unable to assess criticality 11/18/2019 Medications Active Medications SIG Qnty Indications Ordering Provide r Date Bupropion Hydrochloride ER (SR) 150mg Tablets ER 12HR take one tablet by mouth every day in the morning 30tabs Vinicio Duncan MD 03/14/2020 Fluoxetine HCL 20mg Capsules 2 caps by mouth every day 60caps Vinicio Duncan MD 02/18/2020 Albuterol Sulfate HFA 108(90Base) mcg/Act Aerosol inhale two puffs by mouth every 4 hours as needed 8.500gm Vinicio Duncan MD Arnuity Ellipta 200mcg/Act Aerosol inhale one puff by mouth every day 30units Vinicio Duncan MD Valacyclovir HCL 500mg Tablets 1 by mouth twice a day as needed 14tabs Unknown Immunizations CPT Code Status Date Vaccine Lot # [id number] Given 01/10/2021 Influenza (>= 6 Months) P.F. Vaccine [id number] 80083 Given 02/18/2020 Influenza (>= 6 Months) P.F. Vaccine [id number] Given 07/12/2019 Tdap (Boostrix/[place] [address] Given 07/12/2019 Tdap (Boostrix/Adacel) Vacci ne Q2038 Given 01/18/2015 Influenza Vaccine (Fluzone) Administered Age 3 And Older [address] Given 01/18/2015 Tdap (Boostrix/[place] [address] Given 10/26/2013 Tdap (Boostrix/Adacel) Vacci ne Vital Signs Date Vital Result Comment 01/10/2021 10:38am BP Systolic 126 mmHg BP Diastolic 78 mmHg Heart Rate 92 /min Body Temperature 97.3 F Respiratory Rate 16 /min O2 % BldC Oximetry 99 % Weight 238.00 lb Weight 107.957 kg Height 66 inches 5'6" BMI (Body Mass Index) 38.4 kg/m2 BSA (Body Surface Area) 2.15 m2 05/17/2020 2:14pm BP Systolic 118 mmHg BP Diastolic 62 mmHg Heart Rate 82 /min Body Temperature 97.2 F Respiratory Rate 18 /min O2 % BldC Oximetry 98 % Weight 257.00 lb Weight 116.575 kg Height 66 inches 5'6" BMI (Body Mass Index) 41.5 kg/m2 BSA (Body Surface Area) 2.22 m2 Results Test Acquired Date Facility Test Result H/L Range Note Comprehensive Metabolic Panel 01/10/2021 [facility] Comprehensive Metabo (SEE NOTE) 1, 2 Sodium 142 mEq/L 134 - 153 Potassium 4.5 mEq/L 3.6 - 5.0 Chloride 107 mEq/L 98 - 107 Co2 25 mEq/L 22 - 30 Glucose 122 mg/dL High 70 - 99 BUN 17 mg/dL 7 - 21 Creatinine 0.7 mg/dL 0.7 - 1.5 BUN/Creat 24 8 - 27 Total Protein 7.1 g/dL 6.3 - 8.2 Albumin 4.4 g/dL 3.9 - 5.0 Globulin 2.7 GM/DL 2.4 - 3.2 A/G Ratio 1.6 0.8 - 2.0 Calcium 9.8 mg/dL 8.4 - 10.2 Total Bili <0.7 mg/dL 0.2 - 1.3 Alkaline Phos 69 U/L 38 - 126 Sgot/Ast 16 U/L 5 - 40 SGPT/Alt 17 U/L 7 - 56 Anion Gap 10.0 mmol/L 8.0 - 16.0 Age 30 yrs Non-Aa GFR >60 mL/min Afr Amer GFR >60 mL/min 3 CBC W/Automated Diff 01/10/2021 [facility] CBC W/Automated Diff (SEE NOTE) 4 WBC 6.1 10^3/uL 4.2 - 11.0 RBC 4.60 10^6/uL 4.20 - 5.40 Hemoglobin 13.3 g/dL 12.0 - 16.0 Hematocrit 40.8 % 37.0 - 47.0 MCV 88.7 fL 81.0 - 101 MCH 28.9 pg 27.0 - 34.0 MCHC 32.6 g/dL 31.0 - 36.0 RDW 12.8 % 11.5 - 14.5 Platelets 350 10^3/uL 150 - 450 MPV 10.5 fL High 7.4 - 10.4 Neut 59.7 % 37.0 - 80.0 Lymph 27.7 % 25.0 - 40.0 [place] 6.7 % 3.0 - 8.0 Eos 4.9 % 0.0 - 7.0 Baso 0.7 % 0.0 - 2.5 %Ig 0.3 % High 0.0 - 0.0 %NRBC 0.0 % 0.0 - 0.0 #Neut 3.66 10^3/uL 2.00 - 6.90 #Lymph 1.70 10^3/uL 0.60 - 3.40 #[place] 0.41 10^3/uL 0.00 - 0.90 #Eos 0.30 10^3/uL 0.00 - 0.70 #Baso 0.04 10^3/uL 0.00 - 0.20 #Ig 0.02 10^3/uL 0.00 - 0.10 #NRBC 0.00 10^3/uL 0.00 - 0.00 Manual Diff NOT INDICATED RBC Morph NOT INDICATED Laboratory test finding 01/10/2021 [facility] Hgba1c 6.1 % 4.4 - 6.1 TSH Highly Sensitive 0.53 uIU/mL 0.47 - 5.01 Cve Panel 01/10/2021 [facility] Cve Panel (SEE NOTE) 5 Cholesterol 133 mg/dL 131 - 200 Triglycerides 53 mg/dL 35 - 160 HDL 40 mg/dL 29 - 86 LDL 82 mg/dL 65 - 175 Risk Factor 3.3 3.2 - 4.4 LDL/HDL 2.05 1.47 - 3.22 6 1 Is patient fasting? N Is pa tient fasting? Y 2 COMPREHENSIVE METABOLIC PANE L 3 Male GFR Interprentation 20-49 yrs >60 mL/min Normal 50-59 yrs >56 mL/min Normal 60-69 yrs >49 mL/min Normal 70-79yrs >42 mL/min Normal 80 and above >35 mL/min Normal Female GFR Interpretation 20-39 yrs >60 mL/min Normal 40-49 yrs >58 mL/min Normal 50-59 yrs >51 mL/min Normal 60-69 yrs >45 mL/min Normal 70-79 yrs >39 mL/min Normal 80 and above >32 mL/min Normal 4 COMPLETE BLOOD COUNT 5 LIPID PANEL 6 CVE RISK CHOL/HDL LDL/HDL MEN: 1/2 AVERAGE 3.43 1.00 AVERAGE 4.97 3.55 2X AVERAGE 9.55 6.25 3X AVERAGE 23.99 7.99 WOMEN: 1/2 AVERAGE 3.27 1.47 AVERAGE 4.44 3.22 2X AVERAGE 7.05 5.03 3X AVERAGE 11.04 6.14 Procedures Date Code Description Status 01/10/2021 13615 Office/Outpatient Established Mo d MDM 30-39 Min Completed 01/10/2021 36369 Admin Patient Focused Health Ris k Assessment Instrument Completed 01/10/2021 45372 Brief Emotional/Beha v Assessment W/ Scoring Doc Per Standard Inst Completed Medical Devices Description No Information Available Encounters Description No Information Available Assessments Date Code Description Provider 02/01/2021 R73.03 Prediabetes Tanya Nevills, F ENERGY TECHNICIAN 02/01/2021 E78.00 Pure hypercholesterolemia, unspe cified Tanya Nevills, [employer] 02/01/2021 F41.9 Anxiety disorder, unspecified Ka og Nevills, [employer] 02/01/2021 J45.998 Other asthma Tanya Nevills, F ENERGY TECHNICIAN 02/01/2021 Z79.899 Other terminal press operator (current) drug t herapy Tanya Nevills, [employer] 01/10/2021 R73.03 Prediabetes Tanya Nevills, F ENERGY TECHNICIAN 01/10/2021 E78.00 Pure hypercholesterolemia, unspe cified Tanya Nevills, [employer] 01/10/2021 F41.9 Anxiety disorder, unspecified Ka og Nevills, [employer] 01/10/2021 J45.998 Other asthma Tanya Nevills, F ENERGY TECHNICIAN 01/10/2021 E66.9 Obesity, unspecified Tanya Nevil ls, [employer] 01/10/2021 Z79.899 Other terminal press operator (current) drug t herapy Tanya Nevills, [employer] 08/14/2020 R73.03 Prediabetes Tanya Nevills, F ENERGY TECHNICIAN 08/14/2020 F41.9 Anxiety disorder, unspecified Ka og Nevills, [employer] 08/14/2020 E78.00 Pure hypercholesterolemia, unspe cified Tanya Nevills, [employer] 08/14/2020 E66.9 Obesity, unspecified Tanya Nevil ls, [employer] 08/14/2020 J45.998 Other asthma Tanya Nevills, F ENERGY TECHNICIAN 08/14/2020 Z79.899 Other residential (current) drug t herapy Tanya Nevills, [employer] Plan of Treatment 02/01/2021 - Tanya Nevills, [employer]* R73.03 Prediabetes* New Labs:* Comprehensive Metabolic Panel, Scheduled: 01/14/22 * CBC W/Automated Diff, Scheduled: 01/14/22 * Hgba1c, Scheduled: 01/14/22 * TSH Highly Sensitive, Scheduled: 01/14/22 * Cve Panel, Scheduled: 01/14/22 * Comments:* Her laboratory reports were reviewed in detail. Fasting glucose high at 122 with an A1c at 6.1Patient will benefit from maintaining a diabetic diet and a regular exercise regimen. Discussed decrease in sugar intake;No sugared drinksDo not keep sugar out where it can be readily usedNo concentrated sweets or baked goodsChoose fruits or vegetable snacksIncrease water intake.We will continue to monitor. * E78.00 Pure hypercholesterolemia, unspecified* New Labs:* Comprehensive Metabolic Panel, Scheduled: 01/14/22 * Hgba1c, Scheduled: 01/14/22 * TSH Highly Sensitive, Scheduled: 01/14/22 * Cve Panel, Scheduled: 01/14/22 * Comments:* Her laboratory reports were reviewed in detail.Lipid panel showed:CHOL at 133.TRG at 53.HDL at 40.LDL at 82.She was encouraged to maintain a low cholesterol diet and a regular exercise regimen. We will continue to monitor. * Follow up:* FU in 3 months, fasting labs a week prior. * F41.9 Anxiety disorder, unspecified* Comments:* The patient is relatively doing well on current regimen without any adverse effects, will continue the same. We will continue to monitor. * J45.998 Other asthma* Comments:* Currently stable.To continue current medication and plan of care.We will continue to monitor. * Z79.899 Other residential (current) drug therapy* New Labs:* Comprehensive Metabolic Panel, Scheduled: 01/14/22 * CBC W/Automated Diff, Scheduled: 01/14/22 * Hgba1c, Scheduled: 01/14/22 * TSH Highly Sensitive, Scheduled: 01/14/22 * Cve Panel, Scheduled: 01/14/22 * Comments:* Patient to continue to follow the current plan of care and to look for any new or worsening symptoms. We will continue to monitor through periodic blood work. * Follow up:* FU in 3 months, fasting labs a week prior. Functional Status Description No Information Available Mental Status Description No Information Available Referrals Refer to Reason for Referral Status Appt Date Rusty Austin Patient requesting referral for evaluation of gastric bypass. Thank you! Sent [address] [place] [address] [phone]
--- OUTSIDE RECORDS SUMMARY | 2021-02-27 01:24 | CCD | Continuity of Care Document ---
Author Author Matilde DAY SENIOR EDUCATION SPECIALIST Organization Unknown Address [address] [place] [address] Phone [phone] Care Team Providers Care Production Finisher Name Role Phone Tanya Day AUTM [phone] Problems Active Problems Provider Date Asthma without [...] CPT Code Status Date Vaccine Lot # [id number] Given 01/10/2021 Influenza (>= 6 Months) P.F. Vaccine [id number] 25178 Given 02/18/2020 Influenza (>= 6 Months) P.F. Vaccine [id number] 16290 Given 07/12/2019 Tdap (Boostrix/[place] [address] Given 07/12/2019 Tdap (Boostrix/Adacel) Vacci ne Q2038 Given 01/18/2015 Influenza Vaccine (Fluzone) Administered Age 3 And Older 75027 Given 01/18/2015 Tdap (Boostrix/[place] [address] Given 10/26/2013 Tdap (Boostrix/Adacel) Vacci ne Vital [...] H/L Range Note Comprehensive Metabolic Panel 01/10/2021 [facility] Comprehensive Metabo (SEE NOTE) 1, 2 Sodium [...] >60 mL/min 3 CBC W/Automated Diff 01/10/2021 [facility] CBC W/Automated Diff (SEE NOTE) 4 WBC [...] 80.0 Lymph 27.7 % 25.0 - 40.0 [place] 6.7 % 3.0 - 8.0 Eos 4.9 % 0.0 - 7.0 Baso 0.7 % 0.0 - 2.5 %Ig 0.3 % High 0.0 - 0.0 %NRBC 0.0 % 0.0 - 0.0 #Neut 3.66 10^3/uL 2.00 - 6.90 #Lymph 1.70 10^3/uL 0.60 - 3.40 #[place] 0.41 10^3/uL 0.00 - 0.90 #Eos 0.30 10^3/uL 0.00 - 0.70 #Baso 0.04 10^3/uL 0.00 - 0.20 #Ig 0.02 10^3/uL 0.00 - 0.10 #NRBC 0.00 10^3/uL 0.00 - 0.00 Manual Diff NOT INDICATED RBC Morph NOT INDICATED Laboratory test finding 01/10/2021 [facility] Hgba1c 6.1 % 4.4 - 6.1 TSH Highly Sensitive 0.53 uIU/mL 0.47 - 5.01 Cve Panel 01/10/2021 [facility] Cve Panel (SEE NOTE) 5 Cholesterol 133 [...] 6.14 Procedures Date Code Description Status 01/10/2021 92343 Office/Outpatient Established Mo d MDM 30-39 Min Completed 01/10/2021 46779 Admin Patient Focused Health Ris k Assessment Instrument Completed 01/10/2021 14011 Brief Emotional/Beha v Assessment W/ Scoring Doc Per Standard Inst Completed Medical Devices Description No Information Available Encounters Description No Information Available Assessments Date Code Description Provider 02/01/2021 R73.03 Prediabetes Tanya Nevills, F AIRFRAME AND POWERPLANT MECHANIC 02/01/2021 E78.00 Pure hypercholesterolemia, unspe cified Tanya Nevills, SENIOR EDUCATION SPECIALIST 02/01/2021 F41.9 Anxiety disorder, unspecified Ka og Nevills, SENIOR EDUCATION SPECIALIST 02/01/2021 J45.998 Other asthma Tanya Nevills, F AIRFRAME AND POWERPLANT MECHANIC 02/01/2021 Z79.899 Other long term care pharmacist (current) drug t herapy Tanya Nevills, SENIOR EDUCATION SPECIALIST 01/10/2021 R73.03 Prediabetes Tanya Nevills, F AIRFRAME AND POWERPLANT MECHANIC 01/10/2021 E78.00 Pure hypercholesterolemia, unspe cified Tanya Nevills, SENIOR EDUCATION SPECIALIST 01/10/2021 F41.9 Anxiety disorder, unspecified Ka og Nevills, SENIOR EDUCATION SPECIALIST 01/10/2021 J45.998 Other asthma Tanya Nevills, F AIRFRAME AND POWERPLANT MECHANIC 01/10/2021 E66.9 Obesity, unspecified Tanya Nevil ls, SENIOR EDUCATION SPECIALIST 01/10/2021 Z79.899 Other long term care pharmacist (current) drug t herapy Tanya Nevills, SENIOR EDUCATION SPECIALIST 08/14/2020 R73.03 Prediabetes Tanya Nevills, F AIRFRAME AND POWERPLANT MECHANIC 08/14/2020 F41.9 Anxiety disorder, unspecified Ka og Nevills, SENIOR EDUCATION SPECIALIST 08/14/2020 E78.00 Pure hypercholesterolemia, unspe cified Tanya Nevills, SENIOR EDUCATION SPECIALIST 08/14/2020 E66.9 Obesity, unspecified Tanya Nevil ls, SENIOR EDUCATION SPECIALIST 08/14/2020 J45.998 Other asthma Tanya Nevills, F AIRFRAME AND POWERPLANT MECHANIC 08/14/2020 Z79.899 Other halfway (current) drug t herapy Tanya Nevills, SENIOR EDUCATION SPECIALIST Plan of Treatment 02/01/2021 - Tanya Nevills, SENIOR EDUCATION SPECIALIST* R73.03 Prediabetes* New Labs:* Comprehensive Metabolic Panel, [...] will continue to monitor. * Z79.899 Other halfway (current) drug therapy* New Labs:* Comprehensive Metabolic [...] evaluation of gastric bypass. Thank you! Sent [address] [place] [address] [phone]
--- OUTSIDE RECORDS SUMMARY | 2021-02-27 01:24 | CCD | Continuity of Care Document ---
Author Author Matilde DAY COMMUNITY AIDE Organization Unknown Address [address] [place] [address] Phone [phone] Care Team Providers Care Small Engine Specialist Name Role Phone Tanya Day AUTM [phone] Problems Active Problems Provider Date Asthma without [...] CPT Code Status Date Vaccine Lot # [id number] Given 01/10/2021 Influenza (>= 6 Months) P.F. Vaccine [id number] 02148 Given 02/18/2020 Influenza (>= 6 Months) P.F. Vaccine [id number] 59557 Given 07/12/2019 Tdap (Boostrix/[place] [address] Given 07/12/2019 Tdap (Boostrix/Adacel) Vacci ne Q2038 Given 01/18/2015 Influenza Vaccine (Fluzone) Administered Age 3 And Older 29527 Given 01/18/2015 Tdap (Boostrix/[place] [address] Given 10/26/2013 Tdap (Boostrix/Adacel) Vacci ne Vital [...] H/L Range Note Comprehensive Metabolic Panel 01/10/2021 [facility] Comprehensive Metabo (SEE NOTE) 1, 2 Sodium [...] >60 mL/min 3 CBC W/Automated Diff 01/10/2021 [facility] CBC W/Automated Diff (SEE NOTE) 4 [...] 80.0 Lymph 27.7 % 25.0 - 40.0 [place] 6.7 % 3.0 - 8.0 Eos 4.9 % 0.0 - 7.0 Baso 0.7 % 0.0 - 2.5 %Ig 0.3 % High 0.0 - 0.0 %NRBC 0.0 % 0.0 - 0.0 #Neut 3.66 10^3/uL 2.00 - 6.90 #Lymph 1.70 10^3/uL 0.60 - 3.40 #[place] 0.41 10^3/uL 0.00 - 0.90 #Eos 0.30 10^3/uL 0.00 - 0.70 #Baso 0.04 10^3/uL 0.00 - 0.20 #Ig 0.02 10^3/uL 0.00 - 0.10 #NRBC 0.00 10^3/uL 0.00 - 0.00 Manual Diff NOT INDICATED RBC Morph NOT INDICATED Laboratory test finding 01/10/2021 [facility] Hgba1c 6.1 % 4.4 - 6.1 TSH Highly Sensitive 0.53 uIU/mL 0.47 - 5.01 Cve Panel 01/10/2021 [facility] Cve Panel (SEE NOTE) 5 Cholesterol [...] 6.14 Procedures Date Code Description Status 01/10/2021 12535 Office/Outpatient Established Mo d MDM 30-39 Min Completed 01/10/2021 16093 Admin Patient Focused Health Ris k Assessment Instrument Completed 01/10/2021 30579 Brief Emotional/Beha v Assessment W/ Scoring Doc Per Standard Inst Completed Medical Devices Description No Information Available Encounters Description No Information Available Assessments Date Code Description Provider 02/01/2021 R73.03 Prediabetes Tanya Nevills, F ENVIRONMENTAL PLANNING ENGINEER 02/01/2021 E78.00 Pure hypercholesterolemia, unspe cified Tanya Nevills, COMMUNITY AIDE 02/01/2021 F41.9 Anxiety disorder, unspecified Ka og Nevills, COMMUNITY AIDE 02/01/2021 J45.998 Other asthma Tanya Nevills, F ENVIRONMENTAL PLANNING ENGINEER 02/01/2021 Z79.899 Other extermination inspector (current) drug t herapy Tanya Nevills, COMMUNITY AIDE 01/10/2021 R73.03 Prediabetes Tanya Nevills, F ENVIRONMENTAL PLANNING ENGINEER 01/10/2021 E78.00 Pure hypercholesterolemia, unspe cified Tanya Nevills, COMMUNITY AIDE 01/10/2021 F41.9 Anxiety disorder, unspecified Ka og Nevills, COMMUNITY AIDE 01/10/2021 J45.998 Other asthma Tanya Nevills, F ENVIRONMENTAL PLANNING ENGINEER 01/10/2021 E66.9 Obesity, unspecified Tanya Nevil ls, COMMUNITY AIDE 01/10/2021 Z79.899 Other extermination inspector (current) drug t herapy Tanya Nevills, COMMUNITY AIDE 08/14/2020 R73.03 Prediabetes Tanya Nevills, F ENVIRONMENTAL PLANNING ENGINEER 08/14/2020 F41.9 Anxiety disorder, unspecified Ka og Nevills, COMMUNITY AIDE 08/14/2020 E78.00 Pure hypercholesterolemia, unspe cified Tanya Nevills, COMMUNITY AIDE 08/14/2020 E66.9 Obesity, unspecified Tanya Nevil ls, COMMUNITY AIDE 08/14/2020 J45.998 Other asthma Tanya Nevills, F ENVIRONMENTAL PLANNING ENGINEER 08/14/2020 Z79.899 Other detention (current) drug t herapy Tanya Nevills, COMMUNITY AIDE Plan of Treatment 02/01/2021 - Tanya Nevills, COMMUNITY AIDE* R73.03 Prediabetes* New Labs:* Comprehensive Metabolic Panel, [...] will continue to monitor. * Z79.899 Other detention (current) drug therapy* New Labs:* Comprehensive Metabolic [...] evaluation of gastric bypass. Thank you! Sent [address] [place] [address] [phone]
--- OUTSIDE RECORDS SUMMARY | 2021-02-27 01:25 | CCD | Continuity of Care Document ---
Author Author Matilde DAY GAS PRODUCER Organization Unknown Address [address] [place] [address] Phone [phone] Care Team Providers Care Central Office Trouble Shooter Name Role Phone Tanya Day AUTM [phone] Problems Active Problems Provider Date Asthma without [...] day Recreational Drug Use Denies Drug Use Allergies, Adverse Reactions, Alerts Active Allergies Criticality Reaction | Severity Comments [...] CPT Code Status Date Vaccine Lot # [id number] Given 01/10/2021 Influenza (>= 6 Months) P.F. Vaccine [id number] 70573 Given 02/18/2020 Influenza (>= 6 Months) P.F. Vaccine [id number] 50323 Given 07/12/2019 Tdap (Boostrix/[place]) [place] [address] Given 07/12/2019 Tdap (Boostrix/Adacel) Vacci ne Q2038 Given 01/18/2015 Influenza Vaccine (Fluzone) Administered Age 3 And Older 77727 Given 01/18/2015 Tdap (Boostrix/[place] [address] Given 10/26/2013 Tdap (Boostrix/Adacel) Vacci ne Vital [...] H/L Range Note Comprehensive Metabolic Panel 01/10/2021 [facility] Comprehensive Metabo (SEE NOTE) 1, 2 [...] >60 mL/min 3 CBC W/Automated Diff 01/10/2021 [facility] CBC W/Automated Diff (SEE NOTE) 4 [...] 80.0 Lymph 27.7 % 25.0 - 40.0 [place] 6.7 % 3.0 - 8.0 Eos 4.9 % 0.0 - 7.0 Baso 0.7 % 0.0 - 2.5 %Ig 0.3 % High 0.0 - 0.0 %NRBC 0.0 % 0.0 - 0.0 #Neut 3.66 10^3/uL 2.00 - 6.90 #Lymph 1.70 10^3/uL 0.60 - 3.40 #[place] 0.41 10^3/uL 0.00 - 0.90 #Eos 0.30 10^3/uL 0.00 - 0.70 #Baso 0.04 10^3/uL 0.00 - 0.20 #Ig 0.02 10^3/uL 0.00 - 0.10 #NRBC 0.00 10^3/uL 0.00 - 0.00 Manual Diff NOT INDICATED RBC Morph NOT INDICATED Laboratory test finding 01/10/2021 [facility] Hgba1c 6.1 % 4.4 - 6.1 TSH Highly Sensitive 0.53 uIU/mL 0.47 - 5.01 1 Is patient fasting? N 2 COMPREHENSIVE METABOLIC PANE L 3 Male [...] >32 mL/min Normal 4 COMPLETE BLOOD COUNT Procedures Date Code Description Status 01/10/2021 12351 Office/Outpatient Established Mo d MDM 30-39 Min Completed 01/10/2021 70930 Admin Patient Focused Health Ris k Assessment Instrument Completed 01/10/2021 35318 Brief Emotional/Beha v Assessment W/ Scoring Doc Per Standard Inst Completed Medical Devices Description No Information Available Encounters Type Date Location Provider Dx Diagnosis Office Visit 01/10/2021 10:20a [facility] DESMOND Joyce R73.03 Prediabetes E78.00 Pure hypercholesterolemia, u nspecified F41.9 Anxiety disorder, unspecifie d J45.998 Other asthma E66.9 Obesity, unspecified Z79.899 Other skilled nursing (current) dr leblanc therapy Assessments Date Code Description Provider 01/10/2021 R73.03 Prediabetes Tanya Nevills, F DATA WAREHOUSE ARCHITECT 01/10/2021 E78.00 Pure hypercholesterolemia, unspe cified Tanya Nevills, GAS PRODUCER 01/10/2021 F41.9 Anxiety disorder, unspecified Ka og Nevills, GAS PRODUCER 01/10/2021 J45.998 Other asthma Tanya Nevills, F DATA WAREHOUSE ARCHITECT 01/10/2021 E66.9 Obesity, unspecified Tanya Nevil ls, GAS PRODUCER 01/10/2021 Z79.899 Other skilled nursing (current) drug t herapy Tanya Nevills, GAS PRODUCER 08/14/2020 R73.03 Prediabetes Tanya Nevills, F DATA WAREHOUSE ARCHITECT 08/14/2020 F41.9 Anxiety disorder, unspecified Ka og Nevills, GAS PRODUCER 08/14/2020 E78.00 Pure hypercholesterolemia, unspe cified Tanya Nevills, GAS PRODUCER 08/14/2020 E66.9 Obesity, unspecified Tanya Nevil ls, GAS PRODUCER 08/14/2020 J45.998 Other asthma Tanya Nevills, F DATA WAREHOUSE ARCHITECT 08/14/2020 Z79.899 Other buttermaker helper (current) drug t herapy Tanya Nevills, GAS PRODUCER Plan of Treatment Future Appointment(s):* 02/01/2021 9:40 am - DESMOND Carlson at [facility] Functional Status Description No Information Available Mental Status Description No Information Available Referrals Refer to Dr Reason for Referral Status Appt Date Rusty Austin Patient requesting referral for evaluation of gastric bypass. Thank you! Sent [address] [place], [place] [address] [phone]
--- OUTSIDE RECORDS SUMMARY | 2021-02-27 01:25 | CCD | Continuity of Care Document ---
Author Author Matilde DAY HAND GLASS CUTTER Organization Unknown Address [address] [place] [address] Phone [phone] Care Team Providers Care Breeding Technician Name Role Phone Tanya Day AUTM [phone] Problems Active Problems Provider Date Asthma without [...] CPT Code Status Date Vaccine Lot # 15937 Given 01/10/2021 Influenza (>= 6 Months) P.F. Vaccine [id number] 88944 Given 02/18/2020 Influenza (>= 6 Months) P.F. Vaccine [id number] 36583 Given 07/12/2019 Tdap (Boostrix/[place] [address] Given 07/12/2019 Tdap (Boostrix/Adacel) Vacci ne Q2038 Given 01/18/2015 Influenza Vaccine (Fluzone) Administered Age 3 And Older 60643 Given 01/18/2015 Tdap (Boostrix/[place] [address] Given 10/26/2013 Tdap (Boostrix/Adacel) Vacci ne Vital [...] Date Facility Test Result H/L Range Note CBC W/Automated Diff 01/10/2021 [facility] CBC W/Automated Diff (SEE NOTE) 1 WBC 6.1 10^3/uL 4.2 - 11.0 RBC [...] 80.0 Lymph 27.7 % 25.0 - 40.0 [place] 6.7 % 3.0 - 8.0 Eos 4.9 % 0.0 - 7.0 Baso 0.7 % 0.0 - 2.5 %Ig 0.3 % High 0.0 - 0.0 %NRBC 0.0 % 0.0 - 0.0 #Neut 3.66 10^3/uL 2.00 - 6.90 #Lymph 1.70 10^3/uL 0.60 - 3.40 #[place] 0.41 10^3/uL 0.00 - 0.90 #Eos 0.30 10^3/uL 0.00 - 0.70 #Baso 0.04 10^3/uL 0.00 - 0.20 #Ig 0.02 10^3/uL 0.00 - 0.10 #NRBC 0.00 10^3/uL 0.00 - 0.00 Manual Diff NOT INDICATED RBC Morph NOT INDICATED Laboratory test finding 01/10/2021 [facility] l Hgba1c 6.1 % 4.4 - 6.1 1 COMPLETE BLOOD COUNT Procedures Date Code Description Status 01/10/2021 05908 Office/Outpatient Established Mo d MDM 30-39 Min Completed 01/10/2021 85217 Admin Patient Focused Health Ris k Assessment Instrument Completed 01/10/2021 65057 Brief Emotional/Beha v Assessment W/ Scoring Doc Per Standard Inst Completed Medical Devices Description No Information Available Encounters Type Date Location Provider Dx Diagnosis Office Visit 01/10/2021 10:20a [facility] Tanya cardenas, HAND GLASS CUTTER R73.03 Prediabetes E78.00 Pure hypercholesterolemia, u nspecified F41.9 Anxiety disorder, unspecifie d J45.998 Other asthma E66.9 Obesity, unspecified Z79.899 Other fpc (current) dr ug therapy Assessments Date Code Description Provider 01/10/2021 R73.03 Prediabetes Tanya Nevills, F SAFEKEEPING CLERK 01/10/2021 E78.00 Pure hypercholesterolemia, unspe cified Tanya Nevills, HAND GLASS CUTTER 01/10/2021 F41.9 Anxiety disorder, unspecified Ka og Nevills, HAND GLASS CUTTER 01/10/2021 J45.998 Other asthma Tanya Nevills, F SAFEKEEPING CLERK 01/10/2021 E66.9 Obesity, unspecified Tanya Nevil ls, HAND GLASS CUTTER 01/10/2021 Z79.899 Other fpc (current) drug t herapy Tanya Nevills, HAND GLASS CUTTER 08/14/2020 R73.03 Prediabetes Tanya Nevills, F SAFEKEEPING CLERK 08/14/2020 F41.9 Anxiety disorder, unspecified Ka og Nevills, HAND GLASS CUTTER 08/14/2020 E78.00 Pure hypercholesterolemia, unspe cified Tanya Nevills, HAND GLASS CUTTER 08/14/2020 E66.9 Obesity, unspecified Tanya Nevil ls, HAND GLASS CUTTER 08/14/2020 J45.998 Other asthma Tanya Nevills, F SAFEKEEPING CLERK 08/14/2020 Z79.899 Other fpc (current) drug t herapy Tanya Nevills, HAND GLASS CUTTER Plan of Treatment Future Appointment(s):* 02/01/2021 9:40 am - Tanya Day, HAND GLASS CUTTER at [facility] Functional Status Description No Information Available Mental Status Description No Information Available Referrals Refer to Reason for Referral Status Appt Date Rusty Austin Patient requesting referral for evaluation of gastric bypass. Thank you! Sent [address] [place] [address] [phone]
--- OUTSIDE RECORDS SUMMARY | 2021-02-27 01:25 | CCD | Continuity of Care Document ---
Author Author Matilde DAY GATEKEEPER Organization Unknown Address [address] [place] [address] Phone [phone] Care Team Providers Care Pipe Finishing Supervisor Name Role Phone Tanya Day AUTM [phone] Problems Active Problems Provider Date Asthma without [...] CPT Code Status Date Vaccine Lot # [id number] Given 01/10/2021 Influenza (>= 6 Months) P.F. Vaccine QT164 44979 Given 02/18/2020 Influenza (>= 6 Months) P.F. Vaccine [id number] 77162 Given 07/12/2019 Tdap (Boostrix/[place] [address] Given 07/12/2019 Tdap (Boostrix/Adacel) Vacci ne Q2038 Given 01/18/2015 Influenza Vaccine (Fluzone) Administered Age 3 And Older 56229 Given 01/18/2015 Tdap (Boostrix/[place] [address] Given 10/26/2013 Tdap (Boostrix/Adacel) Vacci ne Vital [...] H/L Range Note CBC W/Automated Diff 01/10/2021 [facility] CBC W/Automated Diff (SEE NOTE) 1 WBC [...] 80.0 Lymph 27.7 % 25.0 - 40.0 [place] 6.7 % 3.0 - 8.0 Eos 4.9 % 0.0 - 7.0 Baso 0.7 % 0.0 - 2.5 %Ig 0.3 % High 0.0 - 0.0 %NRBC 0.0 % 0.0 - 0.0 #Neut 3.66 10^3/uL 2.00 - 6.90 #Lymph 1.70 10^3/uL 0.60 - 3.40 #[place] 0.41 10^3/uL 0.00 - 0.90 #Eos 0.30 10^3/uL 0.00 - 0.70 #Baso 0.04 10^3/uL 0.00 - 0.20 #Ig 0.02 10^3/uL 0.00 - 0.10 #NRBC 0.00 10^3/uL 0.00 - 0.00 Manual Diff NOT INDICATED RBC Morph NOT INDICATED Laboratory test finding 01/10/2021 [facility] l Hgba1c 6.1 % 4.4 - 6.1 1 COMPLETE BLOOD COUNT Procedures Date Code Description Status 01/10/2021 74424 Office/Outpatient Established Mo d MDM 30-39 Min Completed 01/10/2021 07421 Admin Patient Focused Health Ris k Assessment Instrument Completed 01/10/2021 26554 Brief Emotional/Beha v Assessment W/ Scoring Doc Per Standard Inst Completed Medical Devices Description No Information Available Encounters Type Date Location Provider Dx Diagnosis Office Visit 01/10/2021 10:20a [facility] Tanya cardenas, GATEKEEPER R73.03 Prediabetes E78.00 Pure hypercholesterolemia, u nspecified F41.9 Anxiety disorder, unspecifie d J45.998 Other asthma E66.9 Obesity, unspecified Z79.899 Other fpc (current) dr ug therapy Assessments Date Code Description Provider 01/10/2021 R73.03 Prediabetes Tanya Nevills, F MAIL FORWARDING SYSTEM MARKUP CLERK 01/10/2021 E78.00 Pure hypercholesterolemia, unspe cified Tanya Nevills, GATEKEEPER 01/10/2021 F41.9 Anxiety disorder, unspecified Ka og Nevills, GATEKEEPER 01/10/2021 J45.998 Other asthma Tanya Nevills, F MAIL FORWARDING SYSTEM MARKUP CLERK 01/10/2021 E66.9 Obesity, unspecified Tanya Nevil ls, GATEKEEPER 01/10/2021 Z79.899 Other fpc (current) drug t herapy Tanya Nevills, GATEKEEPER 08/14/2020 R73.03 Prediabetes Tanya Nevills, F MAIL FORWARDING SYSTEM MARKUP CLERK 08/14/2020 F41.9 Anxiety disorder, unspecified Ka og Nevills, GATEKEEPER 08/14/2020 E78.00 Pure hypercholesterolemia, unspe cified Tanya Nevills, GATEKEEPER 08/14/2020 E66.9 Obesity, unspecified Tanya Nevil ls, GATEKEEPER 08/14/2020 J45.998 Other asthma Tanya Nevills, F MAIL FORWARDING SYSTEM MARKUP CLERK 08/14/2020 Z79.899 Other fpc (current) drug t herapy Tanya Nevills, GATEKEEPER Plan of Treatment Future Appointment(s):* 02/01/2021 9:40 am - Tanya Day, GATEKEEPER at [facility] Functional Status Description No Information Available Mental Status Description No Information Available Referrals Refer to Reason for Referral Status Appt Date Rusty Austin Patient requesting referral for evaluation of gastric bypass. Thank you! Sent [address] [place] [address] [phone]
--- OUTSIDE RECORDS SUMMARY | 2021-02-27 01:25 | CCD | Continuity of Care Document ---
Author Author Matilde DAY INDEPENDENT AGENT MUSIC EDUCATION Organization Unknown Address [address] [place] [address] Phone [phone] Care Team Providers Care Proof Passer Name Role Phone Tanya Day AUTM [phone] Problems Active Problems Provider Date Asthma without [...] CPT Code Status Date Vaccine Lot # 56024 Given 01/10/2021 Influenza (>= 6 Months) P.F. Vaccine [id number] 00510 Given 02/18/2020 Influenza (>= 6 Months) P.F. Vaccine [id number] 26854 Given 07/12/2019 Tdap (Boostrix/[place] [address] Given 07/12/2019 Tdap (Boostrix/Adacel) Vacci ne Q2038 Given 01/18/2015 Influenza Vaccine (Fluzone) Administered Age 3 And Older 63962 Given 01/18/2015 Tdap (Boostrix/[place] [address] Given 10/26/2013 Tdap (Boostrix/Adacel) Vacci ne Vital [...] H/L Range Note CBC W/Automated Diff 01/10/2021 [facility] CBC W/Automated Diff (SEE NOTE) [...] 80.0 Lymph 27.7 % 25.0 - 40.0 [place] 6.7 % 3.0 - 8.0 Eos 4.9 % 0.0 - 7.0 Baso 0.7 % 0.0 - 2.5 %Ig 0.3 % High 0.0 - 0.0 %NRBC 0.0 % 0.0 - 0.0 #Neut 3.66 10^3/uL 2.00 - 6.90 #Lymph 1.70 10^3/uL 0.60 - 3.40 #[place] 0.41 10^3/uL 0.00 - 0.90 #Eos 0.30 10^3/uL 0.00 - 0.70 #Baso 0.04 10^3/uL 0.00 - 0.20 #Ig 0.02 10^3/uL 0.00 - 0.10 #NRBC 0.00 10^3/uL 0.00 - 0.00 Manual Diff NOT INDICATED RBC Morph NOT INDICATED Laboratory test finding 01/10/2021 [facility] l Hgba1c 6.1 % 4.4 - 6.1 1 COMPLETE BLOOD COUNT Procedures Date Code Description Status 01/10/2021 58295 Office/Outpatient Established Mo d MDM 30-39 Min Completed 01/10/2021 61289 Admin Patient Focused Health Ris k Assessment Instrument Completed 01/10/2021 68934 Brief Emotional/Beha v Assessment W/ Scoring Doc Per Standard Inst Completed Medical Devices Description No Information Available Encounters Type Date Location Provider Dx Diagnosis Office Visit 01/10/2021 10:20a [facility] Tanya cardenas, INDEPENDENT AGENT MUSIC EDUCATION R73.03 Prediabetes E78.00 Pure hypercholesterolemia, u nspecified F41.9 Anxiety disorder, unspecifie d J45.998 Other asthma E66.9 Obesity, unspecified Z79.899 Other shelter (current) dr ug therapy Assessments Date Code Description Provider 01/10/2021 R73.03 Prediabetes Tanya Nevills, F PRODUCTION CONTROL SPECIALIST 01/10/2021 E78.00 Pure hypercholesterolemia, unspe cified Tanya Nevills, INDEPENDENT AGENT MUSIC EDUCATION 01/10/2021 F41.9 Anxiety disorder, unspecified Ka go Nevills, INDEPENDENT AGENT MUSIC EDUCATION 01/10/2021 J45.998 Other asthma Tanya Nevills, F PRODUCTION CONTROL SPECIALIST 01/10/2021 E66.9 Obesity, unspecified Tanya Nevil ls, INDEPENDENT AGENT MUSIC EDUCATION 01/10/2021 Z79.899 Other shelter (current) drug t herapy Tanya Nevills, INDEPENDENT AGENT MUSIC EDUCATION 08/14/2020 R73.03 Prediabetes Tanya Nevills, F PRODUCTION CONTROL SPECIALIST 08/14/2020 F41.9 Anxiety disorder, unspecified Ka og Nevills, INDEPENDENT AGENT MUSIC EDUCATION 08/14/2020 E78.00 Pure hypercholesterolemia, unspe cified Tanya Nevills, INDEPENDENT AGENT MUSIC EDUCATION 08/14/2020 E66.9 Obesity, unspecified Tanya Nevil ls, INDEPENDENT AGENT MUSIC EDUCATION 08/14/2020 J45.998 Other asthma Tanya Nevills, F PRODUCTION CONTROL SPECIALIST 08/14/2020 Z79.899 Other shelter (current) drug t herapy Tanya Nevills, INDEPENDENT AGENT MUSIC EDUCATION Plan of Treatment Future Appointment(s):* 02/01/2021 9:40 am - Tanya Day, INDEPENDENT AGENT MUSIC EDUCATION at [facility] Functional Status Description No Information Available Mental Status Description No Information Available Referrals Refer to Reason for Referral Status Appt Date Rusty Austin Patient requesting referral for evaluation of gastric bypass. Thank you! Sent [address] [place] [address] [phone]
--- OUTSIDE RECORDS SUMMARY | 2021-02-27 01:25 | CCD ---
Continuity of Care Document (CCD) Created on: 01/11/2021 Matilde Lopes External Reference #: [id number] : 1990 Sex: Female Author Author Matilde DAY ADMINISTRATIVE EXECUTIVE Organization Unknown Address [address] [place] [address] Phone [phone] Care Team Providers Care Imaging Administrator Name Role Phone Tanya Day AUTM [phone] Problems Active Problems Provider Date Asthma without [...] CPT Code Status Date Vaccine Lot # [id number] Given 01/10/2021 Influenza (>= 6 Months) P.F. Vaccine [id number] 31267 Given 02/18/2020 Influenza (>= 6 Months) P.F. Vaccine [id number] 65493 Given 07/12/2019 Tdap (Boostrix/[place] [address] Given 07/12/2019 Tdap (Boostrix/Adacel) Vacci ne [id number] Given 01/18/2015 Influenza Vaccine (Fluzone) Administered Age 3 And Older 146[address] Given 01/18/2015 Tdap (Boostrix/[place] [address] Given 10/26/2013 Tdap (Boostrix/Adacel) Vacci ne Vital [...] H/L Range Note Comprehensive Metabolic Panel 01/10/2021 [facility] Comprehensive Metabo (SEE NOTE) 1, 2 [...] >60 mL/min 3 CBC W/Automated Diff 01/10/2021 [facility] CBC W/Automated Diff (SEE NOTE) 4 [...] 80.0 Lymph 27.7 % 25.0 - 40.0 [place] 6.7 % 3.0 - 8.0 Eos 4.9 % 0.0 - 7.0 Baso 0.7 % 0.0 - 2.5 %Ig 0.3 % High 0.0 - 0.0 %NRBC 0.0 % 0.0 - 0.0 #Neut 3.66 10^3/uL 2.00 - 6.90 #Lymph 1.70 10^3/uL 0.60 - 3.40 #[place] 0.41 10^3/uL 0.00 - 0.90 #Eos 0.30 10^3/uL 0.00 - 0.70 #Baso 0.04 10^3/uL 0.00 - 0.20 #Ig 0.02 10^3/uL 0.00 - 0.10 #NRBC 0.00 10^3/uL 0.00 - 0.00 Manual Diff NOT INDICATED RBC Morph NOT INDICATED Laboratory test finding 01/10/2021 [facility] Hgba1c 6.1 % 4.4 - 6.1 TSH Highly Sensitive 0.53 uIU/mL 0.47 - 5.01 Cve Panel 01/10/2021 [facility] Cve Panel (SEE NOTE) 5 Cholesterol [...] 6.14 Procedures Date Code Description Status 01/10/2021 78442 Office/Outpatient Established Mo d MDM 30-39 Min Completed 01/10/2021 09108 Admin Patient Focused Health Ris k Assessment Instrument Completed 01/10/2021 21319 Brief Emotional/Beha v Assessment W/ Scoring Doc Per Standard Inst Completed Medical Devices Description No Information Available Encounters Type Date Location Provider Dx Diagnosis Office Visit 01/10/2021 10:20a [facility] Tanya cardenas, ADMINISTRATIVE EXECUTIVE R73.03 Prediabetes E78.00 Pure hypercholesterolemia, u nspecified F41.9 Anxiety disorder, unspecifie d J45.998 Other asthma E66.9 Obesity, unspecified Z79.899 Other long wall shear operator (current) dr deana therapy Assessments Date Code Description Provider 01/10/2021 R73.03 Prediabetes Tanya Nevills, F AMMONIA REFRIGERATION TECHNICIAN 01/10/2021 E78.00 Pure hypercholesterolemia, unspe cified Tanya Nevills, ADMINISTRATIVE EXECUTIVE 01/10/2021 F41.9 Anxiety disorder, unspecified Ka og Nevills, ADMINISTRATIVE EXECUTIVE 01/10/2021 J45.998 Other asthma Tanya Nevills, F AMMONIA REFRIGERATION TECHNICIAN 01/10/2021 E66.9 Obesity, unspecified Tanya Nevil ls, ADMINISTRATIVE EXECUTIVE 01/10/2021 Z79.899 Other long wall shear operator (current) drug t herapy Tanya Nevills, ADMINISTRATIVE EXECUTIVE 08/14/2020 R73.03 Prediabetes Tanya Nevills, F AMMONIA REFRIGERATION TECHNICIAN 08/14/2020 F41.9 Anxiety disorder, unspecified Ka og Nevills, ADMINISTRATIVE EXECUTIVE 08/14/2020 E78.00 Pure hypercholesterolemia, unspe cified Tanya Nevills, ADMINISTRATIVE EXECUTIVE 08/14/2020 E66.9 Obesity, unspecified Tanya Nevil ls, ADMINISTRATIVE EXECUTIVE 08/14/2020 J45.998 Other asthma Tanya Nevills, F AMMONIA REFRIGERATION TECHNICIAN 08/14/2020 Z79.899 Other residential (current) drug t herapy Tanya Nevills, ADMINISTRATIVE EXECUTIVE Plan of Treatment Future Appointment(s):* 02/01/2021 9:40 am - Tanya Shay, ADMINISTRATIVE EXECUTIVE at [facility] Functional Status Description No Information Available Mental Status Description No Information Available Referrals Refer to Reason for Referral Status Appt Date Rusty Austin Patient requesting referral for evaluation of gastric bypass. Thank you! Sent [address] [place] [address] [phone]
--- OUTSIDE RECORDS SUMMARY | 2021-02-27 01:25 | CCD | Continuity of Care Document ---
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 Corns and callosities Gama Butler DPM Onset: 04/02/2020 Social History Type Date Description Comments Sex Unknown ETOH Use Rarely consumes alcohol Tobacco Use Start: Unknown Patient is a current smoker, smo kes every day 6 to 8 daily Allergies and adverse reactions Active Allergies Criticality Reaction | Severity Comments Date Amoxicillin Unable to assess criticality hives 03/22/2015 Suprax Unable to assess criticality hives 03/22/2015 Pediazole Unable to assess criticality hives 03/22/2015 Cefzil Unable to assess criticality 03/22/2015 Medications Active Medications SIG Qnty Indications Ordering Provide r Date Urea 40% Cream a pply twice a day to callus 85units Gama Butler DPM 03/24/2020 Neomycin/Polymyxin/Hydrocortisone (Otic) 3.5-78525-6 Solution apply one drop to base of nail after betadine soaks 10ml Gama Bulter DPM 11/06/2016 Ketoconazole 2% Cream apply to feet twice daily 60gm Gama Butler DPM 03/22/2015 Lamisil 250mg Tablets 1 by mouth every day 84tabs Gama Butler DPM 03/22/2015 Valacyclovir HCL 500mg Tablets take 1 tablet by mouth once daily Unknown Azithromycin 250mg Tablets take 4 tablets for 1 dose Unknown Promethazine HCL 25mg Tablets take 1 tablet every 6 hours if needed for nausea Unknow n Immunizations Description No Information Available Vital Signs Date Vital Result Comment 03/24/2020 9:38am Height 66 inches 5'6" Weight 255.00 lb BP Systolic 124 mmHg BP Diastolic 72 mmHg Heart Rate 71 /min BMI (Body Mass Index) 41.2 kg/m2 08/24/2018 10:55am Height 66 inches 5'6" Weight 256.00 lb BP Systolic 124 mmHg BP Diastolic 82 mmHg Heart Rate 80 /min BMI (Body Mass Index) 41.3 kg/m2 Results Description No Information Available Procedures Date Code Description Status 01/08/2021 41052 Office/Outpatient Established SF MDM 10-19 Min Completed 09/29/2020 10977 Office/Outpatient Established SF MDM 10-19 Min Completed Medical Devices Description No Information Available Encounters Type Date Location Provider Dx Diagnosis Office Visit 01/08/2021 8:45a [facility] Gama Butler DPM 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, unsp ankle and foot L84 Corns and callosities Office Visit 09/29/2020 3:15p [facility] Gama Butler DPM 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, unsp ankle and foot L84 Corns and callosities Assessments Date Code Description Provider 01/08/2021 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 Other disorders of c ontinuity of bone, unspecified ankle and foot Gama Butler DPM 01/08/2021 L84 Corns and callosities Gama Butler DPM 09/29/2020 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
[2021-02-27 01:38] VITALS: BP 120/67
--- NOTE | 2021-02-27 06:38 | ECGEPIP ---
[facility] - ED Test Date: 2021-02-26 Pat Name: CEDRICK GROSS Department: Room: - Gender: Female Pasting Inspector: LOIS : 1990 Requested By: MARKUS Arnold Order Number: [id number] Reading MD: Trevon Flynn Measurements Intervals Olive Rate: 65 P: 43 DE: 150 QRS: 69 QRSD: 84 T: 68 QT: 430 QTc: 447 Interpretive Statements Normal sinus rhythm Nonspecific ST T wave changes No prior ECG for comparison Electronically Signed on 02-27-2021 6:38:22 EST by Trevon Flynn
== END 2021-02-27 01:45 | disposition home or self-care (01) ==
LOC: M ED 19:27
DX: E11.65 Type 2 diabetes mellitus with hyperglycemia (principal); J45.909 Unspecified asthma, uncomplicated; F17.200 Nicotine dependence, unspecified, uncomplicated; Z79.899 Other long term (current) drug therapy; Z88.8 Allergy status to other drugs, medicaments and biological substances; Z88.0 Allergy status to penicillin; Z88.1 Allergy status to other antibiotic agents

== ENCOUNTER → 2021-03-27 | Outpatient (REF) | payer OTHER ==
[~2021-03-27] MED LIST changes: +METF500T13 PO
== END ==
LOC: M SFHCWAGY 12:45
PROVIDERS: ATTEND Advanced Practice Midwife
DX: Z12.4 Encounter for screening for malignant neoplasm of cervix (principal)

== ENCOUNTER → 2021-05-03 | Outpatient (REF) | LOC: M LABSMTC 11:46 | PROVIDERS: ATTEND Pediatrics | DX: Z11.52 Encounter for screening for COVID-19 (principal) ==

== ENCOUNTER 2021-05-10 11:09 | Inpatient (IN) | payer OTHER ==
[~2021-05-10] VITALS: Ht 167.6 cm; Wt 85.0 kg
[2021-05-10] MEDS ORDERED: GLYC2TAB18 PO (11:42)
[2021-05-10 12:51] LABS: BASO # 0.1 10^3/uL (0.0-0.2); EOS % 0.6 % (0.0-3.0); HEMATOCRIT 47.7 % (36.0-47.0); HEMOGLOBIN 16.4 g/dl (12.0-15.5); LYMPH # 1.3 10^3/uL (1.5-5.0); LYMPH % 18.4 % (24.0-44.0); MEAN CORPUSCULAR HGB CONC 34.4 g/dl (32.0-36.5); MEAN CORPUSCULAR VOLUME 84.3 fl (80.0-96.0); MONO # 0.9 10^3/uL (0.0-0.8); MONO % 12.5 % (2.0-8.0); NEUTROPHILS # 4.7 10^3/uL (1.5-8.5); NEUTROPHILS % 66.9 % (36.0-66.0); PLATELET COUNT, AUTOMATED 288 10^3/uL (150-450); RED BLOOD COUNT 5.66 10^6/uL (4.00-5.40)
[2021-05-10 13:11] LABS: BLOOD UREA NITROGEN 12 MG/DL (7-18); CALCIUM LEVEL 9.3 MG/DL (8.5-10.1); CARBON DIOXIDE LEVEL 11 MEQ/L (21-32); CHLORIDE LEVEL 104 MEQ/L (98-107); GLOMERULAR FILTRATION RATE > 60.0 (>60); GLUCOSE, FASTING 420 MG/DL (70-100); POTASSIUM SERUM 3.1 MEQ/L (3.5-5.1); SODIUM LEVEL 132 MEQ/L (136-145)
[2021-05-10 13:39] LABS: HEMOGLOBIN A1c 11.6 %
[2021-05-10] MEDS ORDERED: KCL 10MEQ/100ML SWI (KRUN) 10 MEQ in IV 1 EA IV ONE ×2 (13:50→17:15)
[2021-05-10] MEDS ORDERED: NS 1,000 ML IV ONE ×2 (13:50→14:55)
[2021-05-10] MEDS ORDERED: POTASSIUM CHLORIDE 10MEQ SR TABLET PO ONE ×2 (14:00→17:15)
[2021-05-10 14:10] LABS: OSMOLALITY SERUM 304 MOSM/KG (275-295)
[2021-05-10 14:21] LABS: ABG BASE EXCESS -17.1 (-2.0-2.0); ABG HCO3 8.3 MEQ/L (22.0-26.0); ABG O2 SATURATION 98.3 % (95.0-99.0); ABG PARTIAL PRESSURE CO2 20.7 mmHg (35.0-45.0); ABG PARTIAL PRESSURE O2 113.1 mmHg (75.0-100.0); ABG STANDARD HCO3 12.1 MEQ/L (22.0-26.0); ABG TOTAL CO2 8.9 MEQ/L (22.0-29.0)
[2021-05-10 14:26] LABS: ACETONE/KETONE > 46.00 MG/DL (<2.81)
[2021-05-10 14:51] LABS: CK-MB VALUE MASS < 1.0 NG/ML (<3.6); CPK CREATINE PHOSPHOKINASE 48 U/L (26-192); MB/CK RELATIVE INDEX 2.08 (< OR =4)
[2021-05-10 17:01] LABS: LIPASE 66 U/L (73-393)
[2021-05-10] MEDS ORDERED: METF-838 PO (17:08)
[2021-05-10] MEDS ORDERED: FLUC200T4 PO (17:08)
[2021-05-10] MEDS ORDERED: VALT1TAB PO (17:20)
[2021-05-10] MEDS ORDERED: ARNU1INH3 INH (17:20)
[2021-05-10] MEDS ORDERED: NYST10CR TOP (17:46)
[2021-05-10] MEDS ORDERED: HOME MED LIST COMPLETE! XX SCH (17:50)
[2021-05-10 18:25] LABS: ACETONE/KETONE > 46.00 MG/DL (<2.81); BLOOD UREA NITROGEN 11 MG/DL (7-18); CALCIUM LEVEL 8.5 MG/DL (8.5-10.1); CARBON DIOXIDE LEVEL 12 MEQ/L (21-32); CHLORIDE LEVEL 109 MEQ/L (98-107); CREATININE FOR GFR 0.67 MG/DL (0.55-1.30); GLOMERULAR FILTRATION RATE > 60.0 (>60); GLUCOSE, FASTING 296 MG/DL (70-100); POTASSIUM SERUM 3.4 MEQ/L (3.5-5.1); SODIUM LEVEL 135 MEQ/L (136-145)
[2021-05-10] MEDS ORDERED: INSULIN REGULAR IN 0.9 % NACL 100 UNIT in IV 1 EA IV SCH ×2 (18:25)
[2021-05-10] MEDS: KCL 20MEQ in NS 1000ML 1,000 ML IV SCH (18:31)
[2021-05-10] MEDS ORDERED: ALBUTEROL 90 MCG/ACT 8GM HFA INHALER INH PRN (18:50)
[2021-05-10 21:38] VITALS: BP 122/74
[2021-05-10 22:00] VITALS: BP 115/65
[2021-05-10] MEDS: DOXYCYCLINE HYCLATE 100MG TABLET PO SCH (22:02)
[2021-05-10 22:06] LABS: MAGNESIUM LEVEL 1.8 MG/DL (1.7-2.2)
[2021-05-10 23:49] LABS: BLOOD UREA NITROGEN 9 MG/DL (7-18); CALCIUM LEVEL 8.4 MG/DL (8.5-10.1); CARBON DIOXIDE LEVEL 11 MEQ/L (21-32); CHLORIDE LEVEL 110 MEQ/L (98-107); CREATININE FOR GFR 0.73 MG/DL (0.55-1.30); GLOMERULAR FILTRATION RATE > 60.0 (>60); GLUCOSE, FASTING 316 MG/DL (70-100); POTASSIUM SERUM 3.1 MEQ/L (3.5-5.1); SODIUM LEVEL 135 MEQ/L (136-145)
[2021-05-11] VITALS (7 sets, daily range): BP systolic 106–127; BP diastolic 56–79
[2021-05-11] MEDS: INSULIN IV RATE CHANGE DOCUMENTATION ML/HR XX SCH ×2 (00:51→01:17)
[2021-05-11] MEDS: KCL 20MEQ in NS 1000ML 1,000 ML IV SCH ×3 (01:26→17:07)
[2021-05-11] MEDS ORDERED: LEVEMIR (INSULIN DETEMIR) 1 UNITS/0.01ML SC ONE ×2 (01:45→12:00)
[2021-05-11 02:46] LABS: BLOOD UREA NITROGEN 8 MG/DL (7-18); CALCIUM LEVEL 8.6 MG/DL (8.5-10.1); CARBON DIOXIDE LEVEL 14 MEQ/L (21-32); CHLORIDE LEVEL 115 MEQ/L (98-107); CREATININE FOR GFR 0.56 MG/DL (0.55-1.30); GLOMERULAR FILTRATION RATE > 60.0 (>60); GLUCOSE, FASTING 143 MG/DL (70-100); PHOSPHORUS LEVEL 0.7 MG/DL (2.5-4.9); SODIUM LEVEL 138 MEQ/L (136-145)
[2021-05-11] MEDS ORDERED: POTASSIUM PHOSPHATE INJ 30 MMOL in D5W 500 ML IV ONE (04:00)
[2021-05-11] MEDS ORDERED: POTASSIUM CHLORIDE 10MEQ SR TABLET PO ONE (04:55)
[2021-05-11] MEDS ORDERED: DEXTROSE 50% 50 ML SYRINGE IV PRN (04:55)
[2021-05-11] MEDS ORDERED: GLUCOSE 4GM CHEW TABLET PO PRN (04:55)
[2021-05-11] MEDS ORDERED: GLUCAGON INJ 1MG VIAL SC PRN (04:55)
[2021-05-11 05:59] LABS: BASO % 0.7 % (0.0-1.0); EOS # 0.1 10^3/uL (0.0-0.5); EOS % 1.5 % (0.0-3.0); HEMATOCRIT 39.6 % (36.0-47.0); LYMPH # 1.7 10^3/uL (1.5-5.0); LYMPH % 27.8 % (24.0-44.0); MEAN CORPUSCULAR HEMOGLOBIN 29.1 pg (27.0-33.0); MEAN CORPUSCULAR HGB CONC 34.6 g/dl (32.0-36.5); MEAN CORPUSCULAR VOLUME 84.3 fl (80.0-96.0); MONO # 0.8 10^3/uL (0.0-0.8); MONO % 13.7 % (2.0-8.0); NEUTROPHILS # 3.4 10^3/uL (1.5-8.5); NEUTROPHILS % 55.5 % (36.0-66.0); PLATELET COUNT, AUTOMATED 243 10^3/uL (150-450); WHITE BLOOD COUNT 6.1 10^3/uL (4.0-10.0)
[2021-05-11 06:00] LABS: HEMOGLOBIN 13.7 g/dl (12.0-15.5)
[2021-05-11 06:53] LABS: ALBUMIN 2.9 GM/DL (3.2-5.2); ALT/SGPT 13 U/L (12-78); BILIRUBIN,TOTAL 0.5 MG/DL (0.2-1.0); BLOOD UREA NITROGEN 8 MG/DL (7-18); CALCIUM LEVEL 8.4 MG/DL (8.5-10.1); CARBON DIOXIDE LEVEL 13 MEQ/L (21-32); CHLORIDE LEVEL 110 MEQ/L (98-107); CREATININE FOR GFR 0.65 MG/DL (0.55-1.30); GLOMERULAR FILTRATION RATE > 60.0 (>60); GLUCOSE, FASTING 393 MG/DL (70-100); POTASSIUM SERUM 3.6 MEQ/L (3.5-5.1); SODIUM LEVEL 134 MEQ/L (136-145); TOTAL PROTEIN 6.3 GM/DL (6.4-8.2)
[2021-05-11] MEDS ORDERED: HumaLOG INSULIN (NovoLOG) PER UNIT SC SCH ×2 (07:30→21:00)
[2021-05-11] MEDS: PANTOPRAZOLE 40MG VIAL (C9113 PER 1) IV SCH (08:00)
[2021-05-11] MEDS: valACYclovir HCL 500 MG TAB PO SCH (08:01)
[2021-05-11] MEDS: DOXYCYCLINE HYCLATE 100MG TABLET PO SCH ×2 (08:01→20:57)
[2021-05-11] MEDS: HumaLOG INSULIN (NovoLOG) PER UNIT SC SCH ×4 (10:06→20:57)
[2021-05-11 10:24] LABS: BLOOD UREA NITROGEN 7 MG/DL (7-18); CALCIUM LEVEL 8.4 MG/DL (8.5-10.1); CARBON DIOXIDE LEVEL 15 MEQ/L (21-32); CHLORIDE LEVEL 110 MEQ/L (98-107); CREATININE FOR GFR 0.76 MG/DL (0.55-1.30); GLOMERULAR FILTRATION RATE > 60.0 (>60); GLUCOSE, FASTING 362 MG/DL (70-100); POTASSIUM SERUM 3.3 MEQ/L (3.5-5.1); SODIUM LEVEL 136 MEQ/L (136-145)
[2021-05-11] MEDS: NYSTATIN CREAM 15 GM TOP SCH (13:23)
[2021-05-11 19:24] LABS: BLOOD UREA NITROGEN 9 MG/DL (7-18); CALCIUM LEVEL 8.4 MG/DL (8.5-10.1); CARBON DIOXIDE LEVEL 20 MEQ/L (21-32); CHLORIDE LEVEL 110 MEQ/L (98-107); CREATININE FOR GFR 0.63 MG/DL (0.55-1.30); GLOMERULAR FILTRATION RATE > 60.0 (>60); GLUCOSE, FASTING 322 MG/DL (70-100); POTASSIUM SERUM 3.1 MEQ/L (3.5-5.1); SODIUM LEVEL 137 MEQ/L (136-145)
[2021-05-11 21:57] LABS: MAGNESIUM LEVEL 1.6 MG/DL (1.7-2.2)
[2021-05-12] MEDS: KCL 20MEQ in NS 1000ML 1,000 ML IV SCH (00:38)
[2021-05-12] MEDS: HumaLOG INSULIN (NovoLOG) PER UNIT SC SCH ×6 (02:22→20:56)
[2021-05-12 05:58] VITALS: BP 136/62
[2021-05-12 06:38] LABS: HEMATOCRIT 34.6 % (36.0-47.0); HEMOGLOBIN 12.2 g/dl (12.0-15.5); MEAN CORPUSCULAR HEMOGLOBIN 29.3 pg (27.0-33.0); MEAN CORPUSCULAR HGB CONC 35.3 g/dl (32.0-36.5); PLATELET COUNT, AUTOMATED 214 10^3/uL (150-450); RED BLOOD COUNT 4.17 10^6/uL (4.00-5.40); WHITE BLOOD COUNT 4.8 10^3/uL (4.0-10.0)
[2021-05-12 07:05] LABS: BLOOD UREA NITROGEN 9 MG/DL (7-18); CALCIUM LEVEL 8.9 MG/DL (8.5-10.1); CARBON DIOXIDE LEVEL 21 MEQ/L (21-32); CHLORIDE LEVEL 114 MEQ/L (98-107); GLOMERULAR FILTRATION RATE > 60.0 (>60); GLUCOSE, FASTING 227 MG/DL (70-100); POTASSIUM SERUM 2.6 MEQ/L (3.5-5.1); SODIUM LEVEL 141 MEQ/L (136-145)
[2021-05-12] MEDS: DOXYCYCLINE HYCLATE 100MG TABLET PO SCH ×2 (07:55→20:55)
[2021-05-12] MEDS: PANTOPRAZOLE 40MG VIAL (C9113 PER 1) IV SCH (07:55)
[2021-05-12] MEDS: valACYclovir HCL 500 MG TAB PO SCH (07:55)
[2021-05-12] MEDS: KCL 10MEQ/100ML SWI (KRUN) 10 MEQ in IV 1 EA IV SCH ×2 (07:56→09:50)
[2021-05-12] MEDS ORDERED: LEVEMIR (INSULIN DETEMIR) 1 UNITS/0.01ML SC SCH (09:00)
[2021-05-12] MEDS: NYSTATIN CREAM 15 GM TOP SCH (09:49)
[2021-05-12 13:10] LABS: BLOOD UREA NITROGEN 9 MG/DL (7-18); CALCIUM LEVEL 8.5 MG/DL (8.5-10.1); CARBON DIOXIDE LEVEL 19 MEQ/L (21-32); CHLORIDE LEVEL 108 MEQ/L (98-107); CREATININE FOR GFR 0.79 MG/DL (0.55-1.30); GLOMERULAR FILTRATION RATE > 60.0 (>60); GLUCOSE, FASTING 357 MG/DL (70-100); SODIUM LEVEL 138 MEQ/L (136-145)
[2021-05-12 14:00] VITALS: BP 123/77
[2021-05-12] MEDS: LEVEMIR (INSULIN DETEMIR) 1 UNITS/0.01ML SC SCH (18:36)
[2021-05-12 19:04] LABS: MAGNESIUM LEVEL 1.4 MG/DL (1.7-2.2)
[2021-05-12 22:00] VITALS: BP 106/66
[2021-05-13 06:00] VITALS: BP 108/67
[2021-05-13 06:54] LABS: HEMOGLOBIN 12.1 g/dl (12.0-15.5); MEAN CORPUSCULAR HEMOGLOBIN 29.8 pg (27.0-33.0); MEAN CORPUSCULAR HGB CONC 35.6 g/dl (32.0-36.5); MEAN CORPUSCULAR VOLUME 83.7 fl (80.0-96.0); PLATELET COUNT, AUTOMATED 198 10^3/uL (150-450); RED BLOOD COUNT 4.06 10^6/uL (4.00-5.40); WHITE BLOOD COUNT 4.4 10^3/uL (4.0-10.0)
[2021-05-13] MEDS ORDERED: MAG SULF 1GM/100ML (MAG RUN) 1 GM in IV 1 EA IV ONE ×2 (07:10→22:30)
[2021-05-13 07:30] LABS: ALBUMIN 2.5 GM/DL (3.2-5.2); ALT/SGPT 10 U/L (12-78); BILIRUBIN,TOTAL 0.4 MG/DL (0.2-1.0); BLOOD UREA NITROGEN 13 MG/DL (7-18); CALCIUM LEVEL 8.4 MG/DL (8.5-10.1); CARBON DIOXIDE LEVEL 26 MEQ/L (21-32); CHLORIDE LEVEL 108 MEQ/L (98-107); CREATININE FOR GFR 0.61 MG/DL (0.55-1.30); GLOMERULAR FILTRATION RATE > 60.0 (>60); GLUCOSE, FASTING 357 MG/DL (70-100); POTASSIUM SERUM 2.9 MEQ/L (3.5-5.1); SODIUM LEVEL 142 MEQ/L (136-145); TOTAL PROTEIN 5.3 GM/DL (6.4-8.2)
[2021-05-13] MEDS: LEVEMIR (INSULIN DETEMIR) 1 UNITS/0.01ML SC SCH ×2 (07:53→20:09)
[2021-05-13] MEDS: PANTOPRAZOLE 40MG VIAL (C9113 PER 1) IV SCH (07:53)
[2021-05-13] MEDS: valACYclovir HCL 500 MG TAB PO SCH (07:54)
[2021-05-13] MEDS: DOXYCYCLINE HYCLATE 100MG TABLET PO SCH ×2 (07:54→20:08)
[2021-05-13] MEDS: HumaLOG INSULIN (NovoLOG) PER UNIT SC SCH ×4 (07:54→20:15)
[2021-05-13] MEDS: NYSTATIN CREAM 15 GM TOP SCH (07:55)
[2021-05-13] MEDS ORDERED: LEVEMIR (INSULIN DETEMIR) 1 UNITS/0.01ML SC ONE (09:50)
[2021-05-13] MEDS: KCL 10MEQ/100ML SWI (KRUN) 10 MEQ in IV 1 EA IV SCH ×2 (10:25→12:01)
[2021-05-13 14:00] VITALS: BP 111/69
[2021-05-13 16:02] LABS: MAGNESIUM LEVEL 1.5 MG/DL (1.7-2.2)
[2021-05-13 20:31] LABS: BLOOD UREA NITROGEN 16 MG/DL (7-18); CALCIUM LEVEL 8.8 MG/DL (8.5-10.1); CARBON DIOXIDE LEVEL 30 MEQ/L (21-32); CHLORIDE LEVEL 102 MEQ/L (98-107); GLOMERULAR FILTRATION RATE > 60.0 (>60); GLUCOSE, FASTING 337 MG/DL (70-100); POTASSIUM SERUM 3.1 MEQ/L (3.5-5.1); SODIUM LEVEL 140 MEQ/L (136-145)
[2021-05-13 21:00] VITALS: BP 117/73
[2021-05-13] MEDS ORDERED: POTASSIUM CHLORIDE 10MEQ SR TABLET PO ONE (22:30)
[2021-05-14] MEDS: HumaLOG INSULIN (NovoLOG) PER UNIT SC SCH ×6 (00:20→20:52)
[2021-05-14 05:50] LABS: BASO % 0.4 % (0.0-1.0); EOS # 0.2 10^3/uL (0.0-0.5); EOS % 3.7 % (0.0-3.0); HEMATOCRIT 34.4 % (36.0-47.0); HEMOGLOBIN 11.9 g/dl (12.0-15.5); LYMPH # 2.6 10^3/uL (1.5-5.0); LYMPH % 49.2 % (24.0-44.0); MEAN CORPUSCULAR HEMOGLOBIN 29.4 pg (27.0-33.0); MEAN CORPUSCULAR HGB CONC 34.6 g/dl (32.0-36.5); MEAN CORPUSCULAR VOLUME 84.9 fl (80.0-96.0); MONO # 0.6 10^3/uL (0.0-0.8); MONO % 10.6 % (2.0-8.0); NEUTROPHILS # 1.9 10^3/uL (1.5-8.5); NEUTROPHILS % 35.7 % (36.0-66.0); PLATELET COUNT, AUTOMATED 202 10^3/uL (150-450); RED BLOOD COUNT 4.05 10^6/uL (4.00-5.40); WHITE BLOOD COUNT 5.2 10^3/uL (4.0-10.0)
[2021-05-14 06:00] VITALS: BP 113/67
[2021-05-14 06:33] LABS: BLOOD UREA NITROGEN 15 MG/DL (7-18); CALCIUM LEVEL 8.6 MG/DL (8.5-10.1); CARBON DIOXIDE LEVEL 29 MEQ/L (21-32); CHLORIDE LEVEL 107 MEQ/L (98-107); CREATININE FOR GFR 0.51 MG/DL (0.55-1.30); GLOMERULAR FILTRATION RATE > 60.0 (>60); GLUCOSE, FASTING 192 MG/DL (70-100); POTASSIUM SERUM 2.6 MEQ/L (3.5-5.1); SODIUM LEVEL 144 MEQ/L (136-145)
[2021-05-14] MEDS ORDERED: POTASSIUM CHLORIDE 10MEQ SR TABLET PO ONE (06:45)
[2021-05-14] MEDS: KCL 10MEQ/100ML SWI (KRUN) 10 MEQ in IV 1 EA IV SCH ×4 (07:01→10:38)
[2021-05-14] MEDS: valACYclovir HCL 500 MG TAB PO SCH (08:19)
[2021-05-14] MEDS: LEVEMIR (INSULIN DETEMIR) 1 UNITS/0.01ML SC SCH ×2 (08:19→20:53)
[2021-05-14] MEDS: PANTOPRAZOLE 40MG VIAL (C9113 PER 1) IV SCH (08:20)
[2021-05-14] MEDS: DOXYCYCLINE HYCLATE 100MG TABLET PO SCH ×2 (08:20→20:51)
[2021-05-14] MEDS: NYSTATIN CREAM 15 GM TOP SCH (08:22)
[2021-05-14 12:33] LABS: BLOOD UREA NITROGEN 16 MG/DL (7-18); CARBON DIOXIDE LEVEL 25 MEQ/L (21-32); CHLORIDE LEVEL 105 MEQ/L (98-107); GLOMERULAR FILTRATION RATE > 60.0 (>60); GLUCOSE, FASTING 275 MG/DL (70-100); POTASSIUM SERUM 3.9 MEQ/L (3.5-5.1); SODIUM LEVEL 137 MEQ/L (136-145)
[2021-05-14 14:00] VITALS: BP 117/69
[2021-05-14 21:00] VITALS: BP 118/70
[2021-05-15] MEDS: HumaLOG INSULIN (NovoLOG) PER UNIT SC SCH ×3 (00:42→07:45)
[2021-05-15 07:25] VITALS: BP 115/71
[2021-05-15 08:28] LABS: HEMATOCRIT 39.9 % (36.0-47.0); HEMOGLOBIN 13.2 g/dl (12.0-15.5); MEAN CORPUSCULAR HEMOGLOBIN 28.9 pg (27.0-33.0); MEAN CORPUSCULAR HGB CONC 33.1 g/dl (32.0-36.5); MEAN CORPUSCULAR VOLUME 87.3 fl (80.0-96.0); PLATELET COUNT, AUTOMATED 291 10^3/uL (150-450); RED BLOOD COUNT 4.57 10^6/uL (4.00-5.40); WHITE BLOOD COUNT 9.3 10^3/uL (4.0-10.0)
[2021-05-15] MEDS: PANTOPRAZOLE 40MG VIAL (C9113 PER 1) IV SCH (08:40)
[2021-05-15] MEDS: valACYclovir HCL 500 MG TAB PO SCH (08:41)
[2021-05-15] MEDS: LEVEMIR (INSULIN DETEMIR) 1 UNITS/0.01ML SC SCH (08:41)
[2021-05-15] MEDS: NYSTATIN CREAM 15 GM TOP SCH (08:41)
[2021-05-15] MEDS: DOXYCYCLINE HYCLATE 100MG TABLET PO SCH (08:41)
[2021-05-15 09:10] LABS: BLOOD UREA NITROGEN 17 MG/DL (7-18); CARBON DIOXIDE LEVEL 29 MEQ/L (21-32); CHLORIDE LEVEL 107 MEQ/L (98-107); CREATININE FOR GFR 0.51 MG/DL (0.55-1.30); GLOMERULAR FILTRATION RATE > 60.0 (>60); GLUCOSE, FASTING 68 MG/DL (70-100); POTASSIUM SERUM 2.9 MEQ/L (3.5-5.1); SODIUM LEVEL 146 MEQ/L (136-145)
[2021-05-15] MEDS ORDERED: POTASSIUM CHLORIDE 10MEQ SR TABLET PO ONE ×3 (10:05→14:00)
[2021-05-15] MEDS ORDERED: HumaLOG INSULIN (NovoLOG) PER UNIT SC SCH ×2 (12:00→21:00)
[2021-05-15 12:45] LABS: BLOOD UREA NITROGEN 16 MG/DL (7-18); CALCIUM LEVEL 8.9 MG/DL (8.5-10.1); CARBON DIOXIDE LEVEL 27 MEQ/L (21-32); CHLORIDE LEVEL 102 MEQ/L (98-107); CREATININE FOR GFR 0.63 MG/DL (0.55-1.30); GLOMERULAR FILTRATION RATE > 60.0 (>60); GLUCOSE, FASTING 273 MG/DL (70-100); POTASSIUM SERUM 3.5 MEQ/L (3.5-5.1); SODIUM LEVEL 138 MEQ/L (136-145)
[2021-05-15] MEDS ORDERED: DOXY100T PO (13:14)
[2021-05-15] MEDS ORDERED: LANC30MI XX (13:14)
[2021-05-15] MEDS ORDERED: BLOOKIT21 XX (13:14)
[2021-05-15] MEDS ORDERED: ALCOPAD25 TOP (13:14)
[2021-05-15] MEDS ORDERED: GLUC1TES2 XX (13:14)
[2021-05-15] MEDS ORDERED: HUMA100I14 SC ×2 (13:21→13:22)
[2021-05-15] MEDS ORDERED: LEVE1INJ5 SC (13:21)
[2021-05-15 14:00] VITALS: BP 120/72
[2021-05-15] MEDS ORDERED: INSU1MIS20 SC (14:57)
[2021-05-15] MEDS ORDERED: ADME100I SC (14:57)
[2021-05-15] MEDS ORDERED: BASA100I SC (14:57)
[2021-05-15 17:27] LABS: MAGNESIUM LEVEL 1.9 MG/DL (1.7-2.2)
[2021-05-15] MEDS ORDERED: LEVEMIR (INSULIN DETEMIR) 1 UNITS/0.01ML SC SCH (21:00)
[2021-05-16] MEDS ORDERED: LEVEMIR (INSULIN DETEMIR) 1 UNITS/0.01ML SC SCH (09:00)
== END 2021-05-15 15:20 | disposition home or self-care (01) | DRG 420 ==
LOC: M ED 11:09 → M ED INP 18:21 → ENRESERV 20:24 → M PCU 21:29 → M MSPAV 05-11 05:59
PROVIDERS: ADMIT Internal Medicine; ATTEND Internal Medicine
DX: E11.10 Type 2 diabetes mellitus with ketoacidosis without coma (principal); J45.909 Unspecified asthma, uncomplicated; Z90.49 Acquired absence of other specified parts of digestive tract; Z79.84 Long term (current) use of oral hypoglycemic drugs; Z20.822 Contact with and (suspected) exposure to COVID-19; Z79.2 Long term (current) use of antibiotics; E87.6 Hypokalemia; E83.42 Hypomagnesemia

== ENCOUNTER → 2021-06-07 | Outpatient (CLI) | payer OTHER ==
[~2021-06-07] MED LIST changes: +ADME100I SC; +ALCOPAD25 TOP; +ARNU1INH3 INH; +BASA100I SC; +BLOOKIT21 XX; +DOXY100T PO; +FLUC200T4 PO; +GLUC1TES2 XX; +GLYC2TAB18 PO; +HUMA100I14 SC; +INSU1MIS20 SC; +LANC30MI XX; +LEVE1INJ5 SC; +METF-838 PO; +NYST10CR TOP; +VALT1TAB PO
[2021-06-07 14:01] LABS: BASO # 0.1 10^3/uL (0.0-0.2); BASO % 0.7 % (0.0-1.0); EOS # 0.5 10^3/uL (0.0-0.5); EOS % 7.8 % (0.0-3.0); HEMATOCRIT 40.5 % (36.0-47.0); HEMOGLOBIN 12.9 g/dl (12.0-15.5); LYMPH # 1.6 10^3/uL (1.5-5.0); LYMPH % 23.3 % (24.0-44.0); MEAN CORPUSCULAR HEMOGLOBIN 29.1 pg (27.0-33.0); MEAN CORPUSCULAR HGB CONC 31.9 g/dl (32.0-36.5); MEAN CORPUSCULAR VOLUME 91.4 fl (80.0-96.0); MONO # 0.6 10^3/uL (0.0-0.8); MONO % 8.6 % (2.0-8.0); NEUTROPHILS # 4.1 10^3/uL (1.5-8.5); NEUTROPHILS % 59.3 % (36.0-66.0); PLATELET COUNT, AUTOMATED 340 10^3/uL (150-450); RED BLOOD COUNT 4.43 10^6/uL (4.00-5.40)
[2021-06-07 15:19] LABS: ALT/SGPT 19 U/L (12-78); BILIRUBIN,TOTAL 0.4 MG/DL (0.2-1.0); BLOOD UREA NITROGEN 15 MG/DL (7-18); CALCIUM LEVEL 9.1 MG/DL (8.5-10.1); CARBON DIOXIDE LEVEL 27 MEQ/L (21-32); CHLORIDE LEVEL 109 MEQ/L (98-107); CREATININE FOR GFR 0.66 MG/DL (0.55-1.30); GLOMERULAR FILTRATION RATE > 60.0 (>60); GLUCOSE, FASTING 297 MG/DL (70-100); POTASSIUM SERUM 4.7 MEQ/L (3.5-5.1); SODIUM LEVEL 140 MEQ/L (136-145); TRIGLYCERIDES LEVEL 66 MG/DL (<150)
[2021-06-07 15:20] LABS: ALBUMIN 3.3 GM/DL (3.2-5.2); CHOLESTEROL LEVEL 142 MG/DL (<200); HDL CHOLESTEROL 40 MG/DL (>40); LDL CHOLESTEROL 89 MG/DL (<100); NON-HDL-C 102 MG/DL; THYROID STIMULATING HORMONE 0.885 uIU/ML (0.358-3.740); TOTAL PROTEIN 6.5 GM/DL (6.4-8.2)
[2021-06-07 18:06] LABS: HEMOGLOBIN A1c 10.6 %
== END ==
LOC: M PLALAB 09:00
PROVIDERS: ATTEND Nurse Practitioner Family
DX: R73.03 Prediabetes (principal)

== ENCOUNTER → 2021-06-29 | Outpatient (REF) | payer OTHER | LOC: M SFHCDERM 13:44 | PROVIDERS: ATTEND Nurse Practitioner Family | DX: L57.0 Actinic keratosis (principal) ==

== ENCOUNTER → 2021-07-09 | Outpatient (CLI) | payer OTHER | LOC: M PLALAB 09:37 | PROVIDERS: ATTEND Nurse Practitioner Family | DX: E11.10 Type 2 diabetes mellitus with ketoacidosis without coma (principal) ==

== ENCOUNTER → 2021-12-27 | Outpatient (REF) ==
[~2021-12-27] MED LIST changes: +NYST-13 TOP; -NYST10CR TOP
== END ==
LOC: M LABSMTC 10:53
PROVIDERS: ATTEND Family Medicine
DX: Z11.52 Encounter for screening for COVID-19 (principal)

== ENCOUNTER → 2023-11-12 | Outpatient (CLI) | payer OTHER ==
[~2023-11-12] MED LIST changes: +INSU100I6 SC; -LEVE1INJ5 SC
[2023-11-12 12:00] LABS: HEMOGLOBIN A1c 9.9 % (4.0-6.0)
[2023-11-12 12:05] LABS: CREATININE, URINE 145.3 MG/DL
[2023-11-12 12:06] LABS: MAU/CREAT RATIO 6.8 MCG/MG (0.0-30.0)
[2023-11-12 12:07] LABS: ALBUMIN 3.8 G/DL (3.2-5.2); ALKALINE PHOSPHATASE 60 U/L (46-116); ALT/SGPT 18 U/L (7.0-40); AST/SGOT 10 U/L (<34); BILIRUBIN,TOTAL 0.5 MG/DL (0.3-1.2); BLOOD UREA NITROGEN 15 MG/DL (9-23); CARBON DIOXIDE LEVEL 30 MMOL/L (20-31); CHLORIDE LEVEL 106 MMOL/L (98-107); CHOLESTEROL LEVEL 132 MG/DL (<200); CHOLESTEROL RISK RATIO 3.12 (<5); CREATININE FOR GFR 0.61 MG/DL (0.55-1.30); FREE T4 1.32 NG/DL (0.89-1.76); GLOMERULAR FILTRATION RATE > 60.0 (>60); GLUCOSE, FASTING 116 MG/DL (60-100); HDL CHOLESTEROL 42.2 MG/DL (>40); LDL CHOLESTEROL 74.6 MG/DL (<100); NON-HDL-C 89.8 MG/DL; POTASSIUM SERUM 4.4 MMOL/L (3.5-5.1); SODIUM LEVEL 140 MMOL/L (136-145); THYROID STIMULATING HORMONE 1.215 uIU/ML (0.55-4.78); TOTAL PROTEIN 6.7 G/DL (5.7-8.2); TRIGLYCERIDES LEVEL 76 MG/DL (<150)
[2023-11-12 12:08] LABS: TOTAL 25(OH) VITAMIN D 34.4 NG/ML (20.0-100.0)
== END ==
LOC: M PLALAB 08:53
PROVIDERS: ATTEND Nurse Practitioner Adult Health
DX: E10.65 Type 1 diabetes mellitus with hyperglycemia (principal)

== ENCOUNTER → 2023-12-11 | Outpatient (REF) | LOC: M EMP 09:34 | PROVIDERS: ATTEND Family Medicine | DX: Z11.52 Encounter for screening for COVID-19 (principal) ==

== ENCOUNTER → 2024-01-02 | Outpatient (CLI) | payer OTHER | LOC: M WHC 10:49 | PROVIDERS: ATTEND Obstetrics & Gynecology | DX: N93.9 Abnormal uterine and vaginal bleeding, unspecified (principal) ==

== ENCOUNTER → 2024-11-19 | Outpatient (CLI) | payer OTHER ==
[~2024-11-19] MED LIST changes: +ALBU8.5H INH; +BUPR-766 PO; +BUSP10TA PO; +FLUC-1 PO; -FLUC200T4 PO; +FLUO-365 PO; +GABA-1172 PO; -GABA-282 PO; +INSU100V6 SC; +LANTINJ4 SC; +LISI2.5T9 PO; -NYST-13 TOP; +NYST0.1C TOP
[2024-11-19 14:10] LABS: PLATELET COUNT, AUTOMATED 303 10^3/uL (150-450)
[2024-11-19 14:17] LABS: ALT/SGPT 14 U/L (7.0-40); AST/SGOT 14 U/L (<34); CALCIUM LEVEL 9.2 MG/DL (8.5-10.1); CARBON DIOXIDE LEVEL 29 MMOL/L (20-31); CHLORIDE LEVEL 107 MMOL/L (98-107); CREATININE FOR GFR 0.60 MG/DL (0.55-1.30); FREE T4 1.49 NG/DL (0.89-1.76); GLOMERULAR FILTRATION RATE > 90.0 (>60); IRON (FE) 88 UG/DL (50-170); PERCENT SATURATION 26.7 % (13.2-45.0); POTASSIUM SERUM 4.6 MMOL/L (3.5-5.1); SODIUM LEVEL 142 MMOL/L (136-145)
[2024-11-19 14:26] LABS: ESTIMATED AVERAGE GLUCOSE 249.0 MG/DL (60-110)
[2024-11-19 14:41] LABS: CREATININE, URINE 84.0 MG/DL; MALB URINE SIEMENS < 3.0 MG/L
== END ==
LOC: M PLALAB 09:10
PROVIDERS: ATTEND Nurse Practitioner Adult Health
DX: N93.9 Abnormal uterine and vaginal bleeding, unspecified (principal); E10.65 Type 1 diabetes mellitus with hyperglycemia; Z13.29 Encounter for screening for other suspected endocrine disorder